=== PATIENT | male | born 1995 | race Caucasian/White ===

== ENCOUNTER 2020-10-11 15:26 | Emergency (ER) | payer MEDICAID, SELFPAY ==
[2020-10-11 15:53] VITALS: BP 140/88; PULSE 95; RESP 18; TEMP 36.9; O2SAT 99; BMI 29.2
[2020-10-11 16:35] VITALS: BP 146/82; PULSE 92; RESP 18; TEMP 36.4; O2SAT 97
--- NOTE | 2020-10-11 18:08 | ED_ITS ---
HPI - Allergic Reaction General Chief complaint: Allergic Reaction Stated complaint: ? ALLERGIC REACTION S/P EATING SANDWICH Time Seen by Provider: 10/11/20 18:02 Source: patient Mode of arrival: ambulatory Limitations: no limitations History of Present Illness HPI narrative: Patient is a 25-year-old male with no significant past medical history who states that approximately 6 hours ago he ate a egg cheese and red sandwich then took a nap woke up approximately 2 hours later and felt like he was having an allergic reaction, he describes this as feeling like some swelling in his throat and trouble swallowing. He states that has pretty much completely resolved. 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 He states he does not own EpiPen. He denies any tingling in the back of his throat or trouble breathing currently. Denies any swelling of his tongue or lips. Denies nausea and vomiting. Related Data Previous Rx's Medication Instructions Recorded diphenhydramine HCl [Benadryl] 25 mg PO Q6H PRN #10 cap 10/11/20 prednisone 50 mg PO DAILY #3 tab 10/11/20 Allergies Allergy/AdvReac Type Severity Reaction Status Date / Time No Known Allergies Allergy Unverified 03/08/20 19:50 [No Known Allergies*] Review of Systems Review of Systems: Yes all other systems are reviewed and are negative [facility] Past Medical History Medical History No known health problems Social History Social History Advance Directives: No Advance Directives Information Provided: Yes Physical Exam Vital Signs: Vital Signs: Last Vital Signs Temp 97.5 F 10/11/20 18:26 Pulse 84 10/11/20 18:26 Resp 18 10/11/20 18:26 BP 130/75 10/11/20 18:26 Pulse Ox 97 10/11/20 18:26 Body Mass Index 29.2 Const: General: cooperative, healthy appearing, comfortable, no acute distress and well developed Orientation/consciousness: patient oriented x3 Limitations: no limitations HENMT: Head: Yes normal to inspection General nose exam: Normal external nose present Face and sinus: Yes normal facial exam Mouth: Normal oral and palatal mucosa present, lip normal, tongue normal, oropharynx normal and moist mucous membranes Throat: Yes posterior oropharynx normal Eyes: General: appearance normal, both eyes and all related structures Neck: Neck: Yes normal visual inspection and Yes full ROM Resp: Effort & Inspection: normal respiratory effort and able to speak in complete sentences Auscultation: clear to auscultation bilaterally Cardio: Rate: regular rate Rhythm: regular rhythm Heart sounds: normal S1 and S2 GI: Inspection: Yes normal to inspection Skin: General skin exam: no rashes or lesions noted Neuro: General: patient oriented x3 Extrem: General: Yes normal to inspection Course Course Course Narrative: Patient is a 25-year-old male with no significant past medical history who reports eating a and she is in bread sandwich approximately 6 hours ago, states he took a nap and woke up 2 hours later feeling like he had some swelling in his throat and difficulty swallowing. He denies any other symptoms at this time and says the swelling and difficulty swallowing has pretty much resolved. He did not take any Benadryl or use an EpiPen. Patient's final signs are stable, he is breathing easily and physical exam revealed his lungs are clear. Will give patient Benadryl, famotidine and prednisone and observed for 2 more hours then likely discharge if stable. Reevaluation(s) Reevaluation #1: Patient's vital signs continue to be stable, he reports feeling much better. Will discharge home with strict instructions on when to return to the ER. Time: 19:44 Discharge Plan Discharge Clinical Impression: Allergic reaction Patient Disposition: Home, Self-Care Prescriptions: New diphenhydramine HCl [Benadryl] 25 mg capsule 25 mg PO Q6H PRN (Reason: allergic reaction) Qty: 10 RF: 0 prednisone 50 mg tablet 50 mg PO DAILY Qty: 3 RF: 0 Referrals: Colby Newell [Physician] - 2 days
[2020-10-11 18:26] VITALS: BP 130/75; PULSE 84; RESP 18; TEMP 36.4; O2SAT 97
[2020-10-11] MEDS: predniSONE 10 MG TABLET 50 MG PO (18:29)
[2020-10-11] MEDS: diphenhydrAMINE HCL 25 MG TABLET 50 MG PO (18:30)
[2020-10-11] MEDS: Famotidine 20 MG TABLET PO (18:30)
--- NOTE | 2020-10-11 19:23 | PC.NURSE ---
PT RESTING ON BED. RESP UNLABORED. NO SYMPTOMS. MONITOR NSR. 02 SAT 98%.
== END 2020-10-11 20:07 | disposition home or self-care (01) ==
PROVIDERS: Emergency Provider Internal Medicine
DX: L23.9 Allergic contact dermatitis, unspecified cause (principal); Z79.899 Other long term (current) drug therapy
CPT/HCPCS: 99284; Q0163

== ENCOUNTER 2021-08-06 04:45 | Emergency (ER) | payer MEDICAID, SELFPAY ==
[2021-08-06 04:46] VITALS: BP 158/99; PULSE 72; RESP 16; TEMP 36.6; O2SAT 100; BMI 28.0
[2021-08-06] MEDS: diphenhydrAMINE HCL 50 MG/ML VIAL IVPUSH (05:17)
[2021-08-06] MEDS: methylPREDNISolone Sod Succ 125 MG/2 ML VIAL IVPUSH (05:17)
[2021-08-06] MEDS: Famotidine/PF 20 MG/2 ML VIAL IVPUSH (05:17)
[2021-08-06] MEDS: 0.9 % Sodium Chloride 1,000 ML 999 ML IV (05:18)
--- NOTE | 2021-08-06 05:57 | ED.ALLEREA ---
HPI - Allergic Reaction General Chief complaint: Allergic Reaction Stated complaint: difficulty breathing; allergic reaction ? Time Seen by Provider: 08/06/21 05:03 Source: patient Mode of arrival: ambulatory Limitations: no limitations History of Present Illness HPI narrative: 26 years old male came in for evaluation of scratchy throat and uvula swelling. Woke up this morning with feeling itchy throat and the uvula was swollen, patient was able to swallow his own saliva, patient noted to have mild lips swelling and tongue swelling, but no stridor or difficulty breathing, patient had similar symptoms in the past was told allergic reaction. Patient declined taking any medication. No change in his daily routine, no change in the detergent, no change using soap. No voice change. Related Data Previous Rx's Medication Instructions Recorded diphenhydramine HCl 25 mg capsule 25 mg PO Q6H PRN #7 cap 10/11/20 (Benadryl) epinephrine 0.3 mg/0.3 mL 0.3 mg (0.3 mL) IM Q10M PRN #1 ea 10/11/20 injection syringe prednisone 50 mg tablet 50 mg PO DAILY #1 tab 10/11/20 prednisone 20 mg tablet 20 mg PO BID #6 tab 08/06/21 Allergies Allergy/AdvReac Type Severity Reaction Status Date / Time No Known Allergies Allergy Unverified 03/08/20 19:50 [No Known Allergies*] Review of Systems Review of Systems: All other systems are reviewed and are negative Constitutional: Reports as per HPI and Reports no additional constitutional complaints Eyes: Reports as per HPI and Reports no additional eye complaints Reports system reviewed and no additional complaints, except as documented Cardiovascular: Reports as per HPI and Reports no additional cardiovascular complaints Respiratory: Reports as per HPI and Reports no additional respiratory complaints Gastrointestinal: Reports as per HPI and Reports no additional gastrointestinal complaints Genitourinary: Reports no additional female genitourinary complaints Musculoskeletal: Reports no additional musculoskeletal complaints Skin/Breast: Reports system reviewed and no additional complaints, except as docu Psychiatric: Reports no additional psychiatric complaints Endocrine: Reports no additional endocrine complaints Hematologic/Lymphatic: Reports no additional hematologic/lymphatic complaints Allergic/Immunologic: Reports no additional allergic/immunologic complaints Reports system reviewed and no additional complaints, except as documented and Reports Abnormal speech present [facility] Past Medical History Medical History No known health problems Social History Social History Advance Directives: No Physical Exam ED Vital Signs: Vital Signs - 24 hr 08/06/21 04:46 08/06/21 06:25 Temperature 97.8 F Pulse Rate 72 58 Respiratory Rate 16 18 Blood Pressure 158/99 H 122/73 Pulse Oximetry 100 100 BMI result Body Mass Index 28.0 vital signs have been reviewed as appeared to be correct. Blood pressure normal. Heart rate normal. Respiration rate normal. Temperature normal. Oxygen saturation normal. Appearance: Alert. Oriented X3. No acute distress. Head: Normal external exam. Normocephalic. Atraumatic. No Tripp signs noted. No raccoon eyes noted Eyes: PERRLA. EOMI. Conjunctiva and sclera normal. Eyelids normal. ENT: TM's Normal. Pharynx normal. Uvula midline. Moist mucous membranes. No trismus noted. No drooling noted. No muffled voice noted. Patent airway with no stridor Neck: Normal inspection. Neck supple. FROM. No adenopathy. Thyroid Normal. No meningeal signs. No neck mass noted. CVS: Normal heart rate and rhythm. Heart sound normal. No murmurs noted. Pulses normal throughout. Respiratory: No respiratory distress. Painless inspiration. Breath sounds normal. No wheezes/rales/rhonchi noted. Chest nontender. No accessory muscle usage noted or decreased air movement noted. Abdomen: Soft and nontender. Bowel sounds normal in all 4 quadrants. No distention noted. No organomegaly noted. No visible injury noted. Back: No CVA tenderness. Full range of motion noted. Skin: Skin warm and dry. Normal skin color. Normal skin turgor. No rashes/lesions/lacerations noted. Extremities: No lower extremity edema. Extremities exhibit normal range of motion. Extremities nontender. Neuro: Oriented X 3. Cranial nerve exam: II-XII are grossly intact No motor deficit. No sensory deficit. Reflexes normal. Course Course Course Narrative: assessment and plan. Patient woke up with swelling of the uvula and tongue and lips. Patient is not taking any medication at home, with no change in his daily routine. Today's symptoms happened in the past patient did not see his PCP for further workup as an outpatient. Discharge the patient on prednisone for 3 days. Patient was instructed to follow up with his PCP for an outpatient workup for his symptoms. MDM - Allergic Reaction Medical Records Attestation: I reviewed the patient's medical records. Lab Data Attestation: I reviewed the patient's lab results. Labs: Lab Results 08/06/21 08/06/21 Range/Units 06:06 06:06 COVID-19 ([facility]IL[facility]INO) Negative (Negative) COVID-19 Clin Com See Note S. pyogenes GrpA DONOVAN Negative (Negative) Discharge Plan Discharge Clinical Impression: Angioedema Patient Disposition: Home, Self-Care Instructions: Angioedema (ED) Prescriptions: New prednisone 20 mg tablet 20 mg PO BID Qty: 6 0RF No Action epinephrine 0.3 mg/0.3 mL syringe 0.3 mg IM Q10M PRN (Reason: anaphylaxis) Qty: 1 1RF Rx Instructions: for 2 doses prednisone 50 mg tablet 50 mg PO DAILY Qty: 1 0RF diphenhydramine HCl [Benadryl] 25 mg capsule 25 mg PO Q6H PRN (Reason: allergic reaction) Qty: 7 0RF Referrals: Physician,None [Primary Care Provider] - 2 days
[2021-08-06 06:25] VITALS: BP 122/73; PULSE 58; RESP 18; O2SAT 100
[2021-08-06 06:41] LABS: COVID-19 Test Negative (Negative); IDNOW Serial# 55D5AD1C; Strep A Nucleic Acid Negative (Negative)
--- NOTE | 2021-08-06 06:50 | PC.NURSE ---
I assumed care of this pt upon his arrival to bed 1 from the waiting room. He presents for evaluation of lip and tongue swelling and the sensation that his uvula is enlarged. no redness or rash noted. THere is mild lip and tongue swelling noted on arrival, no uvular swelling., no hoarseness, no shortness of breath. He is speaking in full sentences, no cyanosis, room air O2 sat's 95% or better. IV access/labs were obtained. Ordered IVP meds have been administered. Pt is resting in bed awaiting MD dispo.
== END 2021-08-06 07:08 | disposition home or self-care (01) ==
PROVIDERS: Emergency Provider Emergency Medicine
DX: T78.3XXA Angioneurotic edema, initial encounter (principal); T78.40XA Allergy, unspecified, initial encounter; X58.XXXA Exposure to other specified factors, initial encounter
CPT/HCPCS: 87635; 87651; 96361; 96374; 96375; 99284; J1200; J2930

== ENCOUNTER 2021-11-07 22:38 | Emergency (ER) | payer OTHER, SELFPAY ==
[2021-11-07 23:33] VITALS: BP 131/80; PULSE 92; RESP 18; TEMP 37.6; O2SAT 98; BMI 28.8
[2021-11-08 00:14] LABS: COVID-19 Test Negative (Negative); IDNOW Serial# 08D9AD1C; Influenza A Negative (Negative); Influenza B2 Negative (Negative)
--- NOTE | 2021-11-08 00:53 | ED_ITS ---
HPI - URI/Sore Throat General Chief Complaint: General Medical Stated Complaint: Flu like symptoms Time Seen by Provider: 11/08/21 00:43 Source: patient Mode of arrival: ambulatory Limitations: no limitations History of Present Illness HPI Narrative: Patient presents to the emergency department for evaluation of low-grade fevers him 100.4, headache, and body aches for the past 2 days. He has been taking Tylenol which helps but then the headache and fever returns. Reports that his daughter was sick with similar symptoms 3 days ago. Denies nasal congestion, sore throat, neck pain, neck stiffness, cough, chest pain, palpitations, shortness of breath, difficulty breathing, nausea, vomiting, diarrhea, abdominal pain dysuria, urinary frequency. MD elicited complaint: fever Onset (ago): day(s) Consistency: intermittent Able to tolerate fluids by mouth: Yes Related Data Previous Rx's Medication Instructions Recorded diphenhydramine HCl 25 mg capsule 25 mg PO Q6H PRN #7 cap 10/11/20 (Benadryl) epinephrine 0.3 mg/0.3 mL 0.3 mg (0.3 mL) IM Q10M PRN #1 ea 10/11/20 injection syringe prednisone 50 mg tablet 50 mg PO DAILY #1 tab 10/11/20 prednisone 20 mg tablet 20 mg PO BID #6 tab 08/06/21 Allergies Allergy/AdvReac Type Severity Reaction Status Date / Time No Known Allergies Allergy Unverified 03/08/20 19:50 [No Known Allergies*] Review of Systems Review of Systems: Constitutional: Positive fever. No chills. No weakness. Positive body aches ENT/ Mouth: No Ear Pain, no Nasal Congestion, no sore throat, No Rhinorrhea, No Swallowing Difficulty Skin: No rash or itching. Cardiovascular: No chest pain. No palpitations. Respiratory: No shortness of breath. No cough. No sputum production. Gastrointestinal: No nausea. No vomiting. No diarrhea. No abdominal pain. Genitourinary: No burning micturition. No urinary frequency. Neurologic: Positive headache. No dizziness. No syncope. No numbness or tingling in the extremities. Musculoskeletal: No muscle pain. No back pain. No joint pain or stiffness. Yes all other systems are reviewed and are negative PMFSH Past Medical History Attestation statement: The following information was validated with the patient. Source: old records reviewed Medical History No known health problems Social History Social History Advance Directives: No Advance Directives Information Provided: No Physical Exam Vital Signs: Vital Signs: Last Vital Signs Temp 99.6 F 11/07/21 23:33 Pulse 92 11/07/21 23:33 Resp 18 11/07/21 23:33 BP 131/80 11/07/21 23:33 Pulse Ox 98 11/07/21 23:33 BMI result Body Mass Index 28.8 Vital signs have been reviewed as normal and appeared to be correct. Blood pressure normal.? Heart rate normal.? Respiration rate normal. Temperature normal.? Oxygen saturation normal. Appearance: Alert.?Oriented to person, place and time. No acute distress.?Normal affect. Eyes: Pupils equal, round and reactive to light.? ENT: TM normal bilaterally. Pharynx normal.?? Neck: Normal inspection.? Neck supple.??No cervical adenopathy CVS: Heart sounds normal. Normal heart rate and rhythm.? Pulses normal.?? Respiratory: No respiratory distress.? Lung sounds clear to auscultation bilaterally?? Abdomen: Soft and non-tender. Normoactive bowel sounds. Skin: Skin warm and dry.? Normal skin color.? ? Extremities: No lower extremity edema.? Neuro: Moves all extremities spontaneously. Sensation intact bilaterally. No motor deficits. Ambulates with normal steady gait. No meningismus Course Course Course Narrative: Patient is a 26-year-old male with no significant past medical history prese nting for low-grade fever, headache, body aches. COVID-19 testing negative. Influenza testing negative. At this time history and physical exam not consistent with meningitis. Well-appearing, nontoxic, afebrile, no tachycardia or tachypnea/hypoxia. Speaking clear full sentences, ambulatory with steady gait. Symptoms most consistent with viral syndrome, given recent sick exposure to his child. Discussed conservative treatment including rest, hydration, Tylenol/ibuprofen as needed for fever and body aches, recommended to have repeat COVID-19 testing in a couple of days if he continues to have symptoms. Advised to follow-up with primary care provider as needed, discussed reasons to return back to the emergency department. All questions were answered. Patient discharged home in stable condition. Provided with a return to work/school note. MDM - URI/Sore Throat Medical Records Attestation: I reviewed the patient's medical records. Lab Data Attestation: I reviewed the patient's lab results. Labs: Lab Results 11/07/21 11/07/21 Range/Units 23:24 23:24 COVID-19 ([facility]INO) Negative (Negative) COVID-19 Clin Com See Note Influenza Type A (DONOVAN) Negative (Negative) Influenza Type B (DONOVAN) Negative (Negative) Influenza A & B Note See Note Discharge Plan Discharge Clinical Impression: Acute viral syndrome Patient Disposition: Home, Self-Care Instructions: Viral Syndrome (ED) Additional Instructions: You can take ibuprofen 200 mg, 3 tablets (600mg) every 6-8 hours as needed for pain, in addition to Tylenol 500 mg, 2 tablets (1,000mg) every 4-6 hours as needed for pain, but not to exceed 3 doses daily (3,000mg).? Return to the emergency department any new or worsening symptoms or concerns. Follow-up with your primary care provider as needed. Prescriptions: No Action epinephrine 0.3 mg/0.3 mL syringe 0.3 mg IM Q10M PRN (Reason: anaphylaxis) Qty: 1 1RF Rx Instructions: for 2 doses prednisone 50 mg tablet 50 mg PO DAILY Qty: 1 0RF diphenhydramine HCl [Benadryl] 25 mg capsule 25 mg PO Q6H PRN (Reason: allergic reaction) Qty: 7 0RF prednisone 20 mg tablet 20 mg PO BID Qty: 6 0RF Stand Alone Forms: Work/School Release Interventions: ED Discharge Assessment Last Done: 11/08/21 01:09 Discharge Date/Time: 11/08/21 01:10
== END 2021-11-08 01:10 | disposition home or self-care (01) ==
PROVIDERS: Emergency Provider Internal Medicine
DX: B34.9 Viral infection, unspecified (principal); Z20.822 Contact with and (suspected) exposure to COVID-19
CPT/HCPCS: 87502; 87635; 99282; 99283

== ENCOUNTER 2022-06-05 23:10 | Emergency (ER) | payer OTHER, SELFPAY ==
[2022-06-05 23:13] VITALS: BP 129/96; PULSE 115; RESP 18; TEMP 37.2; O2SAT 97; BMI 28.8
--- NOTE | 2022-06-05 23:34 | ED_ITS ---
HPI - Fever General Chief Complaint: Fever Stated Complaint: sore throat ,cough Time Seen by Provider: 06/05/22 23:29 Source: patient Mode of arrival: ambulatory Limitations: no limitations History of Present Illness HPI Narrative: Patient comes to the emergency room complaining of 2 days of sore throat, subjective fever chills, body aches. Patient denies chest pain or shortness of breath. Patient complaining of a sore throat as well. Related Data Previous Rx's Medication Instructions Recorded diphenhydramine HCl 25 mg capsule 25 mg PO Q6H PRN allergic reaction 10/11/20 (Benadryl) #7 caps epinephrine 0.3 mg/0.3 mL 0.3 mg (0.3 mL) IM Q10M PRN 10/11/20 injection syringe anaphylaxis #1 ea prednisone 50 mg tablet 50 mg PO DAILY #1 tab 10/11/20 prednisone 20 mg tablet 20 mg PO BID #6 tabs 08/06/21 ibuprofen 600 mg tablet 600 mg PO Q8H PRN fever or pain 06/06/22 #20 tabs Allergies Allergy/AdvReac Type Severity Reaction Status Date / Time No Known Allergies Allergy Unverified 03/08/20 19:50 [No Known Allergies*] Review of Systems Review of Systems: Constitutional : No Weight loss, complaining of subjective fever and complaining of Chills, No Night Sweats, complaining of fatigue, diffuse myalgias ENT/Mouth : No Hearing loss, No Ear Pain, No Nasal Congestion, No Sinus Pain, No Hoarseness, complaining of sore throat, No Rhinorrhea, No Swallowing Difficulty Eyes: No Eye Pain, No Swelling, No Redness, No Foreign Body, No Discharge, No Vision Changes Cardiovascular : No Chest Pain, No SOB, No Dyspnea on Exertion, No Orthopnea, No Edema, No Palpitations Respiratory : No Cough, No Sputum, No Wheezing, No Smoke Exposure, No Dyspnea Gastrointestinal : No Nausea, No Vomiting, No Diarrhea, No Constipation, No abdominal Pain, No Hematochezia, No Melena Genitourinary : no irregular bleeding, No Dysuria, No Urinary Frequency, No Hematuria, No Urinary Incontinence, No Urgency, No Flank Pain, No Urinary Flow Changes, No Hesitancy Musculoskeletal : No joint pain, complaining of diffuse Myalgias, No Joint Swelling Skin : No Skin Lesions, No rash Neuro : No Weakness, No Numbness, No Paresthesias, No Loss of Consciousness, No Dizziness, No Headache Psych : No Anxiety/Panic, No Depression, No SI/HI/AH/VH, No Social Issues, Heme/Lymph: No Bruising, No Bleeding,No Lymphadenopathy Endocrine : No Polyuria, No Polydipsia, No Temperature Intolerance PMF Past Medical History Medical History No known health problems Social History Social History Advance Directives: No Advance Directives Information Provided: No Physical Exam Vital Signs: Vital Signs: Last Vital Signs Temp 98.9 F 06/05/22 23:13 Pulse 115 H 06/05/22 23:13 Resp 18 06/05/22 23:13 BP 129/96 H 06/05/22 23:13 Pulse Ox 97 06/05/22 23:13 O2 Del Method 06/05/22 23:13 BMI result Body Mass Index 28.8 Const: Other: Appearance: Alert. Oriented X3. No acute distress. Eyes: Pupils equal, round and reactive to light. ENT: Pharynx erythematous, bilateral tonsils erythematous but no visualized abscesses, no significantly enlarged. Neck: Normal inspection. Neck supple. No lymph nodes noted. No crepitus CVS: Normal heart rate and rhythm. Pulses normal. Normal S1 and S2 Respiratory: No respiratory distress. Breath sounds normal. No Wheezing. No rales Abdomen: Soft and nontender. No rigidity. No distention. Skin: Skin warm and dry. Normal skin color. Normal skin turgor. Extremities: No lower extremity edema. No Lacerations. No Rash Neuro: Oriented X 3. No motor deficit. No sensory deficit. Moving all extrem ities. No slurred speech. CN 2 through 12 grossly intact Psych: calm, cooperative, normal affect Course Course Course Narrative: Patient likely has viral pharyngitis. Patient was given p.o. ibuprofen and Decadron, viscous lidocaine for symptomatic relief. Patient's serology tests are pending Patient tested negative for influenza, RSV, COVID and strep. Medications Administered Discontinued Medications Generic Name Dose Route Start Last Admin Trade Name Freq PRN Reason Stop Dose Admin Dexamethasone Sodium Phosphate 6 mg 06/05/22 23:34 06/05/22 23:51 Dexamethasone Sod Phosphate 4 Mg/Ml Vial IVPUSH 06/05/22 23:35 6 mg ONCE ONE Administration Ibuprofen 600 mg 06/05/22 23:34 06/05/22 23:51 Ibuprofen 600 Mg Tablet PO 06/05/22 23:35 600 mg ONCE ONE Administration Lidocaine HCl 15 ml 06/05/22 23:34 06/05/22 23:51 Lidocaine Hcl Viscous 2 % 15 Ml Solution MUCOUS MEM 06/05/22 23:35 15 ml ONCE ONE Administration Medical Decision Making Differential Diagnosis Differential Diagnoses: The differential diagnosis associated with the presentation includes (Viral pharyngitis, bacterial pharyngitis, COVID, influenza) Lab Data MDM Lab Attestation statement: I reviewed the patient's lab results. Labs: Lab Results 06/05/22 06/05/22 Range/Units 23:20 23:20 Influenza Type A (PCR) NEGATIVE (Negative) Influenza Type B (PCR) NEGATIVE (Negative) RSV RNA Qual (PCR) NEGATIVE (Negative) SARS-CoV-2 RNA (RT-PCR) NEGATIVE (Negative) S. pyogenes GrpA DONOVAN Negative (Negative) Discharge Plan Discharge Clinical Impression: Acute viral pharyngitis Patient Disposition: Home, Self-Care Instructions: Pharyngitis (ED) Additional Instructions: Please follow-up with your primary care physician tomorrow. If you have any worsening or new symptoms, please return to the emergency room or call 911 Prescriptions: New ibuprofen 600 mg tablet 600 mg PO Q8H PRN (Reason: fever or pain) Qty: 20 0RF No Action epinephrine 0.3 mg/0.3 mL syringe 0.3 mg IM Q10M PRN (Reason: anaphylaxis) Qty: 1 1RF Rx Instructions: for 2 doses prednisone 50 mg tablet 50 mg PO DAILY Qty: 1 0RF diphenhydramine HCl [Benadryl] 25 mg capsule 25 mg PO Q6H PRN (Reason: allergic reaction) Qty: 7 0RF prednisone 20 mg tablet 20 mg PO BID Qty: 6 0RF
[2022-06-05 23:47] LABS: Strep A Nucleic Acid Negative (Negative)
[2022-06-05] MEDS: dexAMETHasone sod phosphate 4 MG/ML VIAL 6 MG IVPUSH (23:51)
[2022-06-05] MEDS: Ibuprofen 600 MG TABLET PO (23:51)
[2022-06-05] MEDS: Lidocaine HCl Viscous 2 % 15 ML SOLUTION MUCOUS MEM (23:51)
[2022-06-06 00:11] LABS: Influenza A PCR NEGATIVE (Negative); Influenza B PCR NEGATIVE (Negative); Resp Syncy Virus RNA Qual PCR NEGATIVE (Negative); SARS COV2 PCR INHOUSE NEGATIVE (Negative)
== END 2022-06-06 00:30 | disposition home or self-care (01) ==
PROVIDERS: Emergency Provider Emergency Medicine; PCP Internal Medicine
DX: J02.9 Acute pharyngitis, unspecified (principal); R50.9 Fever, unspecified; M79.10 Myalgia, unspecified site; Z20.822 Contact with and (suspected) exposure to COVID-19
CPT/HCPCS: 0241U; 87651; 99283; J1100

== ENCOUNTER 2022-06-09 06:24 | Emergency (ER) | payer OTHER, SELFPAY ==
[2022-06-09 06:25] VITALS: BP 153/96; PULSE 88; RESP 18; TEMP 37.2; O2SAT 98; BMI 28.8
--- NOTE | 2022-06-09 06:59 | ED_ITS ---
HPI - URI/Sore Throat General Chief Complaint: Upper Respiratory Symptoms Stated Complaint: flu like symptoms Time Seen by Provider: 06/09/22 06:57 Source: patient and old records reviewed History of Present Illness HPI Narrative: Patient complaining of URI symptoms which started yesterday. He states he was seen here 4 days ago for similar syndrome. Workup was negative including strep test. He was treated in the emergency department with Decadron, ibuprofen, and lidocaine swish and swallow. He was discharged home on ibuprofen which helped. Symptoms started again yesterday. No fevers or chills. Cough. Nausea with cough but no vomiting His main complaint is throat pain which makes it difficult to swallow. He denies medical problems. Denies tobacco use. He does not take any medications. He has no allergies to medications Related Data Previous Rx's Medication Instructions Recorded diphenhydramine HCl 25 mg capsule 25 mg PO Q6H PRN allergic reaction 10/11/20 (Benadryl) #7 caps epinephrine 0.3 mg/0.3 mL 0.3 mg (0.3 mL) IM Q10M PRN 10/11/20 injection syringe anaphylaxis #1 ea prednisone 50 mg tablet 50 mg PO DAILY #1 tab 10/11/20 prednisone 20 mg tablet 20 mg PO BID #6 tabs 08/06/21 ibuprofen 600 mg tablet 600 mg PO Q8H PRN fever or pain 06/06/22 #20 tabs prednisone 20 mg tablet 40 mg PO DAILY #10 tabs 06/09/22 Allergies Allergy/AdvReac Type Severity Reaction Status Date / Time No Known Allergies Allergy Unverified 06/09/22 06:25 [No Known Allergies*] Review of Systems Constitutional: Comments: No fevers or chills. Positive malaise ENT: Comments: Sore throat with dysphagia Cardiovascular: Comments: No chest pain Respiratory: Comments: Cough without sputum Gastrointestinal: Comments: Nausea but no vomiting. No abdominal pain Musculoskeletal: Comments: No leg pain Integumentary/Breasts: Comments: No rash Neurologic: Comments: No focal weakness PMFSH Past Medical History Medical History No known health problems Social History Social History Alcohol intake: never Smoked in Last 30 Days: No Use of substances other than those prescribed or required for medical reasons: No Advance Directives: No Advance Directives Information Provided: No Physical Exam Vital Signs: Vital Signs: Last Vital Signs Temp 99.0 F 06/09/22 06:25 Pulse 88 06/09/22 06:25 Resp 18 06/09/22 06:25 BP 153/96 H 06/09/22 06:25 Pulse Ox 98 06/09/22 06:25 O2 Del Method 06/09/22 06:25 BMI result Body Mass Index 28.8 Const: Other: Awake and alert. No acute distress. Speaking in full sentences. HEENT: Other: Throat with mild erythema but no pharyngeal edema. No exudate. Neck: Other: Full range of motion. No meningismus Chest: Other: Clear and equal bilaterally without wheezes rales or rhonchi Resp: Other: Clear equal bilaterally without wheezes rales or rhonchi Cardio: Other: Regular rate and rhythm without murmurs rubs or gallops GI: Other: Soft nontender nondistended Skin: Other: Warm pink and dry without rash Neuro: Other: No obvious focal neuro deficits. Ambulatory without difficulty Extrem: Other: No calf tenderness or pedal edema Course Course Course Narrative: 07:06. Toradol for pain 08:22. Rapid strep is negative Respiratory panel negative for influenza, COVID, RSV. Likely other viral pathogen. Supportive care. Medications Administered Discontinued Medications Generic Name Dose Route Start Last Admin Trade Name Freq PRN Reason Stop Dose Admin Ketorolac Tromethamine 30 mg 06/09/22 06:59 06/09/22 07:42 Ketorolac Tromethamine 30 Mg/Ml Vial IM 06/09/22 07:00 30 mg ONCE ONE Administration Medical Decision Making Medical Decision Making [facility] Narrative: Patient with URI symptoms. Recent workup negative. Will repeat the workup today. Differential Diagnosis Strep pharyngitis Influenza COVID-19 Other viral illness such as RSV or rhino virus adenovirus No obvious evidence for bacterial infection if strep is negative. Lab Data Labs: Lab Results 06/09/22 06/09/22 Range/Units 06:31 07:26 Influenza Type A (PCR) NEGATIVE (Negative) Influenza Type B (PCR) NEGATIVE (Negative) RSV RNA Qual (PCR) NEGATIVE (Negative) SARS-CoV-2 RNA (RT-PCR) NEGATIVE (Negative) S. pyogenes GrpA DONOVAN Negative (Negative) Discharge Plan Discharge Clinical Impression: Upper respiratory infection Patient Disposition: Home, Self-Care Instructions: Pharyngitis (ED), Upper Respiratory Infection (ED) Prescriptions: New prednisone 20 mg tablet 40 mg PO DAILY Qty: 10 0RF No Action epinephrine 0.3 mg/0.3 mL syringe 0.3 mg IM Q10M PRN (Reason: anaphylaxis) Qty: 1 1RF Rx Instructions: for 2 doses prednisone 50 mg tablet 50 mg PO DAILY Qty: 1 0RF diphenhydramine HCl [Benadryl] 25 mg capsule 25 mg PO Q6H PRN (Reason: allergic reaction) Qty: 7 0RF prednisone 20 mg tablet 20 mg PO BID Qty: 6 0RF ibuprofen 600 mg tablet 600 mg PO Q8H PRN (Reason: fever or pain) Qty: 20 0RF
[2022-06-09 07:13] LABS: Influenza A PCR NEGATIVE (Negative); Influenza B PCR NEGATIVE (Negative); Resp Syncy Virus RNA Qual PCR NEGATIVE (Negative); SARS COV2 PCR INHOUSE NEGATIVE (Negative)
[2022-06-09] MEDS: Ketorolac Tromethamine 30 MG/ML VIAL IM (07:42)
[2022-06-09 08:18] LABS: Strep A Nucleic Acid Negative (Negative)
[2022-06-09 08:49] VITALS: BP 128/86; PULSE 78; RESP 16; TEMP 36.9; O2SAT 98
== END 2022-06-09 08:50 | disposition home or self-care (01) ==
PROVIDERS: Emergency Provider Emergency Medicine; PCP Internal Medicine
DX: J06.9 Acute upper respiratory infection, unspecified (principal); R05.9 Cough, unspecified; Z20.822 Contact with and (suspected) exposure to COVID-19; Z79.899 Other long term (current) drug therapy
CPT/HCPCS: 0241U; 36415; 87651; 96372; 99284; J1885

== ENCOUNTER 2022-06-17 03:04 | Emergency (ER) | payer OTHER, SELFPAY ==
--- NOTE | ~2022-06-17 | CT_ITS ---
EXAMINATION: CT ABDOMEN AND PELVIS WITH CONTRAST CLINICAL INFORMATION: Periumbilical pain COMPARISON: None TECHNIQUE: Multidetector volumetric images were obtained from the superior aspect of the liver through the pubic symphysis following administration 85 mL of Omnipaque 350 intravenous contrast. Sagittal and coronal reformatted images were obtained on the technologist's workstation. Oral contrast: No This CT examination was performed using dose optimization techniques as appropriate, variously including the following: *Automated exposure control *Adjustment of mA and/or kV according to patient size (this includes techniques or standardized protocols for targeted exams where dose is matched to indication/reason for exam; i.e. extremities or head) *Use of iterative reconstruction technique DLP: 596 mGy-cm FINDINGS: LUNG BASES: The visualized lung bases are unremarkable. LIVER, GALLBLADDER, AND BILIARY TREE: The liver is normal in size, shape, and attenuation. No focal hepatic lesion or biliary ductal dilatation is present. The gallbladder is unremarkable with no evidence of radiopaque gallstones, gallbladder wall thickening, or obvious pericholecystic inflammatory changes. PANCREAS: Unremarkable. SPLEEN: Unremarkable. ADRENAL GLANDS: Unremarkable. KIDNEYS AND URETERS: The kidneys are normal in size, shape, and attenuation. No hydronephrosis, hydroureter, or calculi seen. No perinephric stranding. BLADDER: Unremarkable. GASTROINTESTINAL TRACT: The small and large bowel are unremarkable. The appendix is normal. ABDOMINAL WALL: No significant hernia is appreciated. LYMPH NODES: Normal. VASCULAR: Unremarkable. PELVIC VISCERA: Unremarkable. OSSEOUS STRUCTURES: Unremarkable. CT/CT abdomen pelvis w IV con IMPRESSION: No potential etiology for patient's abdominal pain is identified.
[2022-06-17 03:21] VITALS: BP 115/71; PULSE 120; RESP 18; TEMP 38.6; O2SAT 96; BMI 27.3
[2022-06-17 03:44] LABS: Basophils Percent Auto 0.2 % (0-2); Eosinophils Percent Auto 0.3 % (0-4); Hemoglobin 16.4 g/dl (14.0-18.0); Imm Gran Abs Auto 0.11 X10*3/uL (0.00-0.03); Imm Gran Pct Auto 0.7 % (0.0-0.4); Lymphocytes Absolute Auto 0.6 X10*3/uL (1.2-4.9); MANUAL DIFF FLAG SCAN; Mean Corpuscular HGB Conc 33.5 g/dl (31.0-36.0); Mean Corpuscular Hemoglobin 28.6 pg (27.0-33.0); Mean Corpuscular Volume 85.5 fL (80.0-98.0); Monocytes Absolute Auto 0.6 X10*3/uL (0.1-1.2); Monocytes Percent Auto 3.5 % (2-11); Neutrophils Absolute Auto 14.6 x10*3/uL (2.0-8.3); Neutrophils Percent Auto 91.3 % (45-73); Platelet Count 271 X10*3/uL (160-400); Red Blood Count 5.73 X10*6/uL (4.60-5.80); Red Cell Distribution Width 12.4 % (11.0-16.0); SCAN SMEAR FLAG 1; White Blood Count 15.9 X10*3/uL (4.8-10.8)
[2022-06-17 04:03] LABS: SLIDE REVIEW VERIFIED
[2022-06-17 04:06] LABS: Lactic Acid 1.1 mmol/L (0.5-2.0)
[2022-06-17 04:09] LABS: Alanine Aminotransferase 30 U/L (0-40); Albumin Level 4.5 g/dL (3.5-5.0); Alkaline Phosphatase 74 U/L (39-117); Anion Gap 13 (12-20); Aspartate Amino Transferase 21 U/L (5-37); Bilirubin Total 0.9 mg/dL (0.0-1.0); Blood Urea Nitrogen 18 mg/dL (9-16); Calcium 9.3 mg/dL (8.4-10.2); Carbon Dioxide 26 mmol/L (22-29); Chloride 104 mmol/L (96-108); Creatinine Clr Calc Pharmacy 106.4; Estimated Glomerular Filt Rate > 60; Glucose Random 121 mg/dL (60-115); Potassium 4.4 mmol/L (3.3-5.1); Sodium 139 mmol/L (135-145); Total Protein 7.7 g/dL (6.5-8.0)
[2022-06-17 04:21] LABS: Appearance Urine Clear; Color Urine Yellow; Glucose Urine UA Negative (Negative); Leukocyte Esterase Urine Negative (Negative); Nitrite Urine Negative (Negative); PH 5.5 (5.0-9.0); UMIC TRIGGER UACC YES; Urine Blood Trace (Negative); Urine Ketones Negative (Negative); Urine Protein Negative (Neg-Trace)
[2022-06-17 04:22] LABS: Influenza A PCR NEGATIVE (Negative); Influenza B PCR NEGATIVE (Negative); Resp Syncy Virus RNA Qual PCR NEGATIVE (Negative); SARS COV2 PCR INHOUSE NEGATIVE (Negative)
[2022-06-17 04:26] LABS: Bacteria Urine None Seen (None Seen); Hyaline Casts Urine 0-2 /LPF (0-2); RBC Urine 0-2 /HPF (0-2); Squamous Epithelial Cell Urine 0-2 /HPF (0-2); WBC Urine 0-5 /HPF (0-5)
--- NOTE | 2022-06-17 04:38 | ED_ITS ---
HPI - Abdominal Pain General Chief Complaint: Abdominal Pain Stated Complaint: vomitting, diarrhea ,chills bodyaches Time Seen by Provider: 06/17/22 04:32 Source: patient Mode of arrival: ambulatory Limitations: no limitations History of Present Illness HPI narrative: Patient comes in the emergency room complaining of nausea vomiting and diarrhea. Patient states this started approximately 8 hours ago. Patient denies fever, but has been having chills, diffuse body aches and headache. Patient denies chest pain or shortness of breath, no URI or UTI symptoms Related Data Previous Rx's Medication Instructions Recorded diphenhydramine HCl 25 mg capsule 25 mg PO Q6H PRN allergic reaction 10/11/20 (Benadryl) #7 caps epinephrine 0.3 mg/0.3 mL 0.3 mg (0.3 mL) IM Q10M PRN 10/11/20 injection syringe anaphylaxis #1 ea prednisone 50 mg tablet 50 mg PO DAILY #1 tab 10/11/20 prednisone 20 mg tablet 20 mg PO BID #6 tabs 08/06/21 ibuprofen 600 mg tablet 600 mg PO Q8H PRN fever or pain 06/06/22 #20 tabs prednisone 20 mg tablet 40 mg PO DAILY #10 tabs 06/09/22 loperamide 2 mg capsule 2 mg PO Q6H PRN loose stool #10 06/17/22 caps ondansetron 4 mg disintegrating 4 mg PO Q6H PRN nausea and 06/17/22 tablet vomiting #10 tabs Allergies Allergy/AdvReac Type Severity Reaction Status Date / Time No Known Allergies Allergy Unverified 06/09/22 06:25 [No Known Allergies*] Review of Systems Review of Systems Constitutional : No Weight loss, No Fever, No Chills, No Night Sweats, No Fatigue, No Malaise ENT/Mouth : No Hearing loss, No Ear Pain, No Nasal Congestion, No Sinus Pain, No Hoarseness, No sore throat, No Rhinorrhea, No Swallowing Difficulty Eyes: No Eye Pain, No Swelling, No Redness, No Foreign Body, No Discharge, No Vision Changes Cardiovascular : No Chest Pain, No SOB, No Dyspnea on Exertion, No Orthopnea, No Edema, No Palpitations Respiratory : No Cough, No Sputum, No Wheezing, No Smoke Exposure, No Dyspnea Gastrointestinal : Complaining of nausea vomiting and diarrhea, complaining of diffuse abdominal cramping Genitourinary : no irregular bleeding, No Dysuria, No Urinary Frequency, No Hematuria, No Urinary Incontinence, No Urgency, No Flank Pain, No Urinary Flow Changes, No Hesitancy Musculoskeletal : No joint pain, No Myalgias, No Joint Swelling Skin : No Skin Lesions, No rash Neuro : No Weakness, No Numbness, No Paresthesias, No Loss of Consciousness, No Dizziness, No Headache Psych : No Anxiety/Panic, No Depression, No SI/HI/AH/VH, No Social Issues, Heme/Lymph: No Bruising, No Bleeding,No Lymphadenopathy Endocrine : No Polyuria, No Polydipsia, No Temperature Intolerance [facility] Past Medical History Medical History No known health problems Social History Social History Alcohol intake: never Smoked in Last 30 Days: No Use of substances other than those prescribed or required for medical reasons: No Advance Directives: No Advance Directives Information Provided: Yes Physical Exam ED Vital Signs: Vital Signs - 24 hr 06/17/22 03:21 06/17/22 06:32 Temperature 101.5 F H 98.2 F Pulse Rate 120 H 96 Respiratory Rate 18 14 Blood Pressure 115/71 103/62 Pulse Oximetry 96 97 Oxygen Delivery Method Room Air Room Air BMI result Body Mass Index 27.3 Const Other: Appearance: Alert. Oriented X3. No acute distress. Well-appearing Eyes: Pupils equal, round and reactive to light. ENT: Pharynx normal. Neck: Normal inspection. Neck supple. No lymph nodes noted. No crepitus CVS: Normal heart rate and rhythm. Pulses normal. Normal S1 and S2 Respiratory: No respiratory distress. Breath sounds normal. No Wheezing. No rales Abdomen: Soft and nontender. No rigidity. No distention. Skin: Skin warm and dry. Normal skin color. Normal skin turgor. Extremities: No lower extremity edema. No Lacerations. No Rash Neuro: Oriented X 3. No motor deficit. No sensory deficit. Moving all extremities. No slurred speech. CN 2 through 12 grossly intact Psych: calm, cooperative, normal affect Course Course Course Narrative: Patient does not seem to have significant abdominal pain on physical exam. Patient is well-appearing. Patient receiving IV fluids, IV Toradol, IV Zofran and p.o. loperamide CT scan with contrast negative for any acute pathology. Overall patient feeling better, no nausea vomiting or diarrhea. No abdominal pain. Discussed the CT scan with the patient. Medical Decision Making Medical Decision Making [facility] Narrative: Patient likely having a viral syndrome. On physical exam, patient has a benign abdomen, imaging not indicated at this time. Leukocytosis likely reactive to vomiting and diarrhea. Differential Diagnosis Differential Diagnoses: The differential diagnosis associated with the presentation includes (Viral gastroenteritis, COVID, influenza) Lab Data [facility] Lab Attestation statement: I reviewed the patient's lab results. Result Diagrams: 06/17/22 03:38 06/17/22 03:38 Labs: Lab Results 06/17/22 06/17/22 06/17/22 Range/Units 03:35 03:38 03:38 WBC 15.9 H (4.8-10.8) X10*3/uL RBC 5.73 (4.60-5.80) X10*6/uL Hgb 16.4 (14.0-18.0) g/dl Hct 49.0 (42.0-52.0) % MCV 85.5 (80.0-98.0) fL MCH 28.6 (27.0-33.0) pg MCHC 33.5 (31.0-36.0) g/dl RDW 12.4 (11.0-16.0) % Plt Count 271 (160-400) X10*3/uL MPV 9.0 L (9.4-12.4) fL Immature Gran % (Auto) 0.7 H (0.0-0.4) % Neut % (Auto) 91.3 H (45-73) % Lymph % (Auto) 4.0 L (20-40) % [place] % (Auto) 3.5 (2-11) % Eos % (Auto) 0.3 (0-4) % Baso % (Auto) 0.2 (0-2) % Lymph # (Auto) 0.6 L (1.2-4.9) X10*3/uL [place] # (Auto) 0.6 (0.1-1.2) X10*3/uL Eos # (Auto) 0.0 (0.0-0.4) X10*3/uL Baso # (Auto) 0.0 (0.0-0.2) X10*3/uL Abs Immat Gran (auto) 0.11 H (0.00-0.03) X10*3/uL Absolute Neuts (auto) 14.6 H (2.0-8.3) x10*3/uL Absolute Nucleated RBC 0.000 (0.0-0.012) X10*3/uL Nucleated RBC % (auto) 0.0 (0.0-0.2) /100WBC Smear Tech's Comments VERIFIED Sodium 139 (135-145) mmol/L Potassium 4.4 (3.3-5.1) mmol/L Chloride 104 (96-108) mmol/L Carbon Dioxide 26 (22-29) mmol/L Anion Gap 13 (12-20) BUN 18 H (9-16) mg/dL Creatinine 1.07 (0.5-1.4) mg/dL Estim Creat Clear Calc 106.4 Estimated GFR > 60 Random Glucose 121 H (60-115) mg/dL Lactic Acid (0.5-2.0) mmol/L Calcium 9.3 (8.4-10.2) mg/dL Total Bilirubin 0.9 (0.0-1.0) mg/dL AST 21 (5-37) U/L ALT 30 (0-40) U/L Alkaline Phosphatase 74 (39-117) U/L Total Protein 7.7 (6.5-8.0) g/dL Albumin 4.5 (3.5-5.0) g/dL Urine Color Urine Appearance Urine pH (5.0-9.0) Ur Specific [place] (1.005-1.025) Urine Protein (Neg-Trace) mg/dL Urine Glucose (UA) (Negative) mg/dL Urine Ketones (Negative) mg/dL Urine Blood (Negative) Urine Nitrite (Negative) Ur Leukocyte Esterase (Negative) Urine RBC (0-2) /HPF Urine WBC (0-5) /HPF Ur Squamous Epith Cells (0-2) /HPF Urine Bacteria (None Seen) Hyaline Casts (0-2) /LPF Influenza Type A (PCR) NEGATIVE (Negative) Influenza Type B (PCR) NEGATIVE (Negative) RSV RNA Qual (PCR) NEGATIVE (Negative) SARS-CoV-2 RNA (RT-PCR) NEGATIVE (Negative) 06/17/22 06/17/22 Range/Units 03:52 04:15 WBC (4.8-10.8) X10*3/uL RBC (4.60-5.80) X10*6/uL Hgb (14.0-18.0) g/dl Hct (42.0-52.0) % MCV (80.0-98.0) fL MCH (27.0-33.0) pg MCHC (31.0-36.0) g/dl RDW (11.0-16.0) % Plt Count (160-400) X10*3/uL MPV (9.4-12.4) fL Immature Gran % (Auto) (0.0-0.4) % Neut % (Auto) (45-73) % Lymph % (Auto) (20-40) % [place] % (Auto) (2-11) % Eos % (Auto) (0-4) % Baso % (Auto) (0-2) % Lymph # (Auto) (1.2-4.9) X10*3/uL [place] # (Auto) (0.1-1.2) X10*3/uL Eos # (Auto) (0.0-0.4) X10*3/uL Baso # (Auto) (0.0-0.2) X10*3/uL Abs Immat Gran (auto) (0.00-0.03) X10*3/uL Absolute Neuts (auto) (2.0-8.3) x10*3/uL Absolute Nucleated RBC (0.0-0.012) X10*3/uL Nucleated RBC % (auto) (0.0-0.2) /100WBC Smear Tech's Comments Sodium (135-145) mmol/L Potassium (3.3-5.1) mmol/L Chloride (96-108) mmol/L Carbon Dioxide (22-29) mmol/L Anion Gap (12-20) BUN (9-16) mg/dL Creatinine (0.5-1.4) mg/dL Estim Creat Clear Calc Estimated GFR Random Glucose (60-115) mg/dL Lactic Acid 1.1 (0.5-2.0) mmol/L Calcium (8.4-10.2) mg/dL Total Bilirubin (0.0-1.0) mg/dL AST (5-37) U/L ALT (0-40) U/L Alkaline Phosphatase (39-117) U/L Total Protein (6.5-8.0) g/dL Albumin (3.5-5.0) g/dL Urine Color Yellow Urine Appearance Clear Urine pH 5.5 (5.0-9.0) Ur Specific [place] 1.020 (1.005-1.025) Urine Protein Negative (Neg-Trace) mg/dL Urine Glucose (UA) Negative (Negative) mg/dL Urine Ketones Negative (Negative) mg/dL Urine Blood Trace H (Negative) Urine Nitrite Negative (Negative) Ur Leukocyte Esterase Negative (Negative) Urine RBC 0-2 (0-2) /HPF Urine WBC 0-5 (0-5) /HPF Ur Squamous Epith Cells 0-2 (0-2) /HPF Urine Bacteria None Seen (None Seen) Hyaline Casts 0-2 (0-2) /LPF Influenza Type A (PCR) (Negative) Influenza Type B (PCR) (Negative) RSV RNA Qual (PCR) (Negative) SARS-CoV-2 RNA (RT-PCR) (Negative) Radiology Impression Discussion of test interpretation with radiology: I have reviewed the radiologist's reading. Radiologist Impression: FINDINGS: LUNG BASES: The visualized lung bases are unremarkable.? LIVER, GALLBLADDER, AND BILIARY TREE: The liver is normal in size, shape, and attenuation. No focal hepatic lesion or biliary ductal dilatation is present. The gallbladder is unremarkable with no evidence of radiopaque gallstones, gallbladder wall thickening, or obvious pericholecystic inflammatory changes.? PANCREAS: Unremarkable.? SPLEEN: Unremarkable.? ADRENAL GLANDS: Unremarkable.? KIDNEYS AND URETERS: The kidneys are normal in size, shape, and attenuation. No hydronephrosis, hydroureter, or calculi seen. No perinephric stranding. ? BLADDER: Unremarkable.? GASTROINTESTINAL TRACT: The small and large bowel are unremarkable. The appendix is normal.? ABDOMINAL WALL: No significant hernia is appreciated.? LYMPH NODES: Normal. VASCULAR: Unremarkable. PELVIC VISCERA: Unremarkable.? OSSEOUS STRUCTURES: Unremarkable.? CT/CT abdomen pelvis w IV con IMPRESSION: No potential etiology for patient's abdominal pain is identified. Medications Administered Discontinued Medications Generic Name Dose Route Start Last Admin Trade Name Freq PRN Reason Stop Dose Admin Acetaminophen 650 mg 06/17/22 05:57 06/17/22 06:30 Acetaminophen 325 Mg Tablet PO 06/17/22 05:58 650 mg ONCE ONE Administration Sodium Chloride 1,000 mls @ 999 mls/hr 06/17/22 04:37 06/17/22 05:01 Ns IVCONT 06/17/22 05:37 999 mls/hr .Q1H1M ONE Administration Iohexol 85 ml 06/17/22 05:56 06/17/22 05:57 Iohexol 350 Mg/Ml 100 Ml Infus..Btl IV 06/17/22 05:57 85 ml ONCE ONE Administration Ketorolac Tromethamine 30 mg 06/17/22 04:37 06/17/22 04:59 Ketorolac Tromethamine 30 Mg/Ml Vial IVPUSH 06/17/22 04:38 30 mg ONCE ONE Administration Loperamide HCl 4 mg 06/17/22 04:37 06/17/22 04:59 Loperamide Hcl 2 Mg Capsule PO 06/17/22 04:38 4 mg ONCE ONE Administration Ondansetron HCl 4 mg 06/17/22 04:37 06/17/22 05:00 Ondansetron Hcl 4 Mg/2 Ml Vial IVPUSH 06/17/22 04:38 4 mg ONCE ONE Administration Discharge Plan Discharge Clinical Impression: Acute viral syndrome, Nausea vomiting and diarrhea Patient Disposition: Home, Self-Care Instructions: Acute Nausea and Vomiting (ED), Abdominal Pain (ED) Additional Instructions: Please follow-up with your primary care physician tomorrow. If you have any worsening or new symptoms, please return to the emergency room or call 911 Prescriptions: New ondansetron 4 mg tablet,disintegrating 4 mg PO Q6H PRN (Reason: nausea and vomiting) Qty: 10 0RF loperamide 2 mg capsule 2 mg PO Q6H PRN (Reason: loose stool) Qty: 10 0RF No Action epinephrine 0.3 mg/0.3 mL syringe 0.3 mg IM Q10M PRN (Reason: anaphylaxis) Qty: 1 1RF Rx Instructions: for 2 doses prednisone 50 mg tablet 50 mg PO DAILY Qty: 1 0RF diphenhydramine HCl [Benadryl] 25 mg capsule 25 mg PO Q6H PRN (Reason: allergic reaction) Qty: 7 0RF prednisone 20 mg tablet 20 mg PO BID Qty: 6 0RF ibuprofen 600 mg tablet 600 mg PO Q8H PRN (Reason: fever or pain) Qty: 20 0RF prednisone 20 mg tablet 40 mg PO DAILY Qty: 10 0RF
[2022-06-17] MEDS: iohexoL 350 MG/ML 100 ML INFUS..BTL 85 ML IV (05:57)
[2022-06-17] MEDS: Acetaminophen 325 MG TABLET 650 MG PO (06:30)
[2022-06-17 06:32] VITALS: BP 103/62; PULSE 96; RESP 14; TEMP 36.8; O2SAT 97
== END 2022-06-17 07:26 | disposition home or self-care (01) ==
PROVIDERS: Emergency Provider Emergency Medicine; PCP Internal Medicine
DX: B34.9 Viral infection, unspecified (principal); M79.10 Myalgia, unspecified site; R11.2 Nausea with vomiting, unspecified; Z20.822 Contact with and (suspected) exposure to COVID-19; Z79.899 Other long term (current) drug therapy
CPT/HCPCS: 0241U; 36415; 74177; 80053; 81001; 83605; 85025; 87040; 96374; 96375; 99284; 99285; J1885; J2405; Q9967

== ENCOUNTER 2022-06-20 20:27 | Emergency (ER) | payer OTHER, SELFPAY ==
[2022-06-20 21:04] VITALS: BP 145/84; PULSE 91; RESP 20; TEMP 36.2; O2SAT 98; BMI 26.6
[2022-06-20 22:30] LABS: Basophils Percent Auto 0.4 % (0-2); Eosinophils Absolute Auto 0.2 X10*3/uL (0.0-0.4); Eosinophils Percent Auto 1.6 % (0-4); Hematocrit 50.3 % (42.0-52.0); Hemoglobin 16.6 g/dl (14.0-18.0); Imm Gran Abs Auto 0.03 X10*3/uL (0.00-0.03); Imm Gran Pct Auto 0.3 % (0.0-0.4); Lymphocytes Absolute Auto 2.3 X10*3/uL (1.2-4.9); MANUAL DIFF FLAG NO; Mean Corpuscular Hemoglobin 28.4 pg (27.0-33.0); Mean Platelet Volume 9.1 fL (9.4-12.4); Monocytes Absolute Auto 0.7 X10*3/uL (0.1-1.2); Monocytes Percent Auto 6.5 % (2-11); Neutrophils Absolute Auto 8.1 x10*3/uL (2.0-8.3); Neutrophils Percent Auto 71.2 % (45-73); Platelet Count 334 X10*3/uL (160-400); Red Blood Count 5.85 X10*6/uL (4.60-5.80); Red Cell Distribution Width 12.4 % (11.0-16.0); White Blood Count 11.4 X10*3/uL (4.8-10.8)
[2022-06-20 23:08] LABS: Alanine Aminotransferase 54 U/L (0-40); Albumin Level 5.1 g/dL (3.5-5.0); Alkaline Phosphatase 79 U/L (39-117); Anion Gap 13 (12-20); Aspartate Amino Transferase 33 U/L (5-37); Bilirubin Direct 0.2 mg/dL (0.0-0.5); Bilirubin Total 0.7 mg/dL (0.0-1.0); Blood Urea Nitrogen 17 mg/dL (9-16); Calcium 9.8 mg/dL (8.4-10.2); Carbon Dioxide 23 mmol/L (22-29); Chloride 107 mmol/L (96-108); Creatinine Clr Calc Pharmacy 105.4; Estimated Glomerular Filt Rate > 60; Glucose Random 92 mg/dL (60-115); Potassium 4.7 mmol/L (3.3-5.1); Sodium 138 mmol/L (135-145); Total Protein 8.7 g/dL (6.5-8.0)
[2022-06-21 01:36] VITALS: BP 117/75; PULSE 77; RESP 16; TEMP 36.8; O2SAT 97
[2022-06-21 01:44] LABS: Appearance Urine Clear; Color Urine Dark Yellow; Glucose Urine UA Negative (Negative); Leukocyte Esterase Urine Negative (Negative); Nitrite Urine Negative (Negative); PH 5.5 (5.0-9.0); Specific Gravity - Urine >= 1.030 (1.005-1.025); UMIC TRIGGER UACC YES; Urine Blood Negative (Negative); Urine Ketones 15 mg/dL (Negative); Urine Protein 30 (1+) mg/dL (Neg-Trace)
--- NOTE | 2022-06-21 01:54 | ED_ITS ---
HPI - Abdominal Pain General Chief Complaint: Abdominal Pain Stated Complaint: vomiting, diarrhea, abdominal pain x 3 day Time Seen by Provider: 06/21/22 01:53 Source: patient Mode of arrival: ambulatory Limitations: no limitations History of Present Illness HPI narrative: Patient otherwise healthy been having nausea vomiting diarrhea for last 3 days was seen here on 06/[address] scan of the abdomen was negative a back care as has vomiting and diarrhea with epigastric pain patient looks very comfortable denies any anxiety/stress vomited about 5-6 times at home and same number of diarrhea Related Data Previous Rx's Medication Instructions Recorded diphenhydramine HCl 25 mg capsule 25 mg PO Q6H PRN allergic reaction 10/11/20 (Benadryl) #7 caps epinephrine 0.3 mg/0.3 mL 0.3 mg (0.3 mL) IM Q10M PRN 10/11/20 injection syringe anaphylaxis #1 ea prednisone 50 mg tablet 50 mg PO DAILY #1 tab 10/11/20 prednisone 20 mg tablet 20 mg PO BID #6 tabs 08/06/21 ibuprofen 600 mg tablet 600 mg PO Q8H PRN fever or pain 06/06/22 #20 tabs prednisone 20 mg tablet 40 mg PO DAILY #10 tabs 06/09/22 loperamide 2 mg capsule 2 mg PO Q6H PRN loose stool #10 06/17/22 caps ondansetron 4 mg disintegrating 4 mg PO Q6H PRN nausea and 06/17/22 tablet vomiting #10 tabs dicyclomine 20 mg tablet 20 mg PO QID PRN abdominal pain 06/21/22 #20 tabs Allergies Allergy/AdvReac Type Severity Reaction Status Date / Time No Known Allergies Allergy Verified 06/20/22 21:06 [No Known Allergies*] Review of Systems Review of Systems Yes all other systems are reviewed and are negative PMFSH Past Medical History Medical History No known health problems Social History Social History Alcohol intake: never Smoked in Last 30 Days: No Use of substances other than those prescribed or required for medical reasons: No Advance Directives: No Advance Directives Information Provided: No Physical Exam ED Vital Signs: Vital Signs - 24 hr 06/20/22 21:04 06/21/22 01:36 Temperature 97.2 F 98.3 F Pulse Rate 91 77 Respiratory Rate 20 16 Blood Pressure 145/84 H 117/75 Pulse Oximetry 98 97 Oxygen Delivery Method Room Air Room Air BMI result Body Mass Index 26.6 Appearance: Alert. Oriented X3. No acute distress. Eyes: No pallor or icterus ENT: Pharynx normal. Oral Mucosa moist Neck: Normal inspection. Neck supple. CVS: Normal heart rate and rhythm. Pulses normal. Respiratory: No respiratory distress. Equal air entry bilateral, no wheezing/rales/rhonchi Abdomen: Soft and nontender. Bowel sounds are present, no mass palpable, no CVA tenderness Skin: Skin warm and dry. Normal skin color. Normal skin turgor. Extremities: No lower extremity edema. No calf tenderness Neuro: Oriented X 3. Medical Decision Making Medical Decision Making [facility] Narrative: Patient with vomiting that stable labs discharge patient on dicyclomine clinically stable no vomiting in the ER Lab Data MDM Lab Attestation statement: I reviewed the patient's lab results. Result Diagrams: 06/20/22 22:25 06/20/22 22:25 Labs: Lab Results 06/20/22 06/20/22 06/21/22 Range/Units 22:25 22:25 01:38 WBC 11.4 H (4.8-10.8) X10*3/uL RBC 5.85 H (4.60-5.80) X10*6/uL Hgb 16.6 (14.0-18.0) g/dl Hct 50.3 (42.0-52.0) % MCV 86.0 (80.0-98.0) fL MCH 28.4 (27.0-33.0) pg MCHC 33.0 (31.0-36.0) g/dl RDW 12.4 (11.0-16.0) % Plt Count 334 (160-400) X10*3/uL MPV 9.1 L (9.4-12.4) fL Immature Gran % (Auto) 0.3 (0.0-0.4) % Neut % (Auto) 71.2 (45-73) % Lymph % (Auto) 20.0 (20-40) % [place] % (Auto) 6.5 (2-11) % Eos % (Auto) 1.6 (0-4) % Baso % (Auto) 0.4 (0-2) % Lymph # (Auto) 2.3 (1.2-4.9) X10*3/uL [place] # (Auto) 0.7 (0.1-1.2) X10*3/uL Eos # (Auto) 0.2 (0.0-0.4) X10*3/uL Baso # (Auto) 0.0 (0.0-0.2) X10*3/uL Abs Immat Gran (auto) 0.03 (0.00-0.03) X10*3/uL Absolute Neuts (auto) 8.1 (2.0-8.3) x10*3/uL Absolute Nucleated RBC 0.000 (0.0-0.012) X10*3/uL Nucleated RBC % (auto) 0.0 (0.0-0.2) /100WBC Sodium 138 (135-145) mmol/L Potassium 4.7 (3.3-5.1) mmol/L Chloride 107 (96-108) mmol/L Carbon Dioxide 23 (22-29) mmol/L Anion Gap 13 (12-20) BUN 17 H (9-16) mg/dL Creatinine 1.08 (0.5-1.4) mg/dL Estim Creat Clear Calc 105.4 Estimated GFR > 60 Random Glucose 92 (60-115) mg/dL Calcium 9.8 (8.4-10.2) mg/dL Total Bilirubin 0.7 (0.0-1.0) mg/dL Direct Bilirubin 0.2 (0.0-0.5) mg/dL AST 33 D (5-37) U/L ALT 54 H (0-40) U/L Alkaline Phosphatase 79 (39-117) U/L Total Protein 8.7 H (6.5-8.0) g/dL Albumin 5.1 H (3.5-5.0) g/dL Lipase 23 (8-78) U/L Urine Color Dark Yellow Urine Appearance Clear Urine pH 5.5 (5.0-9.0) Ur Specific [place] >= 1.030 H (1.005-1.025) Urine Protein 30 (1+) H (Neg-Trace) mg/dL Urine Glucose (UA) Negative (Negative) mg/dL Urine Ketones 15 (Negative) mg/dL Urine Blood Negative (Negative) Urine Nitrite Negative (Negative) Ur Leukocyte Esterase Negative (Negative) Urine RBC 11-20 H (0-2) /HPF Urine WBC 0-5 (0-5) /HPF Ur Squamous Epith Cells 0-2 (0-2) /HPF Urine Bacteria None Seen (None Seen) Hyaline Casts 6-10 (0-2) /LPF Medications Administered Discontinued Medications Generic Name Dose Route Start Last Admin Trade Name Freq PRN Reason Stop Dose Admin Dicyclomine HCl 20 mg 06/21/22 02:03 06/21/22 02:27 Dicyclomine Hcl 10 Mg Capsule PO 06/21/22 02:04 20 mg ONCE ONE Administration Sodium Chloride 1,000 mls @ 999 mls/hr 06/21/22 02:02 06/21/22 02:25 Ns IV 06/21/22 03:02 999 mls/hr .Q1H1M ONE Administration Discharge Plan Discharge Clinical Impression: Gastroenteritis Patient Disposition: Home, Self-Care Instructions: Gastroenteritis (ED) Additional Instructions: Drink plenty of fluids Take medicine for abdominal cramps and nausea as prescribed Prescriptions: New dicyclomine 20 mg tablet 20 mg PO QID PRN (Reason: abdominal pain) Qty: 20 0RF No Action epinephrine 0.3 mg/0.3 mL syringe 0.3 mg IM Q10M PRN (Reason: anaphylaxis) Qty: 1 1RF Rx Instructions: for 2 doses prednisone 50 mg tablet 50 mg PO DAILY Qty: 1 0RF diphenhydramine HCl [Benadryl] 25 mg capsule 25 mg PO Q6H PRN (Reason: allergic reaction) Qty: 7 0RF prednisone 20 mg tablet 20 mg PO BID Qty: 6 0RF ibuprofen 600 mg tablet 600 mg PO Q8H PRN (Reason: fever or pain) Qty: 20 0RF prednisone 20 mg tablet 40 mg PO DAILY Qty: 10 0RF ondansetron 4 mg tablet,disintegrating 4 mg PO Q6H PRN (Reason: nausea and vomiting) Qty: 10 0RF loperamide 2 mg capsule 2 mg PO Q6H PRN (Reason: loose stool) Qty: 10 0RF
[2022-06-21 02:00] LABS: Bacteria Urine None Seen (None Seen); Squamous Epithelial Cell Urine 0-2 /HPF (0-2); WBC Urine 0-5 /HPF (0-5)
[2022-06-21 02:16] LABS: Lipase 23 U/L (8-78)
[2022-06-21] MEDS: 0.9 % Sodium Chloride 1,000 ML 999 ML IV (02:25)
[2022-06-21] MEDS: Dicyclomine HCl 10 MG CAPSULE 20 MG PO (02:27)
== END 2022-06-21 03:50 | disposition home or self-care (01) ==
PROVIDERS: Emergency Provider Internal Medicine; PCP Internal Medicine
DX: K52.9 Noninfective gastroenteritis and colitis, unspecified (principal); R11.2 Nausea with vomiting, unspecified; Z79.899 Other long term (current) drug therapy
CPT/HCPCS: 36415; 80048; 80076; 81001; 83690; 85025; 96360; 99284

== ENCOUNTER 2022-07-24 03:49 | Emergency (ER) | payer OTHER, SELFPAY ==
[2022-07-24 04:34] VITALS: BP 141/70; PULSE 110; RESP 20; TEMP 38.3; O2SAT 98; BMI 26.7
[2022-07-24] MEDS: Acetaminophen 325 MG TABLET 975 MG PO (05:03)
[2022-07-24 05:29] LABS: MANUAL DIFF FLAG NO
[2022-07-24 05:30] LABS: Basophils Percent Auto 0.3 % (0-2); Eosinophils Percent Auto 0.4 % (0-4); Hematocrit 43.9 % (42.0-52.0); Hemoglobin 14.4 g/dl (14.0-18.0); Imm Gran Abs Auto 0.03 X10*3/uL (0.00-0.03); Imm Gran Pct Auto 0.4 % (0.0-0.4); Lymphocytes Absolute Auto 0.9 X10*3/uL (1.2-4.9); Lymphocytes Percent Auto 11.9 % (20-40); Mean Corpuscular HGB Conc 32.8 g/dl (31.0-36.0); Mean Corpuscular Hemoglobin 28.3 pg (27.0-33.0); Mean Corpuscular Volume 86.2 fL (80.0-98.0); Mean Platelet Volume 9.1 fL (9.4-12.4); Monocytes Absolute Auto 0.9 X10*3/uL (0.1-1.2); Monocytes Percent Auto 11.9 % (2-11); Neutrophils Absolute Auto 5.7 x10*3/uL (2.0-8.3); Neutrophils Percent Auto 75.1 % (45-73); Platelet Count 221 X10*3/uL (160-400); Red Blood Count 5.09 X10*6/uL (4.60-5.80); Red Cell Distribution Width 12.3 % (11.0-16.0); White Blood Count 7.6 X10*3/uL (4.8-10.8)
[2022-07-24 05:58] LABS: Anion Gap 14 (12-20); Blood Urea Nitrogen 13 mg/dL (9-16); Calcium 8.8 mg/dL (8.4-10.2); Carbon Dioxide 24 mmol/L (22-29); Chloride 105 mmol/L (96-108); Creatinine Clr Calc Pharmacy 107.4; Estimated Glomerular Filt Rate > 60; Glucose Random 94 mg/dL (60-115); Potassium 4.5 mmol/L (3.3-5.1); Sodium 138 mmol/L (135-145)
[2022-07-24 06:06] LABS: Influenza A PCR NEGATIVE (Negative); Influenza B PCR NEGATIVE (Negative); Resp Syncy Virus RNA Qual PCR NEGATIVE (Negative); SARS COV2 PCR INHOUSE POSITIVE (Negative)
--- NOTE | 2022-07-24 08:37 | ED.GENADULT ---
HPI - General Adult General Chief complaint: General Medical <JUAN JOSE Bobo Last Filed: 07/24/22 09:05> Stated complaint: flu like symptoms <JUAN JOSE Bobo Last Filed: 07/24/22 09:05> Time Seen by Provider: 07/24/22 08:35 <JUAN JOSE Bobo Last Filed: 07/24/22 09:05> Source: patient <JUAN JOSE Bobo Last Filed: 07/24/22 09:05> Mode of arrival: ambulatory <JUAN JOSE Bobo Last Filed: 07/24/22 09:05> Limitations: no limitations <JUAN JOSE Bobo Last Filed: 07/24/22 09:05> History of Present Illness HPI narrative: Patient is a 26 year old assigned male at with no reported medical history presenting to the emergency department today with body aches and a sore throat. Patient states that he woke up this morning with body aches and a sore throat. Patient denies any dizziness, lightheadedness, abdominal pain, nausea, vomiting, fever, chills, blurry vision, double vision, loss of vision, chest pain, difficulty breathing, shortness of breath, back pain, night sweats, pain with urination, increased urinary frequency, increased urinary urgency, blood in his urine or stool, syncope or a near syncopal episode, recent trauma or falls, bowel incontinence, bladder incontinence, bowel retention, bladder retention, or any other complaints at this time. <JUAN JOSE Bobo Last Filed: 07/24/22 09:05> Onset (ago): hour(s) <JUAN JOSE Bobo Last Filed: 07/24/22 09:05> Severity: mild <JUAN JOSE Bobo Last Filed: 07/24/22 09:05> Severity scale (1-10): 2 <JUAN JOSE Bobo Last Filed: 07/24/22 09:05> Quality: aching <JUAN JOSE Bobo Last Filed: 07/24/22 09:05> Pain Consistency: constant <JUAN JOSE Bobo Last Filed: 07/24/22 09:05> Relieving factors: none <JUAN JOSE Bobo Last Filed: 07/24/22 09:05> Exacerbating factors: none <JUAN JOSE Bobo Last Filed: 07/24/22 09:05> Treatments prior to arrival: none <JUAN JOSE Bobo Last Filed: 07/24/22 09:05> Related Data Home medications: Previous Rx's Medication Instructions Recorded diphenhydramine HCl 25 mg capsule 25 mg PO Q6H PRN allergic reaction 10/11/20 (Benadryl) #7 caps epinephrine 0.3 mg/0.3 mL 0.3 mg (0.3 mL) IM Q10M PRN 10/11/20 injection syringe anaphylaxis #1 ea prednisone 50 mg tablet 50 mg PO DAILY #1 tab 10/11/20 prednisone 20 mg tablet 20 mg PO BID #6 tabs 08/06/21 ibuprofen 600 mg tablet 600 mg PO Q8H PRN fever or pain 06/06/22 #20 tabs prednisone 20 mg tablet 40 mg PO DAILY #10 tabs 06/09/22 loperamide 2 mg capsule 2 mg PO Q6H PRN loose stool #10 06/17/22 caps ondansetron 4 mg disintegrating 4 mg PO Q6H PRN nausea and 06/17/22 tablet vomiting #10 tabs dicyclomine 20 mg tablet 20 mg PO QID PRN abdominal pain 06/21/22 #20 tabs <JUAN JOSE Bobo - Last Filed: 07/24/22 09:05> Allergies/adverse reactions: Allergies Allergy/AdvReac Type Severity Reaction Status Date / Time No Known Allergies Allergy Verified 06/20/22 21:06 [No Known Allergies*] <JUAN JOSE Bobo Last Filed: 07/24/22 09:05> Review of Systems Constitutional: Constitutional: Reports no additional constitutional complaints, Reports body ache(s), Denies chills, Denies fever(s) and Denies night sweats <JUAN JOSE Bobo Last Filed: 07/24/22 09:05> Eyes: Eyes: Reports no additional eye complaints, Denies blurry vision, Denies change in vision, Denies diplopia, Denies eye discharge, Denies loss of vision and Denies eye pain <JUAN JOSE Bobo Last Filed: 07/24/22 09:05> ENT: Denies dizziness and Reports sore throat <JUAN JOSE Bobo Last Filed: 07/24/22 09:05> Cardiovascular: Cardiovascular: Reports no additional cardiovascular complaints, Denies chest pain, Denies lightheadedness, Denies Loss of Consciousness and Denies dyspnea <JUAN JOSE Bobo Last Filed: 07/24/22 09:05> Respiratory: Respiratory: Reports no additional respiratory complaints and Denies dyspnea <JUAN JOSE Bobo Last Filed: 07/24/22 09:05> Gastrointestinal: Gastrointestinal: Reports no additional gastrointestinal complaints, Denies abdominal pain, Denies melena, Denies hematochezia, Denies change in bowel habits and Denies change in stool character <JUAN JOSE Bobo Last Filed: 07/24/22 09:05> Genitourinary: Genitourinary: Reports no additional male genitourinary complaints, Denies hematuria, Denies oliguria, Denies difficulty urinating, Denies dysuria, Denies urinary frequency, Denies urinary hesitancy, Denies urinary incontinence and Denies urinary urgency <JUAN JOSE Bobo Last Filed: 07/24/22 09:05> Musculoskeletal: Musculoskeletal: Reports no additional musculoskeletal complaints, Denies numbness and Denies tingling <JUAN JOSE Bobo Last Filed: 07/24/22 09:05> Neurologic: Denies dizziness, Denies loss of vision, Denies numbness and Denies tingling <JUAN JOSE Bobo Last Filed: 07/24/22 09:05> Psychiatric: Psychiatric: Reports no additional psychiatric complaints <JUAN JOSE Bobo Last Filed: 07/24/22 09:05> Endocrine: Endocrine: Reports no additional endocrine complaints <JUAN JOSE Bobo Last Filed: 07/24/22 09:05> Hematologic/Lymphatic: Hematologic/Lymphatic: Reports no additional hematologic/lymphatic complaints <JUAN JOSE Bobo Last Filed: 07/24/22 09:05> Allergic/Immunologic: Allergic/Immunologic: Reports no additional allergic/immunologic complaints <JUAN JOSE Bobo Last Filed: 07/24/22 09:05> PMFSH Past Medical History Attestation statement: The following information was validated with the patient. <JUAN JOSE Bobo - Last Filed: 07/24/22 09:05> Source: old records reviewed and nursing notes reviewed <JUA NJOSE Bobo - Last Filed: 07/24/22 09:05> Medical History: Medical History No known health problems <JUAN JOSE Bobo - Last Filed: 07/24/22 09:05> Social History Social History: Social History Alcohol intake: never Advance Directives: No <JUAN JOSE Bobo - Last Filed: 07/24/22 09:05> Physical Exam ED Vital Signs: Vital Signs - 24 hr 07/24/22 04:34 07/24/22 08:46 07/24/22 08:49 Temperature 101.0 F H 98.7 F 98.7 F Pulse Rate 110 H 85 85 Respiratory Rate 20 16 16 Blood Pressure 141/70 H 118/64 118/64 Pulse Oximetry 98 98 Oxygen Delivery Method Room Air Room Air BMI result Body Mass Index 26.7 <JUAN JOSE Bobo - Last Filed: 07/24/22 09:05> Vital Signs - 24 hr 07/24/22 04:34 07/24/22 08:46 07/24/22 08:49 Temperature 101.0 F H 98.7 F 98.7 F Pulse Rate 110 H 85 85 Respiratory Rate 20 16 16 Blood Pressure 141/70 H 118/64 118/64 Pulse Oximetry 98 98 Oxygen Delivery Method Room Air Room Air BMI result Body Mass Index 26.7 <Mario Mathews MD - Last Filed: 07/28/22 11:59> Const General: cooperative, no acute distress, alert and awake <JUAN JOSE Bobo - Last Filed: 07/24/22 09:05> Nutritional Appearance: well nourished <JUAN JOSE Bobo - Last Filed: 07/24/22 09:05> Orientation/consciousness: patient oriented x3 <JUAN JOSE Bobo - Last Filed: 07/24/22 09:05> Limitations: no limitations <JUAN JOSE Bobo Last Filed: 07/24/22 09:05> HENMT Head: Yes normal to inspection and Yes atraumatic <JUAN JOSE Bobo Last Filed: 07/24/22 09:05> Ears: hearing grossly normal bilaterally and external ears normal <Jeanie JUAN JOSE Ortiz - Last Filed: 07/24/22 09:05> General nose exam: Normal external nose present, no nasal discharge noted and no epistaxis <Jeaniejackson HendricksJUAN JOSE pisano - Last Filed: 07/24/22 09:05> Face and sinus: Yes normal facial exam, No abrasion and No laceration <Jeanie Angel CA - Last Filed: 07/24/22 09:05> Mouth: Normal oral and palatal mucosa present, no drooling and no muffled voice <Jeanie Ortiz CA - Last Filed: 07/24/22 09:05> Eyes General: appearance normal, both eyes and all related structures <Jeanie Ortiz CA - Last Filed: 07/24/22 09:05> Periorbital: periorbital findings normal <JUAN JOSE Bobo - Last Filed: 07/24/22 09:05> Eyelids: Yes eyelids normal <Jeanie Ortiz CA - Last Filed: 07/24/22 09:05> Conjunctivae: conjunctivae normal <Jeanie Ortiz CA - Last Filed: 07/24/22 09:05> Pupils: Equal, round and reactive pupils present <JUAN JOSE Bobo - Last Filed: 07/24/22 09:05> EOM: EOMs intact bilaterally <Jeanie Ortiz CA - Last Filed: 07/24/22 09:05> Neck Neck: Yes normal visual inspection, Yes full ROM and Yes no lymphadenopathy <Jeanie Ortiz CA - Last Filed: 07/24/22 09:05> Chest Chest palpation & inspection: normal inspection of the chest <JUAN JOSE Bobo - Last Filed: 07/24/22 09:05> Resp Effort & Inspection: normal respiratory effort and able to speak in complete sentences <JUAN JOSE Bobo - Last Filed: 07/24/22 09:05> Auscultation: clear to auscultation bilaterally <JUAN JOSE Bobo - Last Filed: 07/24/22 09:05> Cardio Rate: regular rate <JUAN JOSE Bobo - Last Filed: 07/24/22 09:05> Rhythm: regular rhythm <Jeanie JUAN JOSE Ortiz - Last Filed: 07/24/22 09:05> GI Inspection: Yes normal to inspection <Jeaniejackson HendricksJUAN JOSE pisano - Last Filed: 07/24/22 09:05> Palpation (GI): Soft to palpation, not firm, nontender, no guarding and not rigid <Jeanie JUAN JOSE Ortiz - Last Filed: 07/24/22 09:05> Neuro General: patient oriented x3 and moves all extremities <JUAN JOSE Bobo - Last Filed: 07/24/22 09:05> Cranial nerves: Yes Equal, round and reactive pupils present <JUAN JOSE Bobo - Last Filed: 07/24/22 09:05> Cognition (Neuro): normal cognition <JUAN JOSE Bobo - Last Filed: 07/24/22 09:05> Motor exam (neuro): 5/5 motor strength present throughout <JUAN JOSE Bobo - Last Filed: 07/24/22 09:05> Sensory Exam: Normal double simultaneous stimulation for sensation <JUAN JOSE Bobo - Last Filed: 07/24/22 09:05> Coordination: [id number] test normal <Jeanie Ortiz PA - Last Filed: 07/24/22 09:05> Extrem General: Yes normal to inspection, Yes full ROM and Yes capillary refill normal <Jeanie JUAN JOSE Ortiz - Last Filed: 07/24/22 09:05> Psych Appearance: grossly normal <JUAN JOSE Bobo - Last Filed: 07/24/22 09:05> Mental Status: mental status grossly normal <JUAN JOSE Bobo - Last Filed: 07/24/22 09:05> Affect: normal affect <JUAN JOSE Bobo - Last Filed: 07/24/22 09:05> Attitude: cooperative <JUAN JOSE Bobo - Last Filed: 07/24/22 09:05> Thought process: Normal thought process present <JUAN JOSE Bobo - Last Filed: 07/24/22 09:05> Thought content: Normal thought content present <JUAN JOSE Bobo - Last Filed: 07/24/22 09:05> Insight: Good insight present (Psych) <JUAN JOSE Bobo - Last Filed: 07/24/22 09:05> Medications Administered Discontinued Medications Generic Name Dose Route Start Last Admin Trade Name Freq PRN Reason Stop Dose Admin Acetaminophen 975 mg 07/24/22 05:00 07/24/22 05:03 Acetaminophen 325 Mg Tablet PO 07/24/22 05:01 975 mg ONCE ONE Administration Ibuprofen 600 mg 07/24/22 08:38 07/24/22 08:46 Ibuprofen 600 Mg Tablet PO 07/24/22 08:39 600 mg ONCE ONE Administration <JUAN JOSE Bobo - Last Filed: 07/24/22 09:05> Medications Administered Discontinued Medications Generic Name Dose Route Start Last Admin Trade Name Freq PRN Reason Stop Dose Admin Acetaminophen 975 mg 07/24/22 05:00 07/24/22 05:03 Acetaminophen 325 Mg Tablet PO 07/24/22 05:01 975 mg ONCE ONE Administration Ibuprofen 600 mg 07/24/22 08:38 07/24/22 08:46 Ibuprofen 600 Mg Tablet PO 07/24/22 08:39 600 mg ONCE ONE Administration <Mario Mathews MD - Last Filed: 07/28/22 11:59> Medical Decision Making Medical Decision Making MDM Narrative: Patient is a 26] year old assigned male at with no reported medical history presenting to the emergency department today with body aches and a sore throat. Patient's physical exam showed a febrile individual but was otherwise unremarkable. Patient's blood work was unremarkable. Patient's COVID-19 test was positive. I explained my physical exam findings as well as all test results to the patient. I answered all questions asked by the patient. Patient received PO Tylenol and PO Motrin which he stated helped his symptoms significantly. I stressed the importance of the patient taking his medication as prescribed. I stressed the importance of the patient following up with his primary care provider. I stressed the importance of the patient returning to the emergency department immediately if his symptoms were to worsen or if he were to develop any dizziness, shortness of breath, difficulty breathing, chest pain, blurry vision, loss of vision, nausea, vomiting, abdominal pain, fever, chills, back pain, or any other complaints. Patient verbalized agreement and understanding with this treatment plan and discharge. <JUAN JOSE Bobo - Last Filed: 07/24/22 09:05> Differential Diagnosis Differential Diagnoses: The differential diagnosis associated with the presentation includes <JUAN JOSE Bobo - Last Filed: 07/24/22 09:05> COVID-19, viral illness <JUAN JOSE Bobo - Last Filed: 07/24/22 09:05> Lab Data MDM Lab Attestation statement: I reviewed the patient's lab results. <JUAN JOSE Bobo - Last Filed: 07/24/22 09:05> Result Diagrams: 07/24/22 05:25 07/24/22 05:25 <JUAN JOSE Bobo - Last Filed: 07/24/22 09:05> Labs: Lab Results 07/24/22 07/24/22 07/24/22 Range/Units 05:25 05:25 05:25 WBC 7.6 (4.8-10.8) X10*3/uL RBC 5.09 (4.60-5.80) X10*6/uL Hgb 14.4 (14.0-18.0) g/dl Hct 43.9 (42.0-52.0) % MCV 86.2 (80.0-98.0) fL MCH 28.3 (27.0-33.0) pg MCHC 32.8 (31.0-36.0) g/dl RDW 12.3 (11.0-16.0) % Plt Count 221 D (160-400) X10*3/uL MPV 9.1 L (9.4-12.4) fL Immature Gran % (Auto) 0.4 (0.0-0.4) % Neut % (Auto) 75.1 H (45-73) % Lymph % (Auto) 11.9 L (20-40) % [place] % (Auto) 11.9 H (2-11) % Eos % (Auto) 0.4 (0-4) % Baso % (Auto) 0.3 (0-2) % Lymph # (Auto) 0.9 L (1.2-4.9) X10*3/uL [place] # (Auto) 0.9 (0.1-1.2) X10*3/uL Eos # (Auto) 0.0 (0.0-0.4) X10*3/uL Baso # (Auto) 0.0 (0.0-0.2) X10*3/uL Abs Immat Gran (auto) 0.03 (0.00-0.03) X10*3/uL Absolute Neuts (auto) 5.7 (2.0-8.3) x10*3/uL Absolute Nucleated RBC 0.000 (0.0-0.012) X10*3/uL Nucleated RBC % (auto) 0.0 (0.0-0.2) /100WBC Sodium 138 (135-145) mmol/L Potassium 4.5 (3.3-5.1) mmol/L Chloride 105 (96-108) mmol/L Carbon Dioxide 24 (22-29) mmol/L Anion Gap 14 (12-20) BUN 13 (9-16) mg/dL Creatinine 1.06 (0.5-1.4) mg/dL Estim Creat Clear Calc 107.4 Estimated GFR > 60 Random Glucose 94 (60-115) mg/dL Calcium 8.8 D (8.4-10.2) mg/dL Influenza Type A (PCR) NEGATIVE (Negative) Influenza Type B (PCR) NEGATIVE (Negative) RSV RNA Qual (PCR) NEGATIVE (Negative) SARS-CoV-2 RNA (RT-PCR) POSITIVE A (Negative) <JUAN JOSE Bobo - Last Filed: 07/24/22 09:05> Lab Results 07/24/22 07/24/22 07/24/22 Range/Units 05:25 05:25 05:25 WBC 7.6 (4.8-10.8) X10*3/uL RBC 5.09 (4.60-5.80) X10*6/uL Hgb 14.4 (14.0-18.0) g/dl Hct 43.9 (42.0-52.0) % MCV 86.2 (80.0-98.0) fL MCH 28.3 (27.0-33.0) pg MCHC 32.8 (31.0-36.0) g/dl RDW 12.3 (11.0-16.0) % Plt Count 221 D (160-400) X10*3/uL MPV 9.1 L (9.4-12.4) fL Immature Gran % (Auto) 0.4 (0.0-0.4) % Neut % (Auto) 75.1 H (45-73) % Lymph % (Auto) 11.9 L (20-40) % [place] % (Auto) 11.9 H (2-11) % Eos % (Auto) 0.4 (0-4) % Baso % (Auto) 0.3 (0-2) % Lymph # (Auto) 0.9 L (1.2-4.9) X10*3/uL [place] # (Auto) 0.9 (0.1-1.2) X10*3/uL Eos # (Auto) 0.0 (0.0-0.4) X10*3/uL Baso # (Auto) 0.0 (0.0-0.2) X10*3/uL Abs Immat Gran (auto) 0.03 (0.00-0.03) X10*3/uL Absolute Neuts (auto) 5.7 (2.0-8.3) x10*3/uL Absolute Nucleated RBC 0.000 (0.0-0.012) X10*3/uL Nucleated RBC % (auto) 0.0 (0.0-0.2) /100WBC Sodium 138 (135-145) mmol/L Potassium 4.5 (3.3-5.1) mmol/L Chloride 105 (96-108) mmol/L Carbon Dioxide 24 (22-29) mmol/L Anion Gap 14 (12-20) BUN 13 (9-16) mg/dL Creatinine 1.06 (0.5-1.4) mg/dL Estim Creat Clear Calc 107.4 Estimated GFR > 60 Random Glucose 94 (60-115) mg/dL Calcium 8.8 D (8.4-10.2) mg/dL Influenza Type A (PCR) NEGATIVE (Negative) Influenza Type B (PCR) NEGATIVE (Negative) RSV RNA Qual (PCR) NEGATIVE (Negative) SARS-CoV-2 RNA (RT-PCR) POSITIVE A (Negative) <Mario Mathews MD - Last Filed: 07/28/22 11:59> Attestation Attending Attestation: I reviewed METAL GRADER/PA/Resident note, assessment and plan. I agree with the documentation, assessment and plan unless otherwise stated. I reviewed METAL GRADER/PA/Resident note, assessment and plan. I agree with the documentation, assessment and plan unless otherwise stated. <Mario Mathews MD - Last Filed: 07/28/22 11:59> Discharge Plan Discharge Clinical Impression: COVID-19 <JUAN JSOE Bobo - Last Filed: 07/24/22 09:05> Patient Disposition: Home, Self-Care <JUAN JOSE Bobo - Last Filed: 07/24/22 09:05> Instructions: COVID-19 (Coronavirus Disease 2019) (ED) <JUAN JOSE Bobo - Last Filed: 07/24/22 09:05> Additional Instructions: Follow up with your primary care provider. Return to the emergency department immediately if your symptoms worsen or if you develop any dizziness, shortness of breath, difficulty breathing, chest pain, blurry vision, loss of vision, nausea, vomiting, abdominal pain, fever, chills, back pain, or any other complaints. <JUAN JOSE Bobo - Last Filed: 07/24/22 09:05> Prescriptions: No Action epinephrine 0.3 mg/0.3 mL syringe 0.3 mg IM Q10M PRN (Reason: anaphylaxis) Qty: 1 1RF Rx Instructions: for 2 doses prednisone 50 mg tablet 50 mg PO DAILY Qty: 1 0RF diphenhydramine HCl [Benadryl] 25 mg capsule 25 mg PO Q6H PRN (Reason: allergic reaction) Qty: 7 0RF dicyclomine 20 mg tablet 20 mg PO QID PRN (Reason: abdominal pain) Qty: 20 0RF prednisone 20 mg tablet 20 mg PO BID Qty: 6 0RF ibuprofen 600 mg tablet 600 mg PO Q8H PRN (Reason: fever or pain) Qty: 20 0RF prednisone 20 mg tablet 40 mg PO DAILY Qty: 10 0RF ondansetron 4 mg tablet,disintegrating 4 mg PO Q6H PRN (Reason: nausea and vomiting) Qty: 10 0RF loperamide 2 mg capsule 2 mg PO Q6H PRN (Reason: loose stool) Qty: 10 0RF <JUAN JOSE Boob - Last Filed: 07/24/22 09:05> Referrals: [facility] [place] Group] (Call to establish and follow up with a primary care provider. If you already have a primary care provider, please follow up with them. ) [facility] [place] [facility] [Provider Group] (Call to establish and follow up with a primary care provider. If you already have a primary care provider, please follow up with them. ) [facility] [place] [Provider Group] (Call to establish and follow up with a primary care provider. If you already have a primary care provider, please follow up with them. ) <JUAN JOSE Bobo - Last Filed: 07/24/22 09:05> Stand Alone Forms: Work/School Release <JUAN JOSE Bobo - Last Filed: 07/24/22 09:05> Interventions: ED Discharge Assessment Last Done: 07/24/22 09:02 <JUAN JOSE Bobo - Last Filed: 07/24/22 09:05> Discharge Date/Time: 07/24/22 09:02 <JUAN JOSE Bobo - Last Filed: 07/24/22 09:05> Print Language: Welsh <JUAN JOSE Bobo - Last Filed: 07/24/22 09:05>
[2022-07-24 08:46] VITALS: BP 118/64; PULSE 85; RESP 16; TEMP 37.1
[2022-07-24] MEDS: Ibuprofen 600 MG TABLET PO (08:46)
[2022-07-24 08:49] VITALS: BP 118/64; PULSE 85; RESP 16; TEMP 37.1; O2SAT 98
== END 2022-07-24 09:02 | disposition home or self-care (01) ==
PROVIDERS: Emergency Provider Emergency Medicine
DX: U07.1 COVID-19 (principal); J02.9 Acute pharyngitis, unspecified
CPT/HCPCS: 0241U; 36415; 80048; 85025; 99283

== ENCOUNTER 2022-08-12 03:00 | Emergency (ER) | payer OTHER, SELFPAY ==
--- NOTE | ~2022-08-12 | XR_ITS ---
EXAMINATION: XR CHEST CLINICAL INFORMATION: Cough, fever, early pneumonia COMPARISON: None TECHNIQUE: Frontal view of the chest was obtained. FINDINGS: The lungs are clear with no focal consolidation. No evidence of pneumothorax, pulmonary edema, or pleural effusions. The cardiomediastinal silhouette is unremarkable. No acute osseous findings. XR/XR chest 1V IMPRESSION: No acute cardiopulmonary findings.
[2022-08-12 03:28] VITALS: BP 156/89; PULSE 113; RESP 18; TEMP 38.2; O2SAT 100; BMI 27.3
[2022-08-12 03:56] LABS: Basophils Percent Auto 0.2 % (0-2); Eosinophils Percent Auto 0.2 % (0-4); Hematocrit 47.7 % (42.0-52.0); Hemoglobin 15.9 g/dl (14.0-18.0); Imm Gran Abs Auto 0.04 X10*3/uL (0.00-0.03); Imm Gran Pct Auto 0.3 % (0.0-0.4); Lymphocytes Absolute Auto 0.9 X10*3/uL (1.2-4.9); Lymphocytes Percent Auto 7.2 % (20-40); MANUAL DIFF FLAG NO; Mean Corpuscular HGB Conc 33.3 g/dl (31.0-36.0); Mean Corpuscular Hemoglobin 28.1 pg (27.0-33.0); Mean Corpuscular Volume 84.3 fL (80.0-98.0); Mean Platelet Volume 9.1 fL (9.4-12.4); Neutrophils Absolute Auto 10.1 x10*3/uL (2.0-8.3); Neutrophils Percent Auto 84.1 % (45-73); Platelet Count 210 X10*3/uL (160-400); Red Blood Count 5.66 X10*6/uL (4.60-5.80); Red Cell Distribution Width 12.5 % (11.0-16.0); White Blood Count 12.1 X10*3/uL (4.8-10.8)
--- NOTE | 2022-08-12 04:04 | ED_ITS ---
HPI - General Adult General Chief complaint: General Medical Stated complaint: Headache, fever Time Seen by Provider: 08/12/22 03:33 Source: patient Mode of arrival: ambulatory Limitations: no limitations History of Present Illness HPI narrative: Patient just had COVID on 07/24/2022 was doing good since last evening patient been congested body aches headache fever with occasional cough on arrival temperature was 103 degrees no chills no chest pain no abdominal pain no nausea no vomiting no rash no other family member sick Related Data Previous Rx's Medication Instructions Recorded diphenhydramine HCl 25 mg capsule 25 mg PO Q6H PRN allergic reaction 10/11/20 (Benadryl) #7 caps epinephrine 0.3 mg/0.3 mL 0.3 mg (0.3 mL) IM Q10M PRN 10/11/20 injection syringe anaphylaxis #1 ea prednisone 50 mg tablet 50 mg PO DAILY #1 tab 10/11/20 prednisone 20 mg tablet 20 mg PO BID #6 tabs 08/06/21 ibuprofen 600 mg tablet 600 mg PO Q8H PRN fever or pain 06/06/22 #20 tabs prednisone 20 mg tablet 40 mg PO DAILY #10 tabs 06/09/22 loperamide 2 mg capsule 2 mg PO Q6H PRN loose stool #10 06/17/22 caps ondansetron 4 mg disintegrating 4 mg PO Q6H PRN nausea and 06/17/22 tablet vomiting #10 tabs dicyclomine 20 mg tablet 20 mg PO QID PRN abdominal pain 06/21/22 #20 tabs benzonatate 200 mg capsule 200 mg PO TID PRN cough #30 caps 08/12/22 ibuprofen 600 mg tablet 600 mg PO Q6H PRN fever or pain 08/12/22 #30 tabs Allergies Allergy/AdvReac Type Severity Reaction Status Date / Time No Known Allergies Allergy Verified 06/20/22 21:06 [No Known Allergies*] Review of Systems Review of Systems: Yes all other systems are reviewed and are negative [facility] Past Medical History Medical History No known health problems Social History Social History Alcohol intake: never Advance Directives: No Advance Directives Information Provided: Yes Physical Exam ED Vital Signs: Vital Signs - 24 hr 08/12/22 03:28 08/12/22 04:10 08/12/22 05:11 Temperature 100.8 F H 103 F H 99.9 F Pulse Rate 113 H 121 H Respiratory Rate 18 16 Blood Pressure 156/89 H 136/82 Pulse Oximetry 100 100 Oxygen Delivery Method Room Air Room Air BMI result Body Mass Index 27.3 Appearance: Alert. Oriented X3. No acute distress. Eyes: No pallor no icterus ENT: Pharynx normal. Oral Mucosa moist Neck: Normal inspection. Neck supple. CVS: Normal heart rate and rhythm. Pulses normal. Respiratory: No respiratory distress. Equal air entry bilateral, no wheezing/rales/rhonchi Abdomen: Soft and nontender. Bowel sounds are present, no mass palpable, no CVA tenderness Skin: Skin warm and dry. Normal skin color. Normal skin turgor. Extremities: No lower extremity edema. No calf tenderness Neuro: Oriented X 3. No motor deficit. Medications Administered Discontinued Medications Generic Name Dose Route Start Last Admin Trade Name Freq PRN Reason Stop Dose Admin Acetaminophen 650 mg 08/12/22 04:10 08/12/22 04:17 Acetaminophen 325 Mg Tablet PO 08/12/22 04:11 650 mg ONCE ONE Administration Sodium Chloride 1,000 mls @ 999 mls/hr 08/12/22 04:10 08/12/22 05:06 Ns IV 08/12/22 05:10 Infused .Q1H1M ONE Infusion Ketorolac Tromethamine 30 mg 08/12/22 04:10 08/12/22 04:16 Ketorolac Tromethamine 30 Mg/Ml Vial IVPUSH 08/12/22 04:11 30 mg ONCE ONE Administration Medical Decision Making Medical Decision Making [facility] Narrative: Patient workup is negative feeling much better after Tylenol/Motrin likely viral syndrome will discharge patient home advised to have supportive treatment and follow-up with PCP if not better chest x-ray negative for infiltrate Lab Data [facility] Lab Attestation statement: I reviewed the patient's lab results. 08/12/22 03:35 08/12/22 03:35 Labs: Lab Results 08/12/22 08/12/22 08/12/22 Range/Units 03:35 03:35 03:35 WBC 12.1 H (4.8-10.8) X10*3/uL RBC 5.66 (4.60-5.80) X10*6/uL Hgb 15.9 (14.0-18.0) g/dl Hct 47.7 (42.0-52.0) % MCV 84.3 (80.0-98.0) fL MCH 28.1 (27.0-33.0) pg MCHC 33.3 (31.0-36.0) g/dl RDW 12.5 (11.0-16.0) % Plt Count 210 (160-400) X10*3/uL MPV 9.1 L (9.4-12.4) fL Immature Gran % (Auto) 0.3 (0.0-0.4) % Neut % (Auto) 84.1 H (45-73) % Lymph % (Auto) 7.2 L (20-40) % [place] % (Auto) 8.0 (2-11) % Eos % (Auto) 0.2 (0-4) % Baso % (Auto) 0.2 (0-2) % Lymph # (Auto) 0.9 L (1.2-4.9) X10*3/uL [place] # (Auto) 1.0 (0.1-1.2) X10*3/uL Eos # (Auto) 0.0 (0.0-0.4) X10*3/uL Baso # (Auto) 0.0 (0.0-0.2) X10*3/uL Abs Immat Gran (auto) 0.04 H (0.00-0.03) X10*3/uL Absolute Neuts (auto) 10.1 H (2.0-8.3) x10*3/uL Absolute Nucleated RBC 0.000 (0.0-0.012) X10*3/uL Nucleated RBC % (auto) 0.0 (0.0-0.2) /100WBC Sodium 138 (135-145) mmol/L Potassium 4.8 (3.3-5.1) mmol/L Chloride 102 (96-108) mmol/L Carbon Dioxide 27 (22-29) mmol/L Anion Gap 14 (12-20) BUN 15 (9-16) mg/dL Creatinine 1.07 (0.5-1.4) mg/dL Estim Creat Clear Calc 105.5 Estimated GFR > 60 Random Glucose 96 (60-115) mg/dL Calcium 9.3 (8.4-10.2) mg/dL Urine Color Urine Appearance Urine pH (5.0-9.0) Ur Specific [place] (1.005-1.025) Urine Protein (Neg-Trace) mg/dL Urine Glucose (UA) (Negative) mg/dL Urine Ketones (Negative) mg/dL Urine Blood (Negative) Urine Nitrite (Negative) Ur Leukocyte Esterase (Negative) Urine RBC (0-2) /HPF Urine WBC (0-5) /HPF Ur Squamous Epith Cells (0-2) /HPF Urine Bacteria (None Seen) Hyaline Casts (0-2) /LPF Influenza Type A (PCR) NEGATIVE (Negative) Influenza Type B (PCR) NEGATIVE (Negative) RSV RNA Qual (PCR) NEGATIVE (Negative) SARS-CoV-2 RNA (RT-PCR) NEGATIVE (Negative) 08/12/22 Range/Units 04:32 WBC (4.8-10.8) X10*3/uL RBC (4.60-5.80) X10*6/uL Hgb (14.0-18.0) g/dl Hct (42.0-52.0) % MCV (80.0-98.0) fL MCH (27.0-33.0) pg MCHC (31.0-36.0) g/dl RDW (11.0-16.0) % Plt Count (160-400) X10*3/uL MPV (9.4-12.4) fL Immature Gran % (Auto) (0.0-0.4) % Neut % (Auto) (45-73) % Lymph % (Auto) (20-40) % [place] % (Auto) (2-11) % Eos % (Auto) (0-4) % Baso % (Auto) (0-2) % Lymph # (Auto) (1.2-4.9) X10*3/uL [place] # (Auto) (0.1-1.2) X10*3/uL Eos # (Auto) (0.0-0.4) X10*3/uL Baso # (Auto) (0.0-0.2) X10*3/uL Abs Immat Gran (auto) (0.00-0.03) X10*3/uL Absolute Neuts (auto) (2.0-8.3) x10*3/uL Absolute Nucleated RBC (0.0-0.012) X10*3/uL Nucleated RBC % (auto) (0.0-0.2) /100WBC Sodium (135-145) mmol/L Potassium (3.3-5.1) mmol/L Chloride (96-108) mmol/L Carbon Dioxide (22-29) mmol/L Anion Gap (12-20) BUN (9-16) mg/dL Creatinine (0.5-1.4) mg/dL Estim Creat Clear Calc Estimated GFR Random Glucose (60-115) mg/dL Calcium (8.4-10.2) mg/dL Urine Color Yellow Urine Appearance Clear Urine pH 7.0 (5.0-9.0) Ur Specific [place] >= 1.030 H (1.005-1.025) Urine Protein Negative (Neg-Trace) mg/dL Urine Glucose (UA) Negative (Negative) mg/dL Urine Ketones Trace (Negative) mg/dL Urine Blood Trace H (Negative) Urine Nitrite Negative (Negative) Ur Leukocyte Esterase Negative (Negative) Urine RBC 6-10 H (0-2) /HPF Urine WBC 0-5 (0-5) /HPF Ur Squamous Epith Cells 0-2 (0-2) /HPF Urine Bacteria None Seen (None Seen) Hyaline Casts 0-2 (0-2) /LPF Influenza Type A (PCR) (Negative) Influenza Type B (PCR) (Negative) RSV RNA Qual (PCR) (Negative) SARS-CoV-2 RNA (RT-PCR) (Negative) Discharge Plan Discharge Clinical Impression: Viral URI Patient Disposition: Home, Self-Care Instructions: Upper Respiratory Infection (ED) Additional Instructions: Drink plenty of fluids Tylenol/Motrin for fever Tessalon for cough as needed Report to the ER if not better Prescriptions: New benzonatate 200 mg capsule 200 mg PO TID PRN (Reason: cough) Qty: 30 0RF ibuprofen 600 mg tablet 600 mg PO Q6H PRN (Reason: fever or pain) Qty: 30 0RF No Action epinephrine 0.3 mg/0.3 mL syringe 0.3 mg IM Q10M PRN (Reason: anaphylaxis) Qty: 1 1RF Rx Instructions: for 2 doses prednisone 50 mg tablet 50 mg PO DAILY Qty: 1 0RF diphenhydramine HCl [Benadryl] 25 mg capsule 25 mg PO Q6H PRN (Reason: allergic reaction) Qty: 7 0RF dicyclomine 20 mg tablet 20 mg PO QID PRN (Reason: abdominal pain) Qty: 20 0RF prednisone 20 mg tablet 20 mg PO BID Qty: 6 0RF ibuprofen 600 mg tablet 600 mg PO Q8H PRN (Reason: fever or pain) Qty: 20 0RF prednisone 20 mg tablet 40 mg PO DAILY Qty: 10 0RF ondansetron 4 mg tablet,disintegrating 4 mg PO Q6H PRN (Reason: nausea and vomiting) Qty: 10 0RF loperamide 2 mg capsule 2 mg PO Q6H PRN (Reason: loose stool) Qty: 10 0RF Stand Alone Forms: Work/School Release Interventions: ED Discharge Assessment Last Done: 08/12/22 06:25 Discharge Date/Time: 08/12/22 06:26
[2022-08-12 04:10] VITALS: BP 136/82; PULSE 121; RESP 16; TEMP 39.4; O2SAT 100
[2022-08-12] MEDS: 0.9 % Sodium Chloride 1,000 ML 999 ML IV (04:12)
[2022-08-12] MEDS: Ketorolac Tromethamine 30 MG/ML VIAL IVPUSH (04:16)
[2022-08-12] MEDS: Acetaminophen 325 MG TABLET 650 MG PO (04:17)
[2022-08-12 04:20] LABS: Influenza A PCR NEGATIVE (Negative); Influenza B PCR NEGATIVE (Negative); Resp Syncy Virus RNA Qual PCR NEGATIVE (Negative); SARS COV2 PCR INHOUSE NEGATIVE (Negative)
[2022-08-12 04:25] LABS: Anion Gap 14 (12-20); Blood Urea Nitrogen 15 mg/dL (9-16); Calcium 9.3 mg/dL (8.4-10.2); Carbon Dioxide 27 mmol/L (22-29); Chloride 102 mmol/L (96-108); Creatinine Clr Calc Pharmacy 105.5; Estimated Glomerular Filt Rate > 60; Glucose Random 96 mg/dL (60-115); Potassium 4.8 mmol/L (3.3-5.1); Sodium 138 mmol/L (135-145)
[2022-08-12 04:38] LABS: Appearance Urine Clear; Color Urine Yellow; Glucose Urine UA Negative (Negative); Leukocyte Esterase Urine Negative (Negative); Nitrite Urine Negative (Negative); Specific Gravity - Urine >= 1.030 (1.005-1.025); UMIC TRIGGER UACC YES; Urine Blood Trace (Negative); Urine Ketones Trace mg/dL (Negative); Urine Protein Negative (Neg-Trace)
[2022-08-12 04:43] LABS: Bacteria Urine None Seen (None Seen); Hyaline Casts Urine 0-2 /LPF (0-2); Squamous Epithelial Cell Urine 0-2 /HPF (0-2); WBC Urine 0-5 /HPF (0-5)
[2022-08-12 05:11] VITALS: TEMP 37.7
== END 2022-08-12 06:26 | disposition home or self-care (01) ==
PROVIDERS: Emergency Provider Internal Medicine; PCP Internal Medicine
DX: J06.9 Acute upper respiratory infection, unspecified (principal); R50.9 Fever, unspecified; R51.9 Headache, unspecified; Z20.822 Contact with and (suspected) exposure to COVID-19; Z20.828 Contact with and (suspected) exposure to other viral communicable diseases
CPT/HCPCS: 0241U; 36415; 71045; 80048; 81001; 85025; 96361; 96374; 99284; J1885

== ENCOUNTER 2022-08-13 03:00 | Emergency (ER) | payer OTHER, SELFPAY ==
[2022-08-13 03:24] VITALS: BP 121/74; PULSE 132; RESP 22; TEMP 40.3; O2SAT 97; BMI 27.3
[2022-08-13 03:29] VITALS: TEMP 39.3
--- NOTE | 2022-08-13 03:45 | PC.NURSE ---
pt resting on stretcher at this time, febrile and tachycardic. DARIA Garcia placing IV line at this time as well as obtaining lab work
--- NOTE | 2022-08-13 03:56 | ED_ITS ---
HPI - URI/Sore Throat General Chief Complaint: Fever Stated Complaint: throat pain, hard time breathing Time Seen by Provider: 08/13/22 03:56 Source: patient Mode of arrival: ambulatory Limitations: no limitations History of Present Illness HPI Narrative: Patient's history of COVID-19 07/24 was seen here yesterday for cold symptoms with fever today he comes as has sore throat which is getting worse when patient was 9 yesterday was no significant with him but now patient difficulty swallowing and is more painful had a fever of 104.6 Related Data Previous Rx's Medication Instructions Recorded diphenhydramine HCl 25 mg capsule 25 mg PO Q6H PRN allergic reaction 10/11/20 (Benadryl) #7 caps epinephrine 0.3 mg/0.3 mL 0.3 mg (0.3 mL) IM Q10M PRN 10/11/20 injection syringe anaphylaxis #1 ea prednisone 50 mg tablet 50 mg PO DAILY #1 tab 10/11/20 prednisone 20 mg tablet 20 mg PO BID #6 tabs 08/06/21 ibuprofen 600 mg tablet 600 mg PO Q8H PRN fever or pain 06/06/22 #20 tabs prednisone 20 mg tablet 40 mg PO DAILY #10 tabs 06/09/22 loperamide 2 mg capsule 2 mg PO Q6H PRN loose stool #10 06/17/22 caps ondansetron 4 mg disintegrating 4 mg PO Q6H PRN nausea and 06/17/22 tablet vomiting #10 tabs dicyclomine 20 mg tablet 20 mg PO QID PRN abdominal pain 06/21/22 #20 tabs benzonatate 200 mg capsule 200 mg PO TID PRN cough #30 caps 08/12/22 ibuprofen 600 mg tablet 600 mg PO Q6H PRN fever or pain 08/12/22 #30 tabs amoxicillin 875 mg-potassium 1 tab PO BID #20 tabs 08/13/22 clavulanate 125 mg tablet ibuprofen 600 mg tablet 600 mg PO Q6H PRN fever or pain 08/13/22 #30 tabs Allergies Allergy/AdvReac Type Severity Reaction Status Date / Time No Known Allergies Allergy Verified 08/13/22 03:29 [No Known Allergies*] Review of Systems Review of Systems: Yes all other systems are reviewed and are negative PMFSH Past Medical History Medical History No known health problems Social History Social History Alcohol intake: never Advance Directives: No Advance Directives Information Provided: Yes Physical Exam Vital Signs: Vital Signs: Last Vital Signs Temp 102.8 F H 08/13/22 03:29 Pulse 132 H 08/13/22 03:24 Resp 22 H 08/13/22 03:24 BP 121/74 08/13/22 03:24 Pulse Ox 97 08/13/22 03:24 O2 Del Method 08/13/22 03:24 BMI result Body Mass Index 27.3 Appearance: Alert. Oriented X3. No acute distress. Febrile Eyes: No pallor or icterus ENT: Diffuse erythema with exudate bilateral Oral Mucosa moist Neck: Normal inspection. Neck supple. No stridor CVS: Tachycardia Pulses normal. Respiratory: No respiratory distress. Equal air entry bilateral, no wheezing/rales/rhonchi Abdomen: Soft and nontender. Bowel sounds are present, Skin: Skin warm and dry. Normal skin color. Normal skin turgor. Extremities: No lower extremity edema. No calf tenderness Neuro: Oriented X 3. Medications Administered Discontinued Medications Generic Name Dose Route Start Last Admin Trade Name Freq PRN Reason Stop Dose Admin Acetaminophen 975 mg 08/13/22 03:53 08/13/22 04:02 Acetaminophen 325 Mg Tablet PO 08/13/22 03:54 975 mg ONCE ONE Administration Dexamethasone Sodium Phosphate 10 mg 08/13/22 04:08 08/13/22 04:23 Dexamethasone Sod Phosphate 10 Mg/Ml Vial IVPUSH 08/13/22 04:09 10 mg ONCE ONE Administration Sodium Chloride 1,000 mls @ 999 mls/hr 08/13/22 04:05 08/13/22 05:38 Ns IV 08/13/22 05:05 Infused .Q1H1M ONE Infusion Ceftriaxone Sodium 1 gm/ 50 mls @ 100 mls/hr 08/13/22 04:05 08/13/22 05:09 Sodium Chloride IV 08/13/22 04:34 Infused ONCE ONE Infusion Ketorolac Tromethamine 30 mg 08/13/22 04:05 08/13/22 04:23 Ketorolac Tromethamine 30 Mg/Ml Vial IVPUSH 08/13/22 04:06 30 mg ONCE ONE Administration Medical Decision Making Medical Decision Making MDM Narrative: Patient's strep throat positive was given IV fluids and IV Rocephin discharged on Augmentin Lab Data [facility] Lab Attestation statement: I reviewed the patient's lab results. 08/13/22 03:45 08/13/22 03:45 Labs: Lab Results 08/13/22 08/13/22 08/13/22 Range/Units 03:45 03:45 03:45 WBC 17.2 H (4.8-10.8) X10*3/uL RBC 5.40 (4.60-5.80) X10*6/uL Hgb 15.2 (14.0-18.0) g/dl Hct 45.8 (42.0-52.0) % MCV 84.8 (80.0-98.0) fL MCH 28.1 (27.0-33.0) pg MCHC 33.2 (31.0-36.0) g/dl RDW 12.7 (11.0-16.0) % Plt Count 194 (160-400) X10*3/uL MPV 9.1 L (9.4-12.4) fL Immature Gran % (Auto) 0.5 H (0.0-0.4) % Neut % (Auto) 83.8 H (45-73) % Lymph % (Auto) 5.8 L (20-40) % [place] % (Auto) 9.0 (2-11) % Eos % (Auto) 0.7 (0-4) % Baso % (Auto) 0.2 (0-2) % Lymph # (Auto) 1.0 L (1.2-4.9) X10*3/uL [place] # (Auto) 1.5 H (0.1-1.2) X10*3/uL Eos # (Auto) 0.1 (0.0-0.4) X10*3/uL Baso # (Auto) 0.0 (0.0-0.2) X10*3/uL Abs Immat Gran (auto) 0.09 H (0.00-0.03) X10*3/uL Absolute Neuts (auto) 14.4 H (2.0-8.3) x10*3/uL Absolute Nucleated RBC 0.000 (0.0-0.012) X10*3/uL Nucleated RBC % (auto) 0.0 (0.0-0.2) /100WBC Smear Tech's Comments VERIFIED Sodium 138 (135-145) mmol/L Potassium 3.7 D (3.3-5.1) mmol/L Chloride 104 (96-108) mmol/L Carbon Dioxide 26 (22-29) mmol/L Anion Gap 12 (12-20) BUN 16 (9-16) mg/dL Creatinine 1.23 (0.5-1.4) mg/dL Estim Creat Clear Calc 91.8 Estimated GFR > 60 Random Glucose 117 H (60-115) mg/dL Lactic Acid (0.5-2.0) mmol/L Calcium 8.9 (8.4-10.2) mg/dL Total Bilirubin 0.8 (0.0-1.0) mg/dL Direct Bilirubin 0.3 (0.0-0.5) mg/dL AST 19 (5-37) U/L ALT 20 (0-40) U/L Alkaline Phosphatase 73 (39-117) U/L Total Protein 7.4 (6.5-8.0) g/dL Albumin 4.3 (3.5-5.0) g/dL Lipase 16 (8-78) U/L Urine Color Urine Appearance Urine pH (5.0-9.0) Ur Specific [place] (1.005-1.025) Urine Protein (Neg-Trace) mg/dL Urine Glucose (UA) (Negative) mg/dL Urine Ketones (Negative) mg/dL Urine Blood (Negative) Urine Nitrite (Negative) Ur Leukocyte Esterase (Negative) Urine RBC (0-2) /HPF Urine WBC (0-5) /HPF Ur Squamous Epith Cells (0-2) /HPF Urine Bacteria (None Seen) Hyaline Casts (0-2) /LPF S. pyogenes GrpA DONOVAN Positive A (Negative) 08/13/22 08/13/22 Range/Units 03:47 03:55 WBC (4.8-10.8) X10*3/uL RBC (4.60-5.80) X10*6/uL Hgb (14.0-18.0) g/dl Hct (42.0-52.0) % MCV (80.0-98.0) fL MCH (27.0-33.0) pg MCHC (31.0-36.0) g/dl RDW (11.0-16.0) % Plt Count (160-400) X10*3/uL MPV (9.4-12.4) fL Immature Gran % (Auto) (0.0-0.4) % Neut % (Auto) (45-73) % Lymph % (Auto) (20-40) % [place] % (Auto) (2-11) % Eos % (Auto) (0-4) % Baso % (Auto) (0-2) % Lymph # (Auto) (1.2-4.9) X10*3/uL [place] # (Auto) (0.1-1.2) X10*3/uL Eos # (Auto) (0.0-0.4) X10*3/uL Baso # (Auto) (0.0-0.2) X10*3/uL Abs Immat Gran (auto) (0.00-0.03) X10*3/uL Absolute Neuts (auto) (2.0-8.3) x10*3/uL Absolute Nucleated RBC (0.0-0.012) X10*3/uL Nucleated RBC % (auto) (0.0-0.2) /100WBC Smear Tech's Comments Sodium (135-145) mmol/L Potassium (3.3-5.1) mmol/L Chloride (96-108) mmol/L Carbon Dioxide (22-29) mmol/L Anion Gap (12-20) BUN (9-16) mg/dL Creatinine (0.5-1.4) mg/dL Estim Creat Clear Calc Estimated GFR Random Glucose (60-115) mg/dL Lactic Acid 1.3 (0.5-2.0) mmol/L Calcium (8.4-10.2) mg/dL Total Bilirubin (0.0-1.0) mg/dL Direct Bilirubin (0.0-0.5) mg/dL AST (5-37) U/L ALT (0-40) U/L Alkaline Phosphatase (39-117) U/L Total Protein (6.5-8.0) g/dL Albumin (3.5-5.0) g/dL Lipase (8-78) U/L Urine Color Dark Yellow Urine Appearance Clear Urine pH 6.0 (5.0-9.0) Ur Specific [place] >= 1.030 H (1.005-1.025) Urine Protein 100 (2+) H (Neg-Trace) mg/dL Urine Glucose (UA) Negative (Negative) mg/dL Urine Ketones 40 (Negative) mg/dL Urine Blood Large (3+) H (Negative) Urine Nitrite Negative (Negative) Ur Leukocyte Esterase Negative (Negative) Urine RBC >20 H (0-2) /HPF Urine WBC 0-5 (0-5) /HPF Ur Squamous Epith Cells 0-2 (0-2) /HPF Urine Bacteria None Seen (None Seen) Hyaline Casts 0-2 (0-2) /LPF S. pyogenes GrpA DONVOAN (Negative) Discharge Plan Discharge Clinical Impression: Acute streptococcal pharyngitis Patient Disposition: Home, Self-Care Instructions: Strep Throat (ED) Additional Instructions: Take antibiotic as prescribed Drink plenty of fluids Continue ibuprofen Prescriptions: New amoxicillin-pot clavulanate 875-125 mg tablet 1 tab PO BID Qty: 20 0RF ibuprofen 600 mg tablet 600 mg PO Q6H PRN (Reason: fever or pain) Qty: 30 0RF No Action epinephrine 0.3 mg/0.3 mL syringe 0.3 mg IM Q10M PRN (Reason: anaphylaxis) Qty: 1 1RF Rx Instructions: for 2 doses prednisone 50 mg tablet 50 mg PO DAILY Qty: 1 0RF diphenhydramine HCl [Benadryl] 25 mg capsule 25 mg PO Q6H PRN (Reason: allergic reaction) Qty: 7 0RF dicyclomine 20 mg tablet 20 mg PO QID PRN (Reason: abdominal pain) Qty: 20 0RF prednisone 20 mg tablet 20 mg PO BID Qty: 6 0RF ibuprofen 600 mg tablet 600 mg PO Q8H PRN (Reason: fever or pain) Qty: 20 0RF prednisone 20 mg tablet 40 mg PO DAILY Qty: 10 0RF ondansetron 4 mg tablet,disintegrating 4 mg PO Q6H PRN (Reason: nausea and vomiting) Qty: 10 0RF loperamide 2 mg capsule 2 mg PO Q6H PRN (Reason: loose stool) Qty: 10 0RF benzonatate 200 mg capsule 200 mg PO TID PRN (Reason: cough) Qty: 30 0RF ibuprofen 600 mg tablet 600 mg PO Q6H PRN (Reason: fever or pain) Qty: 30 0RF Stand Alone Forms: Work/School Release Interventions: ED Discharge Assessment Last Done: 08/13/22 05:46 Discharge Date/Time: 08/13/22 05:48
[2022-08-13 03:58] LABS: Basophils Percent Auto 0.2 % (0-2); Eosinophils Absolute Auto 0.1 X10*3/uL (0.0-0.4); Eosinophils Percent Auto 0.7 % (0-4); Hematocrit 45.8 % (42.0-52.0); Hemoglobin 15.2 g/dl (14.0-18.0); Imm Gran Abs Auto 0.09 X10*3/uL (0.00-0.03); Imm Gran Pct Auto 0.5 % (0.0-0.4); Lymphocytes Percent Auto 5.8 % (20-40); MANUAL DIFF FLAG SCAN; Mean Corpuscular HGB Conc 33.2 g/dl (31.0-36.0); Mean Corpuscular Hemoglobin 28.1 pg (27.0-33.0); Mean Corpuscular Volume 84.8 fL (80.0-98.0); Mean Platelet Volume 9.1 fL (9.4-12.4); Monocytes Absolute Auto 1.5 X10*3/uL (0.1-1.2); Neutrophils Absolute Auto 14.4 x10*3/uL (2.0-8.3); Neutrophils Percent Auto 83.8 % (45-73); Platelet Count 194 X10*3/uL (160-400); Red Cell Distribution Width 12.7 % (11.0-16.0); SCAN SMEAR FLAG 1; White Blood Count 17.2 X10*3/uL (4.8-10.8)
[2022-08-13] MEDS: Acetaminophen 325 MG TABLET 975 MG PO (04:02)
[2022-08-13 04:03] LABS: IDNOW Serial# 6674DD1D; Strep A Nucleic Acid Positive (Negative)
[2022-08-13 04:08] LABS: Appearance Urine Clear; Color Urine Dark Yellow; Glucose Urine UA Negative (Negative); Leukocyte Esterase Urine Negative (Negative); Nitrite Urine Negative (Negative); Specific Gravity - Urine >= 1.030 (1.005-1.025); UMIC TRIGGER UACC YES; Urine Blood Large (3+) (Negative); Urine Ketones 40 mg/dL (Negative); Urine Protein 100 (2+) mg/dL (Neg-Trace)
[2022-08-13 04:08] LABS: SLIDE REVIEW VERIFIED
[2022-08-13 04:10] LABS: Bacteria Urine None Seen (None Seen); Hyaline Casts Urine 0-2 /LPF (0-2); RBC Urine >20 /HPF (0-2); Squamous Epithelial Cell Urine 0-2 /HPF (0-2); WBC Urine 0-5 /HPF (0-5)
[2022-08-13 04:10] LABS: Lactic Acid 1.3 mmol/L (0.5-2.0)
[2022-08-13 04:15] LABS: Alanine Aminotransferase 20 U/L (0-40); Albumin Level 4.3 g/dL (3.5-5.0); Alkaline Phosphatase 73 U/L (39-117); Anion Gap 12 (12-20); Aspartate Amino Transferase 19 U/L (5-37); Bilirubin Direct 0.3 mg/dL (0.0-0.5); Bilirubin Total 0.8 mg/dL (0.0-1.0); Blood Urea Nitrogen 16 mg/dL (9-16); Calcium 8.9 mg/dL (8.4-10.2); Carbon Dioxide 26 mmol/L (22-29); Chloride 104 mmol/L (96-108); Creatinine Clr Calc Pharmacy 91.8; Estimated Glomerular Filt Rate > 60; Glucose Random 117 mg/dL (60-115); Lipase 16 U/L (8-78); Potassium 3.7 mmol/L (3.3-5.1); Sodium 138 mmol/L (135-145); Total Protein 7.4 g/dL (6.5-8.0)
[2022-08-13] MEDS: Ketorolac Tromethamine 30 MG/ML VIAL IVPUSH (04:23)
[2022-08-13] MEDS: dexAMETHasone sod phosphate 10 MG/ML VIAL IVPUSH (04:23)
[2022-08-13] MEDS: cefTRIAXone sodium 1 GM in 0.9 % Sodium Chloride 50 ML IV (04:23)
[2022-08-13] MEDS: 0.9 % Sodium Chloride 1,000 ML 999 ML IV (04:23)
== END 2022-08-13 05:48 | disposition home or self-care (01) ==
PROVIDERS: Emergency Provider Internal Medicine; PCP Internal Medicine
DX: J02.0 Streptococcal pharyngitis (principal); R50.9 Fever, unspecified; R00.0 Tachycardia, unspecified; Z79.899 Other long term (current) drug therapy
CPT/HCPCS: 36415; 80048; 80076; 81001; 83605; 83690; 85025; 87040; 87651; 96361; 96374; 96375; 99284; J0696; J1100; J1885

== ENCOUNTER 2022-09-17 05:14 | Emergency (ER) | payer OTHER, SELFPAY ==
--- NOTE | ~2022-09-17 | XR_ITS ---
EXAMINATION: XR CHEST CLINICAL INFORMATION: Short of breath COMPARISON: 08/12/2022 TECHNIQUE: 2 views of the chest were obtained. FINDINGS: The lungs are well expanded. There is no focal consolidation, edema, or effusion. No pneumothorax. The cardiomediastinal silhouette is within normal limits. No acute osseous abnormality. XR/XR chest 2V IMPRESSION: Clear lungs.
[2022-09-17 05:29] VITALS: BP 133/74; PULSE 122; RESP 20; TEMP 37.6; O2SAT 99; BMI 26.2
[2022-09-17 06:27] LABS: COVID-19 Test Negative (Negative); IDNOW Serial# 08D9AD1C
[2022-09-17 06:28] LABS: IDNOW Serial# BCCEAD1C; Influenza A Negative (Negative); Influenza B2 Negative (Negative)
[2022-09-17 06:30] LABS: Basophils Percent Auto 0.3 % (0-2); Eosinophils Percent Auto 0.1 % (0-4); Hematocrit 44.2 % (42.0-52.0); Hemoglobin 14.6 g/dl (14.0-18.0); Imm Gran Abs Auto 0.04 X10*3/uL (0.00-0.03); Imm Gran Pct Auto 0.4 % (0.0-0.4); Lymphocytes Absolute Auto 1.2 X10*3/uL (1.2-4.9); Mean Corpuscular Hemoglobin 28.3 pg (27.0-33.0); Mean Corpuscular Volume 85.7 fL (80.0-98.0); Mean Platelet Volume 9.2 fL (9.4-12.4); Monocytes Absolute Auto 1.1 X10*3/uL (0.1-1.2); Monocytes Percent Auto 9.6 % (2-11); Neutrophils Absolute Auto 8.8 x10*3/uL (2.0-8.3); Neutrophils Percent Auto 78.6 % (45-73); Red Blood Count 5.16 X10*6/uL (4.60-5.80); Red Cell Distribution Width 13.1 % (11.0-16.0)
[2022-09-17 06:31] LABS: Platelet Count 196 X10*3/uL (160-400); White Blood Count 11.2 X10*3/uL (4.8-10.8)
[2022-09-17 06:33] LABS: Alanine Aminotransferase 19 U/L (0-40); Albumin Level 4.3 g/dL (3.5-5.0); Alkaline Phosphatase 73 U/L (39-117); Anion Gap 14 (12-20); Aspartate Amino Transferase 24 U/L (5-37); Blood Urea Nitrogen 15 mg/dL (9-16); Calcium 8.9 mg/dL (8.4-10.2); Carbon Dioxide 25 mmol/L (22-29); Chloride 104 mmol/L (96-108); Creatinine Clr Calc Pharmacy 102.6; Estimated Glomerular Filt Rate > 60; Glucose Random 95 mg/dL (60-115); Potassium 3.8 mmol/L (3.3-5.1); Sodium 139 mmol/L (135-145); Total Protein 7.2 g/dL (6.5-8.0)
--- NOTE | 2022-09-17 06:54 | ED_ITS ---
HPI - General Adult General Chief complaint: General Medical Stated complaint: Flu Like Time Seen by Provider: 09/17/22 06:49 Source: patient Mode of arrival: ambulatory Limitations: no limitations History of Present Illness HPI narrative: yesterday had headache and he has been taking tylenol than had sore throat, nausea, rhinorrhea, myalgias, diarrhea. Onset (ago): day(s) Severity: mild Relieving factors: none Associated symptoms: cough, fever/chills, headaches, loss of appetite, malaise and nausea/vomiting Related Data Previous Rx's Medication Instructions Recorded diphenhydramine HCl 25 mg capsule 25 mg PO Q6H PRN allergic reaction 10/11/20 (Benadryl) #7 caps epinephrine 0.3 mg/0.3 mL 0.3 mg (0.3 mL) IM Q10M PRN 10/11/20 injection syringe anaphylaxis #1 ea prednisone 50 mg tablet 50 mg PO DAILY #1 tab 10/11/20 prednisone 20 mg tablet 20 mg PO BID #6 tabs 08/06/21 ibuprofen 600 mg tablet 600 mg PO Q8H PRN fever or pain 06/06/22 #20 tabs prednisone 20 mg tablet 40 mg PO DAILY #10 tabs 06/09/22 loperamide 2 mg capsule 2 mg PO Q6H PRN loose stool #10 06/17/22 caps ondansetron 4 mg disintegrating 4 mg PO Q6H PRN nausea and 06/17/22 tablet vomiting #10 tabs dicyclomine 20 mg tablet 20 mg PO QID PRN abdominal pain 06/21/22 #20 tabs benzonatate 200 mg capsule 200 mg PO TID PRN cough #30 caps 08/12/22 ibuprofen 600 mg tablet 600 mg PO Q6H PRN fever or pain 08/12/22 #30 tabs amoxicillin 875 mg-potassium 1 tab PO BID #20 tabs 08/13/22 clavulanate 125 mg tablet ibuprofen 600 mg tablet 600 mg PO Q6H PRN fever or pain 08/13/22 #30 tabs amoxicillin 875 mg-potassium 1 tab PO BID #20 tabs 09/17/22 clavulanate 125 mg tablet Allergies Allergy/AdvReac Type Severity Reaction Status Date / Time No Known Allergies Allergy Verified 09/17/22 05:33 [No Known Allergies*] Review of Systems Review of Systems: Yes all other systems are reviewed and are negative Constitutional: Constitutional: Reports body ache(s), Reports chills and Reports malaise ENT: Reports nasal congestion and Reports nasal discharge [facility] Past Medical History Medical History No known health problems Social History Social History Alcohol intake: never Smoked in Last 30 Days: No Use of substances other than those prescribed or required for medical reasons: No Advance Directives: No Advance Directives Information Provided: No Physical Exam ED Vital Signs: Vital Signs - 24 hr 09/17/22 05:29 09/17/22 07:10 Temperature 99.6 F 98.9 F Pulse Rate 122 H 109 H Respiratory Rate 20 16 Blood Pressure 133/74 114/68 Pulse Oximetry 99 97 Oxygen Delivery Method Room Air Room Air BMI result Body Mass Index 26.2 Const General: healthy appearing Nutritional Appearance: average body habitus Orientation/consciousness: oriented to person and patient oriented x3 Limitations: no limitations HENMT Other: red pharynx with exudate Head: Yes normal to inspection Ears: external ears normal General nose exam: Normal external nose present Throat: Yes posterior oropharynx normal Eyes General: appearance normal, both eyes and all related structures Neck Neck: Yes normal visual inspection Chest Chest palpation & inspection: normal inspection of the chest Resp Auscultation: clear to auscultation bilaterally Cardio Jugular venous distension: no JVD Rate: regular rate Rhythm: regular rhythm Heart sounds: S1 normal heart sound present and S2 normal heart sound present GI Inspection: Yes normal to inspection Palpation (GI): Soft to palpation, nontender and No hepatosplenomegaly present Auscultation: normal bowel sounds General: Yes no CVA tenderness Back/Spine/Pelvis Back: no CVA tenderness Skin General skin exam: no rashes or lesions noted Neuro General: oriented to person and patient oriented x3 Cranial nerves: Yes CN's II-XII intact bilaterally Motor exam (neuro): 5/5 motor strength present throughout Extrem General: Yes normal to inspection Psych Appearance: grossly normal Course Reevaluation(s) Reevaluation #1: patient with strep will dc on augmentin Time: 08:33 Medications Administered Discontinued Medications Generic Name Dose Route Start Last Admin Trade Name Freq PRN Reason Stop Dose Admin Dexamethasone Sodium Phosphate 10 mg 09/17/22 06:59 09/17/22 08:06 Dexamethasone Sod Phosphate 10 Mg/Ml Vial IM 09/17/22 07:00 10 mg ONCE ONE Administration Ibuprofen 800 mg 09/17/22 06:57 09/17/22 08:06 Ibuprofen 800 Mg Tablet PO 09/17/22 06:58 800 mg ONCE ONE Administration Ondansetron HCl 4 mg 09/17/22 06:59 09/17/22 08:05 Ondansetron Odt 4 Mg Tab.Rapdis TRANSLINGU 09/17/22 07:00 4 mg ONCE ONE Administration Medical Decision Making Differential Diagnosis Differential Diagnoses: The differential diagnosis associated with the presentation includes (viral illness, covid, influenza, strep were all considered) Lab Data MDM Lab Attestation statement: I reviewed the patient's lab results. 09/17/22 06:07 09/17/22 06:07 Labs: Lab Results 09/17/22 09/17/22 09/17/22 Range/Units 06:07 06:07 06:07 WBC 11.2 H (4.8-10.8) X10*3/uL RBC 5.16 (4.60-5.80) X10*6/uL Hgb 14.6 (14.0-18.0) g/dl Hct 44.2 (42.0-52.0) % MCV 85.7 (80.0-98.0) fL MCH 28.3 (27.0-33.0) pg MCHC 33.0 (31.0-36.0) g/dl RDW 13.1 (11.0-16.0) % Plt Count 196 (160-400) X10*3/uL MPV 9.2 L (9.4-12.4) fL Immature Gran % (Auto) 0.4 (0.0-0.4) % Neut % (Auto) 78.6 H (45-73) % Lymph % (Auto) 11.0 L (20-40) % [place] % (Auto) 9.6 (2-11) % Eos % (Auto) 0.1 (0-4) % Baso % (Auto) 0.3 (0-2) % Lymph # (Auto) 1.2 (1.2-4.9) X10*3/uL [place] # (Auto) 1.1 (0.1-1.2) X10*3/uL Eos # (Auto) 0.0 (0.0-0.4) X10*3/uL Baso # (Auto) 0.0 (0.0-0.2) X10*3/uL Abs Immat Gran (auto) 0.04 H (0.00-0.03) X10*3/uL Absolute Neuts (auto) 8.8 H (2.0-8.3) x10*3/uL Absolute Nucleated RBC 0.000 (0.0-0.012) X10*3/uL Nucleated RBC % (auto) 0.0 (0.0-0.2) /100WBC Sodium 139 (135-145) mmol/L Potassium 3.8 (3.3-5.1) mmol/L Chloride 104 (96-108) mmol/L Carbon Dioxide 25 (22-29) mmol/L Anion Gap 14 (12-20) BUN 15 (9-16) mg/dL Creatinine 1.10 (0.5-1.4) mg/dL Estim Creat Clear Calc 102.6 Estimated GFR > 60 Random Glucose 95 (60-115) mg/dL Calcium 8.9 (8.4-10.2) mg/dL Total Bilirubin 1.0 (0.0-1.0) mg/dL AST 24 (5-37) U/L ALT 19 (0-40) U/L Alkaline Phosphatase 73 (39-117) U/L Total Protein 7.2 (6.5-8.0) g/dL Albumin 4.3 (3.5-5.0) g/dL Urine Color Urine Appearance Urine pH (5.0-9.0) Ur Specific [place] (1.005-1.025) Urine Protein (Neg-Trace) mg/dL Urine Glucose (UA) (Negative) mg/dL Urine Ketones (Negative) mg/dL Urine Blood (Negative) Urine Nitrite (Negative) Ur Leukocyte Esterase (Negative) Urine RBC (0-2) /HPF Urine WBC (0-5) /HPF Ur Squamous Epith Cells (0-2) /HPF Urine Bacteria (None Seen) Hyaline Casts (0-2) /LPF COVID-19 (SILVINO) Negative (Negative) COVID-19 Clin Com See Note Influenza Type A (DONOVAN) (Negative) Influenza Type B (DONOVAN) (Negative) Influenza A & B Note S. pyogenes GrpA DONOVAN (Negative) 09/17/22 09/17/22 09/17/22 Range/Units 06:07 06:46 07:13 WBC (4.8-10.8) X10*3/uL RBC (4.60-5.80) X10*6/uL Hgb (14.0-18.0) g/dl Hct (42.0-52.0) % MCV (80.0-98.0) fL MCH (27.0-33.0) pg MCHC (31.0-36.0) g/dl RDW (11.0-16.0) % Plt Count (160-400) X10*3/uL MPV (9.4-12.4) fL Immature Gran % (Auto) (0.0-0.4) % Neut % (Auto) (45-73) % Lymph % (Auto) (20-40) % [place] % (Auto) (2-11) % Eos % (Auto) (0-4) % Baso % (Auto) (0-2) % Lymph # (Auto) (1.2-4.9) X10*3/uL [place] # (Auto) (0.1-1.2) X10*3/uL Eos # (Auto) (0.0-0.4) X10*3/uL Baso # (Auto) (0.0-0.2) X10*3/uL Abs Immat Gran (auto) (0.00-0.03) X10*3/uL Absolute Neuts (auto) (2.0-8.3) x10*3/uL Absolute Nucleated RBC (0.0-0.012) X10*3/uL Nucleated RBC % (auto) (0.0-0.2) /100WBC Sodium (135-145) mmol/L Potassium (3.3-5.1) mmol/L Chloride (96-108) mmol/L Carbon Dioxide (22-29) mmol/L Anion Gap (12-20) BUN (9-16) mg/dL Creatinine (0.5-1.4) mg/dL Estim Creat Clear Calc Estimated GFR Random Glucose (60-115) mg/dL Calcium (8.4-10.2) mg/dL Total Bilirubin (0.0-1.0) mg/dL AST (5-37) U/L ALT (0-40) U/L Alkaline Phosphatase (39-117) U/L Total Protein (6.5-8.0) g/dL Albumin (3.5-5.0) g/dL Urine Color Yellow Urine Appearance Clear Urine pH 6.0 (5.0-9.0) Ur Specific [place] >= 1.030 H (1.005-1.025) Urine Protein 30 (1+) H (Neg-Trace) mg/dL Urine Glucose (UA) Negative (Negative) mg/dL Urine Ketones >=160 (Negative) mg/dL Urine Blood Moderate (2+) H (Negative) Urine Nitrite Negative (Negative) Ur Leukocyte Esterase Negative (Negative) Urine RBC 6-10 H (0-2) /HPF Urine WBC 0-5 (0-5) /HPF Ur Squamous Epith Cells 0-2 (0-2) /HPF Urine Bacteria None Seen (None Seen) Hyaline Casts 0-2 (0-2) /LPF COVID-19 (SILVINO) (Negative) COVID-19 Clin Com Influenza Type A (DONOVAN) Negative (Negative) Influenza Type B (DONOVAN) Negative (Negative) Influenza A & B Note See Note S. pyogenes GrpA DONOVAN Positive A (Negative) Independent Interpretation I performed an independent interpretation of an: Plain X-Ray (CXR no infiltrate) Discharge Plan Discharge Clinical Impression: Strep pharyngitis Patient Disposition: Home, Self-Care Instructions: Strep Throat (ED) Prescriptions: New amoxicillin-pot clavulanate 875-125 mg tablet 1 tab PO BID Qty: 20 0RF No Action epinephrine 0.3 mg/0.3 mL syringe 0.3 mg IM Q10M PRN (Reason: anaphylaxis) Qty: 1 1RF Rx Instructions: for 2 doses prednisone 50 mg tablet 50 mg PO DAILY Qty: 1 0RF diphenhydramine HCl [Benadryl] 25 mg capsule 25 mg PO Q6H PRN (Reason: allergic reaction) Qty: 7 0RF dicyclomine 20 mg tablet 20 mg PO QID PRN (Reason: abdominal pain) Qty: 20 0RF amoxicillin-pot clavulanate 875-125 mg tablet 1 tab PO BID Qty: 20 0RF ibuprofen 600 mg tablet 600 mg PO Q6H PRN (Reason: fever or pain) Qty: 30 0RF prednisone 20 mg tablet 20 mg PO BID Qty: 6 0RF ibuprofen 600 mg tablet 600 mg PO Q8H PRN (Reason: fever or pain) Qty: 20 0RF prednisone 20 mg tablet 40 mg PO DAILY Qty: 10 0RF ondansetron 4 mg tablet,disintegrating 4 mg PO Q6H PRN (Reason: nausea and vomiting) Qty: 10 0RF loperamide 2 mg capsule 2 mg PO Q6H PRN (Reason: loose stool) Qty: 10 0RF benzonatate 200 mg capsule 200 mg PO TID PRN (Reason: cough) Qty: 30 0RF ibuprofen 600 mg tablet 600 mg PO Q6H PRN (Reason: fever or pain) Qty: 30 0RF Stand Alone Forms: Work/School Release Interventions: ED Discharge Assessment Last Done: 09/17/22 08:48 Discharge Date/Time: 09/17/22 08:48
[2022-09-17 07:01] LABS: Appearance Urine Clear; Color Urine Yellow; Glucose Urine UA Negative (Negative); Leukocyte Esterase Urine Negative (Negative); Nitrite Urine Negative (Negative); Specific Gravity - Urine >= 1.030 (1.005-1.025); UMIC TRIGGER UACC YES; Urine Blood Moderate (2+) (Negative); Urine Ketones >=160 mg/dL (Negative); Urine Protein 30 (1+) mg/dL (Neg-Trace)
[2022-09-17 07:03] LABS: Bacteria Urine None Seen (None Seen); Hyaline Casts Urine 0-2 /LPF (0-2); Squamous Epithelial Cell Urine 0-2 /HPF (0-2); WBC Urine 0-5 /HPF (0-5)
[2022-09-17 07:10] VITALS: BP 114/68; PULSE 109; RESP 16; TEMP 37.2; O2SAT 97
[2022-09-17 07:26] LABS: IDNOW Serial# 08D9AD1C; Strep A Nucleic Acid Positive (Negative)
[2022-09-17] MEDS: Ondansetron ODT 4 MG TAB.RAPDIS TRANSLINGU (08:05)
[2022-09-17] MEDS: Ibuprofen 800 MG TABLET PO (08:06)
[2022-09-17] MEDS: dexAMETHasone sod phosphate 10 MG/ML VIAL IM (08:06)
== END 2022-09-17 08:48 | disposition home or self-care (01) ==
PROVIDERS: Emergency Provider Emergency Medicine; PCP Internal Medicine
DX: R51.9 Headache, unspecified (principal); M79.10 Myalgia, unspecified site; R19.7 Diarrhea, unspecified; R05.9 Cough, unspecified; R06.02 Shortness of breath; Z20.822 Contact with and (suspected) exposure to COVID-19; Z20.828 Contact with and (suspected) exposure to other viral communicable diseases; Z79.899 Other long term (current) drug therapy
CPT/HCPCS: 36415; 71046; 80053; 81001; 85025; 87502; 87635; 87651; 96372; 99284; J1100

== ENCOUNTER 2025-01-18 04:48 | Emergency (ER) | payer OTHER, SELFPAY ==
[2025-01-18 04:52] VITALS: BP 122/80; PULSE 104; RESP 16; TEMP 37.5; BMI 28.1
[2025-01-18 05:18] VITALS: BP 122/80; PULSE 104; RESP 16; TEMP 37.5; O2SAT 98
[2025-01-18 05:35] LABS: Appearance Urine Clear; Glucose Urine UA Negative (Negative); PH 6.0 (5.0-9.0); Specific Gravity - Urine 1.025 (1.005-1.025); UMIC TRIGGER UACC YES
[2025-01-18 05:46] LABS: IDNOW Serial# 58CA691E; Strep A Nucleic Acid Negative (Negative)
[2025-01-18 05:50] LABS: COVID-19 Test Negative (Negative); IDNOW Serial# 6674DD1D
[2025-01-18 06:01] LABS: IDNOW Serial# 55D5AD1C; Influenza B2 Negative (Negative)
--- NOTE | 2025-01-18 06:56 | ED_ITS ---
HPI - URI/Sore Throat General Chief Complaint: Upper Respiratory Symptoms Stated Complaint: resp symptoms Time Seen by Provider: 01/18/25 06:30 Source: patient Mode of arrival: ambulatory Limitations: language barrier History of Present Illness ED Provider: Dr. Elin Foley HPI Narrative: 29-year-old male with history of asthma presenting with cough, shortness of breath, subjective fever, body aches and a sore throat after being exposed to someone at his job that was diagnosed with COVID-19. Symptoms have been ongoing for the last 3 days or so. Cough is productive of clear sputum. Has been taking Tylenol without real relief of his symptoms. No recent travel. Related Data Previous Rx's ?Medication ?Instructions ?Recorded diphenhydramine HCl 25 mg capsule 25 mg PO Q6H PRN all ergic reaction 10/11/20 (Benadryl) #7 caps epinephrine 0.3 mg/0.3 mL 0.3 mg (0.3 mL) IM Q10M PRN 10/11/20 injection syringe anaphylaxis #1 ea prednisone 50 mg tablet 50 mg PO DAILY #1 tab prednisone 20 mg tablet 20 mg PO BID #6 tabs 2 ibuprofen 600 mg tablet 600 mg PO Q8H PRN fever or p ain 06/06/22 #20 tabs prednisone 20 mg tablet 40 mg (2 x 20 mg) PO DAILY # 10 tabs 06/09/22 loperamide 2 mg capsule 2 mg PO Q6H PRN loose stool #10 06/17/22 caps ondansetron 4 mg disintegrating 4 mg PO Q6H PRN nausea and 06/17/22 tablet vomiting #10 tabs dicyclomine 20 mg tablet 20 mg PO QID PRN abdominal pain 06/21/22 #20 tabs benzonatate 200 mg capsule 200 mg PO TID PRN cough #30 caps 08/12/22 ibuprofen 600 mg tablet 600 mg PO Q6H PRN fever or p ain 08/12/22 #30 tabs amoxicillin 875 mg-potassium 1 tab PO BID #20 tabs clavulanate 125 mg tablet ibuprofen 600 mg tablet 600 mg PO Q6H PRN fever or p ain 08/13/22 #30 tabs amoxicillin 875 mg-potassium 1 tab PO BID #20 tabs clavulanate 125 mg tablet ibuprofen 600 mg tablet 600 mg PO Q8H PRN fever or p ain 01/18/25 #30 tabs Allergies Allergy/AdvReac Type Severity Reaction Status Date / Time No Known Allergies (No Known Allergy Verified 01/18/25 04:56 Allergies*) Review of Systems Review of Systems: as per HPI, full review of systems performed and negative but for the above mentioned pertinent positives and negatives. [facility] Past Medical History Attestation statement: The following information was validated with the patient. [facility] Narrative: asthma Medical History No known health problems Social History Social History Alcohol intake: never Smoked in Last 30 Days: No Use of substances other than those prescribed or required for medical reasons: No Advance Directives: No Do you have a plan to hurt others: No Plan Physical Exam Exam: Exam: GENERAL: Ill-appearing, mild respiratory distress. SKIN: Normal skin color for ethnicity, warm, dry, no rashes noted. HEENT:? Normocephalic, atraumatic, no stridor, EOMI, posterior oropharynx is erythematous without exudates, TMs clear. NECK: Soft, supple, full ROM, midline structures nontender, no step-offs, no deformities, no lymphadenopathy. CHEST: Heart regular tachycardia, symmetric chest rise and fall. PULMONARY: Diffuse wheezes throughout, tachypnea, limited air movement bilaterally, mild respiratory distress. ABDOMINAL: Soft, nontender, quiet bowel sounds in all quadrants. : Deferred. MUSCULOSKELETAL: Normal tone, full range of motion, no deformities, no peripheral edema. NEURO: Alert and oriented to person, CN II through XII intact, no focal neurologic deficits.? PSYCHIATRIC: Anxious affect, appropriate demeanor. Vital Signs: Vital Signs: Last Vital Signs Temp 100.0 F 01/18/25 07:19 Pulse 101 H 01/18/25 07:19 Resp 18 01/18/25 07:19 BP 125/80 01/18/25 07:19 Pulse Ox 97 01/18/25 07:19 O2 Del Method Room Air 01/18/25 07:19 BMI result Body Mass Index 28.1 Medications Administered Discontinued Medications Generic Name Dose Route Start Last Admin Trade Name Jose Juan PRN Reason Stop Dose Admin Ibuprofen 600 mg 01/18/25 06:30 01/18/25 06:36 Ibuprofen 600 Mg Tablet PO 01/18/25 06:31 600 mg ONCE ONE Administration Lidocaine HCl 15 ml 01/18/25 07:15 01/18/25 07:18 Lidocaine Hcl Viscous 2 % 15 Ml Solution MUCOUS MEM 01/18/25 07:16 15 ml ONCE ONE Administration Medical Decision Making Medical Decision Making [facility] Narrative: Patient presents today with flu-like symptoms. Differential diagnosis includes influenza, coronavirus, pneumonia, upper respiratory infection, among others. Patient having some slight dyspnea and wheezing from his asthma. COVID swab is negative today. Discussed possiblity of false negatives. Instructed to stay home until his fevers resolve for more than 24 hours. I have discussed medication and other home therapies that will help the patient and hav e discussed strict return precautions. Instructed that symptoms may worsen and the patient might need re-evaluation or even hospitalization in the future, but did not show signs of this at the time of discharge. Differential Diagnosis Differential Diagnoses: The differential diagnosis associated with the presentation includes (as above) Admission/Observation Consideration of admission/observation: Escalation of care including admission/observation considered Lab Data [facility] Lab Attestation statement: I reviewed the patient's lab results. Labs: Lab Results 01/18/25 01/18/25 Range/Units 05:22 05:27 Urine Color Yellow Urine Appearance Clear Urine pH 6.0 (5.0-9.0) Ur Specific [place] 1.025 (1.005-1.025) Urine Protein Negative (Neg-Trace) mg/dL Urine Glucose (UA) Negative (Negative) mg/dL Urine Ketones Trace (Negative) mg/dL Urine Blood Small (1+) H (Negative) Urine Nitrite Negative (Negative) Ur Leukocyte Esterase Negative (Negative) Urine RBC 6-10 H (0-2) /HPF Urine WBC 0-5 (0-5) /HPF Ur Squamous Epith Cells 0-2 (0-2) /HPF Urine Bacteria None Seen (None Seen) Hyaline Casts 0-2 (0-2) /LPF COVID-19 (SILVINO) Negative (Negative) COVID-19 Clin Com See Note Influenza Type A (DONOVAN) Negative (Negative) Influenza Type B (DONOVAN) Negative (Negative) Influenza A & B Note See Note S. pyogenes GrpA DONOVAN Negative (Negative) Chronic Conditions Patient?s care impacted by: Other (asthma) Discharge Plan Discharge Clinical Impression: Acute viral syndrome, Upper respiratory infection Patient Disposition: Home, Self-Care Instructions: Viral Syndrome (ED) Prescriptions: New ibuprofen 600 mg tablet 600 mg PO Q8H PRN (Reason: fever or pain) Qty: 30 0RF No Action epinephrine 0.3 mg/0.3 mL syringe 0.3 mg IM Q10M PRN (Reason: anaphylaxis) Qty: 1 1RF Rx Instructions: for 2 doses prednisone 50 mg tablet 50 mg PO DAILY Qty: 1 0RF diphenhydramine HCl [Benadryl] 25 mg capsule 25 mg PO Q6H PRN (Reason: allergic reaction) Qty: 7 0RF dicyclomine 20 mg tablet 20 mg PO QID PRN (Reason: abdominal pain) Qty: 20 0RF amoxicillin-pot clavulanate 875-125 mg tablet 1 tab PO BID Qty: 20 0RF ibuprofen 600 mg tablet 600 mg PO Q6H PRN (Reason: fever or pain) Qty: 30 0RF prednisone 20 mg tablet 20 mg PO BID Qty: 6 0RF ibuprofen 600 mg tablet 600 mg PO Q8H PRN (Reason: fever or pain) Qty: 20 0RF prednisone 20 mg tablet 40 mg PO DAILY Qty: 10 0RF ondansetron 4 mg tablet,disintegrating 4 mg PO Q6H PRN (Reason: nausea and vomiting) Qty: 10 0RF loperamide 2 mg capsule 2 mg PO Q6H PRN (Reason: loose stool) Qty: 10 0RF benzonatate 200 mg capsule 200 mg PO TID PRN (Reason: cough) Qty: 30 0RF ibuprofen 600 mg tablet 600 mg PO Q6H PRN (Reason: fever or pain) Qty: 30 0RF amoxicillin-pot clavulanate 875-125 mg tablet 1 tab PO BID Qty: 20 0RF Stand Alone Forms: Work/School Release Interventions: ED Discharge Assessment Last Done: 01/18/25 07:19 Discharge Date/Time: 01/18/25 07:19 Print Language: [place]
[2025-01-18 07:08] VITALS: BP 125/80; PULSE 101; RESP 18; TEMP 37.8; O2SAT 97
[2025-01-18] MEDS: Lidocaine HCl Viscous 2 % 15 ML SOLUTION MUCOUS MEM (07:18)
[2025-01-18 07:19] VITALS: BP 125/80; PULSE 101; RESP 18; TEMP 37.8; O2SAT 97
== END 2025-01-18 07:19 | disposition home or self-care (01) ==
PROVIDERS: Emergency Provider Emergency Medicine; PCP Internal Medicine
DX: J06.9 Acute upper respiratory infection, unspecified (principal); B34.9 Viral infection, unspecified; R06.02 Shortness of breath; J02.9 Acute pharyngitis, unspecified; Z03.818 Encounter for observation for suspected exposure to other biological agents ruled out
CPT/HCPCS: 81001; 87502; 87635; 87651; 99283; 99284

== ENCOUNTER 2025-02-02 21:33 | Emergency (ER) | payer OTHER, SELFPAY ==
--- NOTE | ~2025-02-02 | US_ITS ---
CLINICAL HISTORY: r o testicular torsion L testicle pain US Scrotum with Doppler Comparison: None provided Findings: Right testicle normal echotexture, 4.6 x 2.8 x 3.6 cm. Left testicle normal echotexture, 4.5 x 2.6 x 3.0 cm. Normal color flow and arterial/venous spectral tracing of both testicles. Epididymides are unremarkable. No hydroceles. Mild left varicocele. Small fat containing left inguinal hernia. IMPRESSION: No acute scrotal findings. No evidence of torsion. Small fat containing left inguinal hernia. This document has been electronically signed by: Tamica Joseph MD on 02/03/2025 00:15:24
[2025-02-02 22:19] VITALS: BP 149/84; PULSE 74; RESP 18; TEMP 36.8; O2SAT 97; BMI 27.7
--- NOTE | 2025-02-02 22:34 | ED.MALEGU ---
HPI - Male Genitourinary General Chief complaint: Urogenital-Male Stated complaint: groin pain Time Seen by Provider: 02/02/25 22:33 Source: patient Mode of arrival: ambulatory Limitations: language barrier (Land Commissioner services utilized.) History of Present Illness ED Provider: Renny INGRAM HPI Narrative: The patient is a 29-year-old male presenting to the ED reporting he often lifts heavy items at work, yesterday was lifting approximately a 50 lb box when he felt sudden pain in his left groin radiating to his left testicle with tenderness in the left testicle. The patient denies associated fever/chills, nausea, vomiting, urethral discharge, penile lesions, scrotal erythema, scrotal swelling, or recent trauma. The patient denies history of similar previous symptoms. The patient denies associated dysuria, hematuria, or other urinary symptoms. Related Data Previous Rx's ?Medication ?Instructions ?Recorded diphenhydramine HCl 25 mg capsule 25 mg PO Q6H PRN allergic reaction 10/11/20 (Benadryl) #7 caps epinephrine 0.3 mg/0.3 mL 0.3 mg (0.3 mL) IM Q10M PRN 10/11/20 injection syringe anaphylaxis #1 ea prednisone 50 mg tablet 50 mg PO DAILY #1 tab 10/11/20 prednisone 20 mg tablet 20 mg PO BID #6 tabs 08/06/21 ibuprofen 600 mg tablet 600 mg PO Q8H PRN fever or pain 06/06/22 #20 tabs prednisone 20 mg tablet 40 mg (2 x 20 mg) PO DAILY #10 tabs 06/09/22 loperamide 2 mg capsule 2 mg PO Q6H PRN loose stool #10 06/17/22 caps ondansetron 4 mg disintegrating 4 mg PO Q6H PRN nausea and 06/17/22 tablet vomiting #10 tabs dicyclomine 20 mg tablet 20 mg PO QID PRN abdominal pain 06/21/22 #20 tabs benzonatate 200 mg capsule 200 mg PO TID PRN cough #30 caps 08/12/22 ibuprofen 600 mg tablet 600 mg PO Q6H PRN fever or pain 08/12/22 #30 tabs amoxicillin 875 mg-potassium 1 tab PO BID #20 tabs 08/13/22 clavulanate 125 mg tablet ibuprofen 600 mg tablet 600 mg PO Q6H PRN fever or pain 08/13/22 #30 tabs amoxicillin 875 mg-potassium 1 tab PO BID #20 tabs 09/17/22 clavulanate 125 mg tablet ibuprofen 600 mg tablet 600 mg PO Q8H PRN fever or pain 01/18/25 #30 tabs acetaminophen 500 mg capsule 1,000 mg (2 x 500 mg) PO .q8 PRN 02/03/25 fever or pain #30 caps ibuprofen 600 mg tablet 600 mg PO Q8H PRN fever or pain 02/03/25 #30 tabs Allergies Allergy/AdvReac Type Severity Reaction Status Date / Time No Known Allergies (No Known Allergy Verified 02/02/25 22:26 Allergies*) Review of Systems Review of Systems: Yes all other systems are reviewed and are negative PMFSH Past Medical History Medical History No known health problems Social History Social History Alcohol intake: never Smoked in Last 30 Days: No Use of substances other than those prescribed or required for medical reasons: No Advance Directives: No Advance Directives Information Provided: Yes Do you have a plan to hurt others: No Plan Physical Exam Vital Signs: Vital Signs: Last Vital Signs Temp 98.2 F 02/02/25 22:19 Pulse 74 02/02/25 22:19 Resp 18 02/02/25 22:19 BP 149/84 H 02/02/25 22:19 Pulse Ox 97 02/02/25 22:19 O2 Del Method Room Air 02/02/25 22:19 BMI result Body Mass Index 27.7 CONSTITUTIONAL: The patient appears non-toxic, well nourished and in no acute distress. Vital signs as documented. HEAD: Atraumatic, normocephalic. EYES: EOMs grossly intact, pupils equal, conjunctiva clear, no exudate. ENT: Nares patent, no discharge. Airway patent, no audible stridor, visible mucosa is pink and moist without noted lesions. NECK: Trachea is midline, no obvious masses or gross abnormalities. CHEST: Symmetric movement, normal appearance. LUNGS: LS present and CTAB, no w/r/r. Non-labored work of breathing. CARDIAC: Regular Rhythm, S1/S2 appreciated, no murmurs, rubs or gallops. ABDOMEN: Abdomen soft and non-tender x4 quadrants, no palpable masses or organomegaly. : Mild left-sided inguinal tenderness, negative mass/bulge, no palpable hernia. There is tenderness to palpation of the left testicle without associated scrotal erythema, warmth, or obvious swelling. There is no penile lesions or urethral discharge. EXTREMITIES: Normal tone, moves all extremities spontaneously without reported pain. No obvious acute injury or deformity noted. NEURO: Alert and oriented x3, CN II-XII appear grossly intact. Cerebellar Functioning grossly intact. No obvious sensory or motor deficits. Speech clear and appropriate. PSYCH: normal affect, appropriate eye contact, fluid speech, with appropriate response to questioning. No reported suicidality or homicidality. SKIN: Warm, dry, color appropriate, normal turgor. No rashes noted. Medical Decision Making Medical Decision Making MDM Narrative: 11:15 PM 02/02/2025 (Isa INGRAM): Patient is a 29-year-old male presenting to the ED for evaluation of left inguinal and testicular pain immediately following lifting a 50 lb box at work. Patient's exam does not show any irreducible hernia, there is tenderness with palpation of the left testicle, no overlying erythema, no other acute findings. The patient's presentation is consistent with likely non incarcerated hernia versus hydrocele. Patient was sent for a scrotal ultrasound which is pending interpretation. 1:11 AM 02/03/2025 (Isa INGRAM): Patient's ultrasound shows no acute scrotal findings, there was a left inguinal hernia with fat, no evidence of incarceration. Patient will be discharged with pain control and instructions to follow up outpatient with PCP/surgeon. Radiology Impression Discussion of test interpretation with radiology: I have reviewed the radiologist's reading. Radiologist Impression: CLINICAL HISTORY: r o testicular torsion L testicle pain US Scrotum with Doppler Comparison: None provided Findings: Right testicle normal echotexture, 4.6 x 2.8 x 3.6 cm. Left testicle normal echotexture, 4.5 x 2.6 x 3.0 cm. Normal color flow and arterial/venous spectral tracing of both testicles. Epididymides are unremarkable. No hydroceles. Mild left varicocele. Small fat containing left inguinal hernia. IMPRESSION: No acute scrotal findings. No evidence of torsion. Small fat containing left inguinal hernia. This document has been electronically signed by: Tamica Joseph MD on 02/03/2025 00:15:24 Tests considered The following testing was considered but not selected: UA Prescription Management I considered prescription management with: Pain Medication Discharge Plan Discharge Clinical Impression: Inguinal hernia Patient Disposition: Home, Self-Care Instructions: Inguinal Hernia (ED) Additional Instructions: Thank you for choosing [facility]'s Emergency Department for your care today. Your ultrasound today thankfully shows no evidence of testicular torsion, spermatocele, hydrocele, or infection. Your ultrasound did show evidence of a left inguinal hernia without any evidence of bowel obstruction or other emergent process. At this time there is no indication for admission to the hospital or continued ED observation, and it is safe to discharge you home. Your left inguinal hernia is likely the source of your pain. This will require nonemergent outpatient follow up with your primary care provider and a surgeon to consider elective repair. You should take alternating (staggered) doses of ibuprofen 600mg and Tylenol 1000mg every 4 hours as needed for any additional pain. Please rest the injured area, and apply ice for 20 minutes every hour. Please call the surgical office listed below to schedule an appointment for evaluation. Please also follow up with your primary care physician for re-evaluation, additional management of your symptoms, and continued preventative care. If you do not have a primary care physician, please call the [facility] at [phone] to establish a new primary care physician. While waiting to establish your new primary care physician, you can call our Walk[facility]in [facility] at [phone] for non-emergency needs. Please return to the emergency department if you develop a severe or sudden change in your symptoms, a large mass in your inguinal region which becomes severely tender, discolored, or is not easily pushed back in, a fever over 100.4 that does not improve with Tylenol or Ibuprofen, recurrent vomiting, or any other new or worsening symptoms or concerns. Prescriptions: New ibuprofen 600 mg tablet 600 mg PO Q8H PRN (Reason: fever or pain) Qty: 30 0RF acetaminophen 500 mg capsule 1,000 mg PO .q8 PRN (Reason: fever or pain) Qty: 30 0RF No Action epinephrine 0.3 mg/0.3 mL syringe 0.3 mg IM Q10M PRN (Reason: anaphylaxis) Qty: 1 1RF Rx Instructions: for 2 doses prednisone 50 mg tablet 50 mg PO DAILY Qty: 1 0RF diphenhydramine HCl [Benadryl] 25 mg capsule 25 mg PO Q6H PRN (Reason: allergic reaction) Qty: 7 0RF dicyclomine 20 mg tablet 20 mg PO QID PRN (Reason: abdominal pain) Qty: 20 0RF amoxicillin-pot clavulanate 875-125 mg tablet 1 tab PO BID Qty: 20 0RF ibuprofen 600 mg tablet 600 mg PO Q6H PRN (Reason: fever or pain) Qty: 30 0RF prednisone 20 mg tablet 20 mg PO BID Qty: 6 0RF ibuprofen 600 mg tablet 600 mg PO Q8H PRN (Reason: fever or pain) Qty: 20 0RF prednisone 20 mg tablet 40 mg PO DAILY Qty: 10 0RF ondansetron 4 mg tablet,disintegrating 4 mg PO Q6H PRN (Reason: nausea and vomiting) Qty: 10 0RF loperamide 2 mg capsule 2 mg PO Q6H PRN (Reason: loose stool) Qty: 10 0RF benzonatate 200 mg capsule 200 mg PO TID PRN (Reason: cough) Qty: 30 0RF ibuprofen 600 mg tablet 600 mg PO Q6H PRN (Reason: fever or pain) Qty: 30 0RF amoxicillin-pot clavulanate 875-125 mg tablet 1 tab PO BID Qty: 20 0RF ibuprofen 600 mg tablet 600 mg PO Q8H PRN (Reason: fever or pain) Qty: 30 0RF Referrals: Diomedes Perez MD [Primary Care Provider, Internal Medicine] Clinical Impression: Inguinal hernia Jamal Lakhani MD [Physician, General Surgery] Clinical Impression: Inguinal hernia Stand Alone Forms: Work/School Release Print Language: Senegalese
[2025-02-03 01:36] VITALS: BP 129/92; PULSE 78; RESP 16; TEMP 36.2; O2SAT 97
[2025-02-03 01:39] VITALS: BP 129/92; PULSE 78; RESP 16; TEMP 36.2; O2SAT 97
== END 2025-02-03 01:39 | disposition home or self-care (01) ==
PROVIDERS: Emergency Provider Emergency Medicine; PCP Internal Medicine
DX: K40.90 Unilateral inguinal hernia, without obstruction or gangrene, not specified as recurrent (principal); N50.812 Left testicular pain
CPT/HCPCS: 93975; 99284

== ENCOUNTER → 2025-02-02 22:34 | Outpatient (BNV) | payer OTHER, SELFPAY | PROVIDERS: Emergency Provider Emergency Medicine; PCP Internal Medicine; Visit Provider Radiology Diagnostic Radiology | DX: K40.90 Unilateral inguinal hernia, without obstruction or gangrene, not specified as recurrent (principal) | CPT/HCPCS: 93975 ==

== ENCOUNTER 2025-03-13 12:55 | Outpatient (AMB) | payer OTHER, SELFPAY ==
--- NOTE | 2025-03-13 13:02 | MHC.OFFVIS ---
Vital Signs 03/13/25 13:10 Height 5 ft 9 in Weight 193 lb BMI 28.5 BP 140/75 H Blood Pressure Location Lt brachial Position Sitting Pulse 71 Intake Visit Reasons: left inguinal hernia Intake Note: Patient is seen in office for ER follow up visit, following left inguinal hernia. Pt c/o: left groin pain, radiates to the left testicle, went to ED, does heavy lifting at work and might be the issue, denies n/v/d/c, no prior surgeries in the area ED/us:02/03/25 Unix Systems Administrator Required: Yes Unix Systems Administrator Services: Unix Systems Administrator Offered & Declined (Girlfriend to spike maker per pt request) Accompanied by: Family/Other Allergies No Known Allergies (No Known Allergies*) Allergy (Verified 03/13/25 13:09) Medication List - Last Reconciled 03/13/25 by Paulo Stout MD ibuprofen 600 mg PO Q8H PRN HPI Comments Details: 29-year-old male patient presenting for evaluation of a left inguinal hernia. He 1st noted the symptoms in the left groin several months ago and felt the pain radiating into the testicle. It started after lifting heavy boxes during the day. After several hours he began to note increased pain and swelling in the left groin. The pain seemed to also increase with walking for prolonged period of time. He was subsequently evaluated in the emergency department at which time an ultrasound was performed. This revealed a normal testicle however a fat containing left inguinal hernia was identified. He continues to note the pain despite being on light duty but denies nausea, vomiting, fever or chills. His bowels are normal as well. He denies a previous history of hernias or hernia surgery. [facility] Medical History No known health problems Social History Alcohol intake: never Patient Tobacco Use Status: Never used Tobacco Review of Systems Const All systems reviewed & are unremarkable except as noted in HPI and below Physical Exam Vital Signs: Last Vital Signs Pulse 71 03/13/25 13:10 BP 140/75 H 03/13/25 13:10 BMI result Body Mass Index 28.5 Const General: cooperative and no acute distress Nutritional Appearance: well nourished Orientation/consciousness: patient oriented x3 Limitations: no limitations HEENT Head: Yes normocephalic and Yes atraumatic Ears: hearing grossly normal bilaterally Resp Effort & Inspection: normal respiratory effort, no audible wheezes, no cough and no respiratory distress Cardio Jugular venous distension: no JVD GI Other: Soft, nondistended, tender in the left groin over the internal ring. Examination in the standing position with Valsalva maneuvers confirms a small reducible left inguinal hernia. No right inguinal hernia could be identified. Testes are descended and normal. Inspection: Yes normal to inspection Skin Other: Warm, dry, no rash Neuro General: patient oriented x3 Extrem General: Yes no clubbing, cyanosis or edema Assessment & Plan Assessment & Plan (1) Reducible left inguinal hernia: Code(s): K40.90 - Unilateral inguinal hernia, without obstruction or gangrene, not specified as recurrent Category: Medical Plan 29-year-old male patient presenting with a reducible left inguinal hernia which is symptomatic. I recommended repair of this left inguinal hernia with mesh since it is symptomatic and after discussion of the procedure, risks, and alternatives, he consents to the surgery. He will be scheduled as a short-stay surgery. Medications: Discontinued epinephrine for 2 doses Discontinued Reason: Patient Completed Course 0.3 mg (0.3 mL) IM Q10M PRN 1 ea 1RF anaphylaxis diphenhydramine HCl (Benadryl) Discontinued Reason: Patient Completed Course 25 mg PO Q6H PRN 7 caps 0RF allergic reaction prednisone Discontinued Reason: Patient Completed Course 50 mg PO DAILY 1 tab 0RF ibuprofen Discontinued Reason: Patient Completed Course 600 mg PO Q8H PRN 20 tabs 0RF fever or pain loperamide Discontinued Reason: Patient Completed Course 2 mg PO Q6H PRN 10 caps 0RF loose stool ondansetron Discontinued Reason: Patient Completed Course 4 mg PO Q6H PRN 10 tabs 0RF nausea and vomiting dicyclomine Discontinued Reason: Patient Completed Course 20 mg PO QID PRN 20 tabs 0RF abdominal pain ibuprofen Discontinued Reason: Patient Completed Course 600 mg PO Q6H PRN 30 tabs 0RF fever or pain prednisone Discontinued Reason: Patient Completed Course 20 mg PO BID 6 tabs 0RF prednisone Discontinued Reason: Patient Completed Course 40 mg (2 x 20 mg) PO DAILY 10 tabs 0RF benzonatate Discontinued Reason: Patient Completed Course 200 mg PO TID PRN 30 caps 0RF cough amoxicillin-pot clavulanate 875-125 mg Discontinued Reason: Patient Completed Course 1 tab PO BID 20 tabs 0RF ibuprofen Discontinued Reason: Patient Completed Course 600 mg PO Q6H PRN 30 tabs 0RF fever or pain acetaminophen Discontinued Reason: Patient Completed Course 1,000 mg (2 x 500 mg) PO .q8 PRN 30 caps 0RF fever or pain amoxicillin-pot clavulanate 875-125 mg Discontinued Reason: Patient Completed Course 1 tab PO BID 20 tabs 0RF ibuprofen Discontinued Reason: Patient Completed Course 600 mg PO Q8H PRN 30 tabs 0RF fever or pain Coding Level of Care Code New Pt Level 4 (78711) Diagnoses Reducible left inguinal hernia K40.90
[2025-03-13 13:10] VITALS: BP 140/75; PULSE 71; BMI 28.5
== END 2025-03-13 13:04 | disposition home or self-care (01) ==
LOC: HO.HGS 12:56
PROVIDERS: PCP Internal Medicine; Visit Provider Surgery
DX: K40.90 Unilateral inguinal hernia, without obstruction or gangrene, not specified as recurrent (principal)
CPT/HCPCS: 99204

== ENCOUNTER → 2025-03-13 12:55 | Outpatient (BNVA) | payer OTHER, SELFPAY | PROVIDERS: PCP Internal Medicine; Visit Provider Surgery | DX: K40.90 Unilateral inguinal hernia, without obstruction or gangrene, not specified as recurrent (principal) | CPT/HCPCS: 99202 ==

== ENCOUNTER 2025-03-22 08:32 | Day surgery (SDC) | payer OTHER, SELFPAY ==
--- OUTSIDE RECORDS SUMMARY | 2025-03-14 15:30 | XMS_ITS | Encounter Summary ---
Author Organization [facility] Address [address] [place] [address] Care Team Providers Care Child Development Consultant Name Role Phone Diomedes Perez MD Primary Care Provider Reason for Visit * Reason Comments Follow-up Encounter Details Date Type Department Care Team ([facility] st Contact Info) Description 03/14/2025 3:30 PM EDT Office Visit Adult Medicine [address] [phone] Diomedes Perez MD [address] [place] [phone] Inguinal hernia of left side without obstruction or gangrene (Primary Dx); Left inguinal pain Social History Tobacco Use Types Packs/Day Years Used Date Smoking Tobacco: Never Smokeless Tobacco: Never Tobacco Cessation:Counseling Given: Not Answered Sex and Gender Information Value Date Recorded Sex Assigned at Not on file Legal Sex Male 10:08 PM EST Gender Identity Not on file Sexual Orientation Not on file documented as of this encounter Last Filed Vital Signs Vital Sign Reading Time Taken Comments Blood Pressure 134/82 03/14/2025 3:37 PM EDT Pulse 80 03/14/2025 3:37 PM EDT Temperature 36.5 C (97.7 F) 03/14/2025 3:37 PM EDT Respiratory Rate 15 03/14/2025 3:37 PM EDT Oxygen Saturation - - Inhaled Oxygen Concentration - - Weight 82.1 kg (181 lb) 03/14/2025 3:37 PM EDT Height 170.2 cm (5' 7 ) 03/14/2025 3:37 PM EDT Body Mass Index 28.35 03/14/2025 3:37 PM EDT documented in this encounter Plan of Treatment Upcoming Encounters Date Type Department Care Team (Late st Contact Info) Description 07/10/2025 1:30 PM EST Office Visit Adult Medicine [address] [phone] Diomedes Perez MD [address] [place] [address] documented as of this encounter Visit Diagnoses Diagnosis Inguinal hernia of left side without obstruction or gangrene- Primary Left inguinal pain Abdominal pain, left lower quadrant documented in this encounter Care Teams Child Development Consultant Relationship Specialty Start Date End Date Diomedes Perez MD [address] [place] [address] PCP - General Internal Medicine 09/26/21 documented as of this encounter
--- OUTSIDE RECORDS SUMMARY | 2025-03-14 15:57 | XMS_ITS | Clinical Summary ---
Author Organization [facility] [address] [place] [address] [place] [phone] Phone Care Team Providers Care Office Director Name Role Phone Diomedes Perez MD Primary Care Provider Allergies No known active allergies Medications ibuprofen (ADVIL,MOTRIN) 600 mg tablet Take 1 tablet (600 mg total) by mouth every 8 (eight) hours if needed for moderate pain. for pain 90 tablet 02/07/2025 Active Active Problems Problem Noted Date Diagnosed Date Gastroesophageal reflux disease without esophagi tis 12/13/2021 Encounters Date Type Department Care Team Description 03/14/2025 3:30 PM EDT Office Visit Adult [address] [phone] Diomedes Perez MD Inguinal hernia of left side without obstruction or gangrene (Primary Dx); Left inguinal pain 02/07/2025 3:30 PM EDT Office Visit [address] [phone] Diomedes Perez MD Inguinal hernia of left side without obstruction or gangrene (Primary Dx); Left inguinal pain 02/07/2025 Telephone Adult [address] [phone] Diomedes Perez MD from Last 3 Months Social History Tobacco Use Types Packs/Day Years Used Date Smoking Tobacco: Never Smokeless Tobacco: Never Tobacco Cessation:Counseling Given: Not Answered Sex and Gender Information Value Date Recorded Sex Assigned at Not on file Legal Sex Male 10:08 PM EST Gender Identity Not on file Sexual Orientation Not on file Obstetrics History Last Filed Vital Signs Vital Sign Reading [...] Mass Index 28.35 03/14/2025 3:37 PM EDT Plan of Treatment Upcoming Encounters Date Type Department Care Team (Late st Contact Info) Description 07/10/2025 1:30 PM EST Office Visit Adult Medicine [address] [phone] Diomedes Perez MD [address] [place] [address] Health Maintenance Due Date Last Done Comments DTaP,Tdap,and Td Vaccines (1 - Tdap) 2016 Hepatitis B Vaccines (1 of 3 - 19+ 3-dose series) 2016 HIV Screening 06/01/2022 Hepatitis C Screening 06/01/2022 Social Influencers of Health Screening 06/01/2022 Depression Screening 06/22/2024 COVID-19 Vaccine (3 - 2024-2 6 season) 2025 10/25/2022, 09/12/2021 Influenza Vaccine (#1) 2025 RSV Immunization Adult Patients (1 - 1-dose 75+ series) 2072 HIB Vaccines Aged Out No longer eligi ble based on patient's age to complete this topic HPV Vaccines Aged Out No longer eligi ble based on patient's age to complete this topic Hepatitis A Vaccines Aged Out No long er eligible based on patient's age to complete this topic IPV Vaccines Aged Out No longer eligi ble based on patient's age to complete this topic MMR Vaccines Aged Out No longer eligi ble based on patient's age to complete this topic Meningococcal ACWY Vaccine Aged Out N o longer eligible based on patient's age to complete this topic Meningococcal B Vaccine Aged Out No l onger eligible based on patient's age to complete this topic Pneumococcal Vaccine: Pediatrics (0 to 5 Years) and At-Risk Patients (6 to 49 Years) Aged Out No longer eligible b ased on patient's age to complete this topic RSV Immunization Patients Under 20 months Aged Out No longer eligible b ased on patient's age to complete this topic Varicella Vaccines Aged Out No longer eligible based on patient's age to complete this topic Procedures Procedure Name Priority Date/Time Associated Diagnosis Comments US SCROTUM AND CONTENTS Routine 02/08/2025 10:48 AM EDT from Last 3 Months Results * US Scrotum and Contents (02/08/2025 10:48 AM EDT) Anatomical Region Laterality Modality Body Ultrasound us Historical Provider MD [facility] US PROCEDURES Final R esult from Last 3 Months Insurance [employer] Care Teams Office Director Relationship Specialty Start Date End Date Diomedes Perez MD [address] [place] [address] PCP - General Internal Medicine 09/26/21
[2025-03-20 10:23] VITALS: BMI 28.5
--- NOTE | 2025-03-20 14:21 | HO.ANESPROP2 ---
Documented by User: Erna Pickard NP 03/20/25 14:21 HPI - Anesthesia Eval Consult details Narrative: 29yo M for Left Hernia Inguinal Reducible PMFSH Active Problems Active Problems: All Active Problems Reducible left inguinal hernia (Acute) COVID-19 (Acute) Past Medical History Medical History GERD (gastroesophageal reflux disease) No known health problems Surgical History Surgical History (Updated 03/22/25 @ 09:27 by Rosalee Carbajal RN) No pertinent past surgical history Social History Social History Alcohol intake: never Patient Tobacco Use Status: Never used Tobacco Use of substances other than those prescribed or required for medical reasons: No Are you DNR?: No Advance Directives: No Advance Directives Information Provided: Yes Meds Allergies Allergy/AdvReac Type Severity Reaction Status Date / Time No Known Allergies (No Known Allergy Verified 03/22/25 08:52 Allergies*) Exam Height,Weight and Vital Signs: Height 5 ft 9 in Weight 87.543 kg Assessment and Plan Assessment Anesthesia Assessment: Chart Reviewed Documented by User: Eligio Beth MD 03/22/25 11:02 PMFSH Past Medical History Medical History GERD (gastroesophageal reflux disease) No known health problems Family History Family history of problems with anesthesia: No Surgical History Surgical History (Updated 03/22/25 @ 09:27 by Rosalee Carbajal RN) No pertinent past surgical history History of Problems with Anesthesia: No Social History Social History Alcohol intake: never Patient Tobacco Use Status: Never used Tobacco Use of substances other than those prescribed or required for medical reasons: No Are you DNR?: No Advance Directives: No Advance Directives Information Provided: Yes Meds Allergies Allergy/AdvReac Type Severity Reaction Status Date / Time No Known Allergies (No Known Allergy Verified 03/22/25 08:52 Allergies*) Exam Airway Mallampati Class: II TM Dist: >3cm Neck ROM: Full Loose/Missing/Broken Teeth: No Heart: ok Lungs: ok Assessment and Plan Assessment Anesthesia Assessment: Anesthesia Plan Discussed Final Anesthetic Review Family History of Problems with Anesthesia: No History of Problems with Anesthesia: No NPO: Yes ASA Class: II Final Preanesthetic Review: No Changes in Pt Med Stat, Meds/Allgs Chart Reviewed, Consent Obtained/Reviewed and Anes Risks/Benef Reviewed Patient Risk: Low Procedure Risk: Low Anesthetic Plan Anesthetic Plan: GA and Agree w/ Assess. and Plan Disposition: Standard PACU
[2025-03-22] VITALS (7 sets, daily range): BP systolic 114–135; BP diastolic 76–91; PULSE 70–80; RESP 10–15; TEMP 36.3–36.8; O2SAT 98–100; BMI 29.0
[2025-03-22] MEDS: Lactated Ringers 1,000 ML 100 ML IVCONT (09:23)
--- NOTE | 2025-03-22 10:04 | MHC.SHP ---
Pre-Procedural Eval Section A - 24 Hr Update-Section A only Date of Service: 03/22/25 The patient is an INPATIENT: No Changes since office visit: Yes Patient answered all questions; No Cold of Flu in the past 2 weeks, No New Medical Problems and No Changes in Medication The patient has been examined within 24 hours of the surgical procedure. The History & Physical has been completed within 30 days and I have reviewed it.: Yes Section B - Complete if H&P > 30 days Chief Complaint: Unilateral inguinal hernia, without obstruction or Allergies: Allergies Allergy/AdvReac Type Severity Reaction Status Date / Time No Known Allergies (No Known Allergy Verified 03/22/25 08:52 Allergies*) Plan Diagnosis/Plan: Unchanged I have reviewed the history and physical and performed a pertinent physical examination on my patient. No changes have occurred unless specified. Time Spent With Patient Time: Total time managing care of this patient today ____ minutes.
--- NOTE | 2025-03-22 11:15 | P.OP_ITS ---
Operative Note Operative Note Date of Service: 03/22/25 Narrative: Preoperative diagnosis: Left inguinal hernia Postoperative diagnosis: Same Procedure: Repair of left inguinal hernia with mesh Surgeon: Paulo Stout MD Pantograph Operator: Emilie Romo PA-C; HAFSA Hoang Anesthesia: General LMA Indications for procedure: 29-year-old male patient presenting with a palpable lump in the left groin found on scrotal ultrasound to have a fat containing left inguinal hernia. He presents today for repair of the left inguinal hernia. Operative findings: No indirect hernia identified. Mild weakness noted in the floor of the inguinal canal. Specimen: None Estimated blood loss: 5 mL Complications: None Procedure details: Patient was brought to the OR and placed in a supine position. After administering general anesthesia the patient's abdomen was prepped with ChloraPrep and draped in a sterile fashion. A surgical time-out was called the consent confirmed. Patient received preoperative antibiotics and Venodyne boots were in place. Local anesthesia consisting of 0.5% Sensorcaine was infiltrated over the left inguinal ligament. Incision was then made with a scalpel and carried out through subcutaneous tissue, past Lupe's fashion up to the external oblique aponeurosis. Additional local was placed below the aponeurosis. An incision was then made with a scalpel and widened with the Metzenbaum scissors. Spermatic cord was then dissected free from the inguinal canal retracted using a [place] drain. The fibers of the cremaster muscle were and no indirect hernia could be identified. The floor of the inguinal canal was noted to be mildly weakened is. Fibers of the internal oblique and transversalis aponeurosis were between clamps and the preperitoneal space entered. This was then widened with a open Ray-Ana sponge. A medium PHS mesh was then obtained. The circular underlay was deployed within the preperitoneal space. The overlay was then secured to the pubic tubercle, conjoined tendon, and shelving edge of the inguinal ligament using a 0 Polysorb suture. A slit was made in the mesh in the mesh wrapped around the spermatic cord at the internal ring. This was then secured to the shelving edge using the 0 Polysorb suture. The wrap was tight enough to allow only the tip of the index finger to pass. Wounds were then irrigated with saline solution and suctioned dry. External oblique aponeurosis was then closed using a running 2-0 Polysorb suture. Approximately 6 mL of Zenrelef was then instilled below the aponeurosis.. Lupe's fascia and dermis were then reapproximated using interrupted 3-0 Polysorb sutures. Skin was closed using a running subcuticular 4-0 Polysorb suture. Sterile dressings consisting of Steri-Strips, 4 x 4 gauze and Tegaderm were then applied. The patient tolerated the procedure well. Sponge, instrument, and needle counts reported as correct. The patient was transferred to PACU in stable condition.
[2025-03-22] MEDS: oxyCODONE HCl Immed Release 5 MG TABLET PO (11:55)
== END 2025-03-22 12:46 | disposition home or self-care (01) ==
PROVIDERS: PCP Internal Medicine; Visit Provider Surgery
PROC: (CPT 49505; principal; 2025-03-22 10:20)
DX: K40.90 Unilateral inguinal hernia, without obstruction or gangrene, not specified as recurrent (principal)
CPT/HCPCS: 49505; C1781; J0668; J0690; J2003; J2250; J2704; J2795; J3010

== ENCOUNTER → 2025-03-22 08:32 | Outpatient (BNV) | payer OTHER, SELFPAY | PROVIDERS: PCP Internal Medicine; Visit Provider Surgery | DX: K40.90 Unilateral inguinal hernia, without obstruction or gangrene, not specified as recurrent (principal) | CPT/HCPCS: 49505 ==

== ENCOUNTER 2025-04-04 11:29 | Outpatient (AMB) | payer OTHER, SELFPAY ==
--- NOTE | 2025-04-04 11:31 | MHC.OFFVIS ---
Vital Signs 04/04/25 11:41 Weight 197 lb BP 149/98 H Blood Pressure Location Rt brachial Position Sitting Pulse 88 Intake Visit Reasons: S/P LIH w/mesh Intake Note: Patient here s/p repair of left inguinal hernia with mesh. Patient c/o: on and off sharp pains. Steri strips still in place. No longer taking rx pain med. 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 He is experiencing some pain with ambulation, reports sharp stabbing pain that radiates to his back from the incision site. No longer taking oxycodone. Additionally having pain in the testicle. States that initially he was unable to touch the area, testicle was swollen. He has been icing the area which he thinks has been helping, is a bit more comfortable over the past few days. He reports no issues with urination. He does experience some constipation, typically goes every day but now is every other or every 3rd day. Denies nausea or vomiting. Denies fevers or chills. Denies any drainage from the incision site. [facility] Medical History GERD (gastroesophageal reflux disease) No known health problems Surgical History (Updated 04/04/25 @ 12:39 by Jemal Ibarra PA-C) Hx of left inguinal hernia repair (03/22/25) No pertinent past surgical history Social History Alcohol intake: never Comment: counts correct Patient Tobacco Use Status: Never used Tobacco Physical Exam Vital Signs: Last Vital Signs Pulse 88 04/04/25 11:41 BP 149/98 H 04/04/25 11:41 Const General: comfortable and no acute distress Orientation/consciousness: patient oriented x3 GI Other: Left inguinal hernia repair incision site clean dry and intact. Steri-Strips in place, removed in office. Incision appears to be healing well some deep induration. No palpable fluid collection, no surrounding erythema. Mildly tender to palpation. Palpation (GI): Soft to palpation and nontender Other: Some mild left-sided scrotal edema, tender to palpation no ecchymosis Scrotum: testes descended bilaterally Neuro General: patient oriented x3 Assessment & Plan Assessment & Plan (1) S/P inguinal hernia repair: Comment: 03/22/2025, Dr. Stout (left) Code(s): Z98.890 - Other specified postprocedural states; Z87.19 - Personal history of other diseases of the digestive system Category: Medical Plan 29-year-old male s/p left inguinal hernia repair with Dr. Stout on 03/22/2025 returning to the office for routine follow up. Overall patient seems to be doing well. He is experiencing some pain with ambulation, describes a sharp stabbing pain at the incision site that is sometimes radiates to his back when moving around. He is able to control this with [id number] pain medications, no longer requiring oxycodone. Reassured him that this is appropriate pain at this stage postop and should continue to improve over the next few weeks. Additionally he is having some testicular pain and swelling. Denies urinary complaints. Reports the 1st few days after the procedure the testicle was very swollen and painful, sensitive to even light touch. He has been using ice at home which he thinks his improved the swelling overall. On exam there was some mild testicular swelling however both testicles are present in the scrotum. Recommend that he continue with icing 2 to 3 times a day, and reassured him that this will resolve with time. Additionally having some constipation, likely due to taking narcotics for pain postoperatively. Now that he is not taking this daily expect this to resolve however we will send for Colace as a stool softener to prevent straining with defecation. On exam the abdomen is soft and benign. Incision site appears to be healing well. There was some deep induration that likely represents a scarring of the incision site. There was no discharge drainage from the area. There was no surrounding erythema, no concern for infection at this time. He works at [employer] in his job does require heavy lifting. We will continue with activity restrictions no heavy lifting greater than 15-20 lb until May 03. He is okay to return to light duty one-week prior. He will follow up in about 3 weeks for further evaluation, can likely clear him at this time. Patient can follow up sooner as needed prior to his next follow-up for any concerns or questions. Medications: New docusate sodium (Colace) 100 mg PO BID 30 caps 0RF Coding Level of Care Code Global (49107) Diagnoses S/P inguinal hernia repair Z98.890; Z87.19
[2025-04-04 11:41] VITALS: BP 149/98; PULSE 88
== END 2025-04-04 11:52 | disposition home or self-care (01) ==
LOC: HO.HGS 11:29
PROVIDERS: PCP Internal Medicine
DX: Z98.890 Other specified postprocedural states (principal); Z87.19 Personal history of other diseases of the digestive system
CPT/HCPCS: 99024

== ENCOUNTER → 2025-04-04 11:29 | Outpatient (BNVA) | payer OTHER, SELFPAY | PROVIDERS: PCP Internal Medicine | DX: Z48.815 Encounter for surgical aftercare following surgery on the digestive system (principal); N50.89 Other specified disorders of the male genital organs; R10.32 Left lower quadrant pain; Z98.890 Other specified postprocedural states; Z87.19 Personal history of other diseases of the digestive system | CPT/HCPCS: 99212 ==

== ENCOUNTER 2025-04-25 11:38 | Outpatient (AMB) | payer OTHER, SELFPAY ==
--- NOTE | 2025-04-25 11:39 | A.OFFVIS_ITS ---
Vital Signs 04/25/25 11:44 Weight 202 lb BP 152/85 H Blood Pressure Location Rt brachial Position Sitting Pulse 88 Intake Visit Reasons: S/P LIH w/mesh Intake Note: Patient here to follow up from last visit 04-04-2025. S/p repair of left inguinal hernia with mesh. Patient c/o: constipation improved with docusate sodium. 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 Denies significant pain. scrotal swelling has resolved. he has no issue with urination. planning to return to work next tuesday 05/01. He has been avoiding heavy lifting. [facility] Medical History GERD (gastroesophageal reflux disease) No known health problems Surgical History (Updated 04/04/25 @ 12:39 by Jemal Ibarra PA-C) Hx of left inguinal hernia repair (03/22/25) No pertinent past surgical history Social History Alcohol intake: never Comment: counts correct Patient Tobacco Use Status: Never used Tobacco Review of Systems Const All systems reviewed & are unremarkable except as noted in HPI and below Physical Exam Vital Signs: Last Vital Signs Pulse 88 04/25/25 11:44 BP 152/85 H 04/25/25 11:44 Const General: comfortable and no acute distress Orientation/consciousness: patient oriented x3 Resp Effort & Inspection: normal respiratory effort and able to speak in complete sentences GI Other: LIH incision site. Well healed, no recurrence on valsalva Palpation (GI): Soft to palpation and nontender Neuro General: patient oriented x3 Assessment & Plan Assessment & Plan (1) S/P inguinal hernia repair: Comment: 03/22/2025, Dr. Stout (left) Code(s): Z98.890 - Other specified postprocedural states; Z87.19 - Personal history of other diseases of the digestive system Category: Surgical Plan 29-year-old male s/p left inguinal hernia repair with Dr. Stout on 03/22/2025 returning to the office for routine follow up. Overall patient seems to be doing well. His concerns from last visit have resolved. Bowel movements now regular. Scrotal swelling and pain also resolved. he has no complaints. Planning to return to work on 05/01. On exam his abdomen is soft and benign, incision site intact, well healed. No evidence of recurrence on valsalva. Patient is okay to return to work without restrictions on 05/01. No longer requiring follow up. Patient can follow up wiht any concerns or questions in the future. Coding Level of Care Code Global (95935) Diagnoses S/P inguinal hernia repair Z98.890; Z87.19
[2025-04-25 11:44] VITALS: BP 152/85; PULSE 88
--- OUTSIDE RECORDS SUMMARY | 2025-04-25 14:20 | XMS_ITS | Clinical Summary ---
Author Organization [facility] [address] [place] [address] Address [address] [place] [address] Phone Care Team Providers Care Technical Specialist Cytology Name Role Phone Diomedes Perez MD Primary [...] PM EDT Office Visit Adult Medicine [address] [phone] Diomedes Perez MD Inguinal hernia of left side without obstruction or gangrene (Primary Dx); Left inguinal pain 03/14/2025 Telephone Adult Medicine [address] [phone] Diomedes Perez MD 02/07/2025 3:30 PM EDT Office Visit [address] [phone] Diomedes Perez MD Inguinal hernia of left side without obstruction or gangrene (Primary Dx); Left inguinal pain 02/07/2025 Telephone Adult Medicine [address] [phone] Diomedes Perez MD from Last 3 Months [...] Care Team (Late st Contact Info) Description 09/11/2025 4:00 PM EDT Office Visit Adult Medicine [address] [phone] Diomedes Perez MD [address] [place] [address] Health Maintenance Due Date Last Done Comments DTaP,Tdap,and Td Vaccines (1 - Tdap) 2016 Hepatitis B Vaccines (1 of 3 - 19+ 3-dose series) 2016 HIV Screening 06/01/2022 Hepatitis C Screening 06/01/2022 Social Influencers of Health Screening 06/01/2022 Depression Screening 06/22/2024 HPV Vaccines (1 - 3-dose SCD M series) 2024 COVID-19 Vaccine (3 - 2024-2 6 season) [...] R esult from Last 3 Months Insurance [facility] [place] [address] Care Teams Technical Specialist Cytology Relationship Specialty Start Date End Date Diomedes Perez MD [address] [place] [address] PCP - General Internal Medicine 09/26/21
== END 2025-04-25 11:52 | disposition home or self-care (01) ==
LOC: HO.HGS 11:38
PROVIDERS: PCP Internal Medicine
DX: Z98.890 Other specified postprocedural states (principal); Z87.19 Personal history of other diseases of the digestive system
CPT/HCPCS: 99024

== ENCOUNTER → 2025-04-25 11:38 | Outpatient (BNVA) | payer OTHER, SELFPAY | PROVIDERS: PCP Internal Medicine | DX: Z48.815 Encounter for surgical aftercare following surgery on the digestive system (principal); Z98.890 Other specified postprocedural states; Z87.19 Personal history of other diseases of the digestive system | CPT/HCPCS: 99212 ==

== ENCOUNTER 2025-06-15 09:20 | Emergency (ER) | payer OTHER, SELFPAY ==
[2025-06-15 09:34] VITALS: BP 120/65; PULSE 118; RESP 18; TEMP 39.4; O2SAT 98; BMI 29.4
--- OUTSIDE RECORDS SUMMARY | 2025-06-15 09:56 | XMS_ITS | Clinical Summary ---
Author Organization [facility] [address] [facility] Address [address] [place] [address] Phone Care Team Providers Care Air Bag Curer Name Role Phone Diomedes Perez MD Primary Care Provider [phone] Allergies No known active allergies Medications ibuprofen (ADVIL,MOTRIN) 600 mg tablet Take 1 tablet (600 mg total) by mouth every 8 (eight) hours if needed for moderate pain. for pain 90 tablet 02/07/2025 Active Active Problems Problem Noted Date Diagnosed Date Gastroesophageal reflux disease without esophagi tis 12/13/2021 Social History Tobacco Use Types Packs/Day Years Used Date Smoking Tobacco: Never Smokeless Tobacco: Never Tobacco Cessation:Counseling Given: Not Answered Sex and Gender Information Value Date Recorded Sex Assigned at Not on file Legal Sex Male 10:08 PM EST Gender Identity Not on file Sexual Orientation Not on file Last Filed Vital Signs Vital Sign Reading [...] 4:00 PM EDT Office Visit Adult Medicine [facility] [address] [place] [address] Diomedes Perez MD [address] [place], [place] Health Maintenance Due Date Last Done Comments [...] on patient's age to complete this topic Insurance [facility] Care Teams Air Bag Curer Relationship Specialty Start Date End Date Diomedes Perez MD [address] [place] [address] PCP - General Internal Medicine 09/26/21
[2025-06-15 10:27] LABS: Resp Syncy Virus RNA Qual PCR NEGATIVE (Negative); SARS COV2 PCR INHOUSE NEGATIVE (Negative)
--- NOTE | 2025-06-15 10:37 | ED_ITS ---
HPI - URI/Sore Throat General Chief Complaint: Upper Respiratory Symptoms Stated Complaint: headache, body aches, N/V/D fever Time Seen by Provider: 06/15/25 09:42 History of Present Illness ED Provider: Jennifer De Leon NP HPI Narrative: 29-year-old male otherwise healthy presents to the ED with chief complaint of generalized myalgias, body aches, subjective fever and chills, nasal congestion, sore throat, cough ongoing for 2 days. No painful swallow. Denies any chest pain or pressure, shortness of breath. No abdominal pain, nausea or vomiting, urinary complaints. Did not take his temperature at home. Related Data Previous Rx's ?Medication ?Instructions ?Recorded ibuprofen 600 mg tablet 600 mg PO Q8H PRN fever or p ain 02/03/25 #30 tabs docusate sodium 100 mg capsule 100 mg PO BID #30 caps 04/04/25 (Colace) Allergies Allergy/AdvReac Type Severity Reaction Status Date / Time No Known Allergies (No Known Allergy Verified 06/15/25 09:38 Allergies*) Review of Systems Review of Systems: ROS is otherwise negative unless mentioned in HPI. [facility] Past Medical History Medical History (Updated 06/15/25 @ 12:11 by Jennifer De Leon, VIANEY-KARLENE) GERD (gastroesophageal reflux disease) No known health problems Surgical History (Updated 04/04/25 @ 12:39 by Jemal Ibarra PA-C) Hx of left inguinal hernia repair (03/22/25) No pertinent past surgical history Social History Social History Alcohol intake: never Comment: counts correct Patient Tobacco Use Status: Never used Tobacco Advance Directives: No Advance Directives Information Provided: No Do you have a plan to hurt others: No Plan Physical Exam Exam: Exam: Nursing notes and vital signs reviewed. Constitutional: Well-appearing, NAD. Alert. Oriented X3. Eyes: Pupils equal, round and reactive to light. ENT: Oropharynx erythematous, moist, uvula is midline. No exudate. Tonsils are of normal appearance bilaterally. Neck: Normal inspection. Neck supple. No cervical adenopathy. CVS: Normal heart rate and rhythm. Pulses normal. Respiratory: No respiratory distress. Breath sounds normal. Skin: Skin warm and dry. Normal skin color. Extremities: No lower extremity edema. Neuro: Oriented X 3. No motor deficit. Vital Signs: Vital Signs: Last Vital Signs Temp 98.4 F 06/15/25 12:02 Pulse 92 06/15/25 12:02 Resp 18 06/15/25 12:02 BP 110/66 06/15/25 12:02 Pulse Ox 97 06/15/25 12:02 O2 Del Method Room Air 06/15/25 12:02 BMI result Body Mass Index 29.4 Medications Administered Discontinued Medications Generic Name Dose Route Start Last Admin Trade Name Jose Juan PRN Reason Stop Dose Admin Acetaminophen 975 mg 06/15/25 09:40 06/15/25 09:55 Acetaminophen 325 Mg Tablet PO 06/15/25 09:41 975 mg ONCE ONE Administration Dexamethasone 10 mg 06/15/25 09:54 06/15/25 09:58 Dexamethasone 2 Mg Tablet PO 06/15/25 09:55 10 mg ONCE ONE Administration Ibuprofen 600 mg 06/15/25 09:54 06/15/25 09:58 Ibuprofen 600 Mg Tablet PO 06/15/25 09:55 600 mg ONCE ONE Administration Medical Decision Making Medical Decision Making [facility] Narrative: Upon my assessment, he overall does appear well. He arrives to the ED febrile with a temperature of a 103? F, and mildly tachycardic at 118. Tachycardia is likely due to his fever. His viral panel was positive for influenza a, correlating with his symptoms. However, he has had symptoms greater than 48 hours, therefore does not meet antiviral treatment requirements. We will give him Tylenol, ibuprofen, Decadron given his cough, and reassess. 12:05-- Upon reassessment, his symptoms have significantly improved. He is no longer febrile, therefore tachycardia has also since significantly improved and resolved. We will plan to have him follow up outpatient with his primary care provider. Given return precautions to the ED, for which he is agreeable. Differential Diagnosis Differential Diagnoses: The differential diagnosis associated with the presentation includes Viral illness, bronchitis, pneumonia Admission/Observation Consideration of admission/observation: Escalation of care including admission/observation considered Not indicated Lab Data [facility] Lab Attestation statement: I reviewed the patient's lab results. Positive influenza a Labs: Lab Results 06/15/25 Range/Units 09:43 Influenza Type A (PCR) POSITIVE A (Negative) Influenza Type B (PCR) NEGATIVE (Negative) RSV RNA Qual (PCR) NEGATIVE (Negative) SARS-CoV-2 RNA (RT-PCR) NEGATIVE (Negative) External Record Review External record reviewed: Outside ED record Prescription Management I considered prescription management with: Antiviral Does not meet treatment criteria Social Determinants Patient?s care significantly limited by Social Determinants of Health including: Problems related to primary support group Discharge Plan Discharge Clinical Impression: Influenza A Patient Disposition: Home, Self-Care Instructions: Droplet Precautions (ED), Influenza (DC) Additional Instructions: You were positive for influenza A in the ER today. Please follow up with your primary care provider outpatient. Please use [id number] medications such as Tylenol, ibuprofen to manage your symptoms. Return to the ED if any worsening complaints. Prescriptions: No Action ibuprofen 600 mg tablet 600 mg PO Q8H PRN (Reason: fever or pain) Qty: 30 0RF docusate sodium [Colace] 100 mg capsule 100 mg PO BID Qty: 30 0RF Referrals: Diomedes Perez MD [Primary Care Provider, Internal Medicine] Print Language: Latvian
[2025-06-15 10:44] VITALS: PULSE 115; RESP 16; TEMP 38.6; O2SAT 95
[2025-06-15 12:02] VITALS: BP 110/66; PULSE 92; RESP 18; TEMP 36.9; O2SAT 97
[2025-06-15 12:18] VITALS: BP 110/66; PULSE 92; RESP 18; TEMP 36.9; O2SAT 97
== END 2025-06-15 12:19 | disposition home or self-care (01) ==
PROVIDERS: Emergency Provider Emergency Medicine; PCP Internal Medicine
DX: J10.1 Influenza due to other identified influenza virus with other respiratory manifestations (principal); R51.9 Headache, unspecified; M79.10 Myalgia, unspecified site; Z03.818 Encounter for observation for suspected exposure to other biological agents ruled out
CPT/HCPCS: 87637; 99283; J8540